=== PATIENT | male | born 1960 | race Caucasian/White ===

== ENCOUNTER 2018-10-29 19:24 | Emergency (ER) | payer BC ==
--- OUTSIDE RECORDS SUMMARY | 2018-10-29 19:26 | XMS REPORT ---
:1960 [facility] Address [address] [place] [address] [place] [id number] Care Team Providers Name Role Phone Unavailable Unavailable Unavailable Problems This patient has no known problems. Allergies, Adverse Reactions, Alerts This patient has no known allergies or adverse reactions. Medications This patient has no known medications.
--- NOTE | 2018-10-29 20:14 | RAD REPORT ---
EXAM DESCRIPTION: CT - Head Brain Wo Cont - 10/29/2018 8:04 pm CLINICAL HISTORY: SYNCOPE Head injury COMPARISON: Head Brain Wo Cont dated 03/27/2017; Head Brain W/Wo Con dated 04/11/2016 TECHNIQUE: All CT scans are performed using dose optimization technique as appropriate and may inclu de automated exposure control or mA/KV adjustment according to patient size. FINDINGS: No intracranial hemorrhage, hydrocephalus or extra-axial fluid collection.No areas of brai n edema or evidence of midline shift. The paranasal sinuses and mastoids are clear. The calvarium is intact. IMPRESSION: No acute intracranial abnormality.
[2018-10-29 20:28] LABS: Absolute Lymphocytes (CBC) 0.9 K/uL (0.7-4.9); Absolute Monocytes 0.7 K/uL (0.1-1.3); Basophils % 0.6 % (0-1.3); Eosinophils % 6.6 % (0-4.4); Hematocrit 45.1 % (39.6-49.0); MPV 8.3 fL (7.6-11.3); Monocytes % 9.5 % (3.3-12.3); RBC Red Blood Cell Count 4.87 M/uL (4.33-5.43)
[2018-10-29 20:38] LABS: Protime INR 0.97
[2018-10-29 20:53] LABS: ALT/SGPT 36 U/L (12-78); AST/SGOT 26 U/L (15-37); Alkaline Phosphatase 47 U/L (45-117); BUN Blood Urea Nitrogen 12 mg/dL (7-18); Bicarbonate 29 mmol/L (21-32); Bilirubin Direct 0.1 mg/dL (0-0.2); Bilirubin Total 0.5 mg/dL (0.2-1.0); CKMB Creatine Kinase MB 1.9 ng/mL (0.3-3.6); Creatine Phosphokinase 88 U/L (39-308); Glucose Level 97 mg/dL (74-106); Lipase 177 U/L (73-393); Magnesium 2.4 mg/dL (1.8-2.4); Potassium 3.8 mmol/L (3.5-5.1); Protein, Total 7.2 g/dL (6.4-8.2); Sodium Level 139 mmol/L (136-145); Troponin (Emerg Dept Use Only) < 0.02 ng/mL (0.0-0.045)
[2018-10-29 21:04] LABS: Urine Blood TRACE (NEG); Urine Glucose NEGATIVE (NEG); Urine Protein NEGATIVE (NEG); Urine Specific Gravity 1.005 (1.005-1.030); Urine pH 6.5 (5.0-7.0)
--- NOTE | 2018-10-29 21:55 | EDPHYS ---
Physician Documentation [facility] Name: Ramiro Toledo Age: 58 yrs Sex: Male : 1960 Arrival Date: 10/29/2018 Time: 19:25 Bed 8 Private MD: ED Physician Gibran Joe HPI: 10/30 03:06 This 58 yrs old Male presents to ER via Ambulatory with complaints of Passed tw4 Out Prior To Arrival. 03:06 The patient has experienced near-syncope, almost passed out. Onset: The tw4 symptoms/episode began/occurred today. Duration: This was a single episode. Context: the episode(s) was witnessed, by no one. Associated injury: The patient did not suffer any apparent associated injury. Associated signs and symptoms: The patient has no apparent associated signs or symptoms. The patient has not experienced similar symptoms in the past. 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 - Social history:: Smoking status: Patient/guardian denies using tobacco. - Ebola Screening: : Patient negative for fever greater than or equal to 101.5 degrees Fahrenheit, and additional compatible Ebola Virus Disease symptoms Patient denies exposure to infectious person Patient denies travel to an Ebola-affected area in the 21 days before illness onset No symptoms or risks identified at this time. ROS: 10/30 03:06 Constitutional: Negative for fever, chills, and weight loss, Cardiovascular: Negative tw4 for chest pain, palpitations, and edema, Respiratory: Negative for shortness of breath, cough, wheezing, and pleuritic chest pain, Abdomen/GI: Negative for abdominal pain, nausea, vomiting, diarrhea, and constipation, Back: Negative for injury and pain, MS/Extremity: Negative for injury and deformity, Skin: Negative for injury, rash, and discoloration. Neuro: Positive for near syncope, Negative for altered mental status, dizziness, gait disturbance, headache, hearing loss, loss of consciousness, tinnitus, tremor, visual changes. Exam: 03:06 Abdomen/GI: Inspection: abdomen appears normal, Bowel sounds: normal, Palpation: tw4 moderate abdominal tenderness, in the umbilical area. 03:06 Constitutional: This is a well developed, well nourished patient who is awake, alert, and in no acute distress. Head/Face: Normocephalic, atraumatic. Chest/axilla: Normal chest wall appearance and motion. Nontender with no deformity. No lesions are appreciated. Cardiovascular: Regular rate and rhythm with a normal S1 and S2. No gallops, murmurs, or rubs. Normal PMI, no JVD. No pulse deficits. Respiratory: Lungs have equal breath sounds bilaterally, clear to auscultation and percussion. No rales, rhonchi or wheezes noted. No increased work of breathing, no retractions or nasal flaring. Abdomen/GI: Soft, non-tender, with normal bowel sounds. No distension or tympany. No guarding or rebound. No evidence of tenderness throughout. Back: No spinal tenderness. No costovertebral tenderness. Full range of motion. MS/ Extremity: Pulses equal, no cyanosis. Neurovascular intact. Full, normal range of motion. Neuro: Awake and alert, GCS 15, oriented to person, place, time, and situation. Cranial nerves II-XII grossly intact. Motor strength 5/5 in all extremities. Sensory grossly intact. Cerebellar exam normal. Normal gait. Vital Signs: 10/29 19:53 BP 143 / 89; Pulse 78; Resp 20; Temp 98.2; Pulse Ox 98% on R/A; Weight 70.31 kg; Height aj 5 ft. 8 in. (172.72 cm); 20:30 BP 122 / 73; Pulse 75; Resp 18; Pulse Ox 98% on R/A; ca1 21:00 BP 122 / 92; Pulse 72; Resp 18; Pulse Ox 98% on R/A; ca1 22:00 BP 138 / 83; Pulse 68; Resp 18; Pulse Ox 99% on R/A; ca1 19:53 Body Mass Index 23.57 (70.31 kg, 172.72 cm) aj MDM: 20:02 Patient medically screened. tw4 10/30 03:17 Differential Diagnosis: aortic aneurysm, cardiac arrhythmia. Data reviewed: vital tw4 signs, nurses notes. Data interpreted: Pulse oximetry: Interpretation: normal. Test interpretation: by ED physician or midlevel provider: ECG. Counseling: I had a detailed discussion with the patient and/or guardian regarding: the historical points, exam findings, and any diagnostic results supporting the discharge/admit diagnosis. Special discussion: I discussed with the patient/guardian in detail that at this point there is no indication for admission to the hospital. It is understood, however, that if the symptoms persist or worsen the patient needs to return immediately for re-evaluation. 10/29 19:53 Order name: Basic Metabolic Panel; Complete Time: 21:51 10/29 21:51 Interpretation: Normal except: GFR 60. 10/29 19:53 Order name: CBC with Diff; Complete Time: 21:51 10/29 21:51 Interpretation: Normal except: MCV 92.6. 10/29 19:53 Order name: Ckmb; Complete Time: 21:51 10/29 21:51 Interpretation: Within normal limits: CKMB 1.9. 10/29 19:53 Order name: CPK; Complete Time: 21:51 10/29 21:51 Interpretation: Within normal limits: CPK 88. 10/29 19:53 Order name: Hepatic Function; Complete Time: 21:51 10/29 21:51 Interpretation: Within normal limits. 10/29 19:53 Order name: Lipase; Complete Time: 21:51 10/29 21:52 Interpretation: Within normal limits: LIP 177. 10/29 19:53 Order name: Call for Old Records; Complete Time: 20:22 10/29 19:53 Order name: Call for Old EKG; Complete Time: 20:22 10/29 19:53 Order name: CT Head Brain wo Cont; Complete Time: 21:51 10/29 21:51 Interpretation: No acute disease. 10/29 19:53 Order name: Magnesium; Complete Time: 21:52 10/29 21:52 Interpretation: MG 2.4. 10/29 19:53 Order name: Protime (+inr); Complete Time: 21:52 10/29 21:52 Interpretation: Within normal limits: PT 11.4. 10/29 19:53 Order name: Ptt, Activated 10/29 19:53 Order name: Troponin (emerg Dept Use Only); Complete Time: 21:54 10/29 21:54 Interpretation: Within normal limits: TROPED < 0.02. 10/29 20:28 Order name: Urine Dipstick--Ancillary (enter results) [facility] 10/29 19:53 Order name: EKG; Complete Time: 19:54 10/29 19:53 Order name: Cardiac monitoring; Complete Time: 20:22 10/29 19:53 Order name: EKG - Nurse/Tech; Complete Time: 20:23 10/29 19:53 Order name: IV Saline Lock; Complete Time: 20:23 10/29 19:53 Order name: Labs collected and sent; Complete Time: 20:23 10/29 19:53 Order name: NPO; Complete Time: 20:23 10/29 19:53 Order name: O2 Per Protocol; Complete Time: 20:23 10/29 19:53 Order name: O2 Sat Monitoring; Complete Time: 20:23 10/29 19:53 Order name: Urine Dipstick-Ancillary (obtain specimen); Complete Time: 20:23 EC:06 Rate is 73 beats/min. Rhythm is regular. QRS [place] is Normal. AL interval is normal. QRS tw4 interval is normal. QT interval is normal. No Q waves. T waves are Normal. No ST changes noted. Clinical impression: Normal ECG. Interpreted by me. Reviewed by me. Administered Medications: No medications were administered Disposition: 10/29/18 21:55 Discharged to Home. Impression: near syncope, Vasovagal episode. - Condition is Stable. - Discharge Instructions: Vasovagal Syncope, Adult. - Medication Reconciliation Form, Thank You Letter, Antibiotic Education, Prescription Opioid Use form. - Follow up: Private Physician; When: Upon discharge from the Emergency Department; Reason: Recheck today's complaints, Continuance of care. - Problem is new. - Symptoms have improved. Signatures: Dispatcher [employer] EDAngie García RN RN aj Wadley, Terrence, MD MD tw4 Fay Mendez RN RN ca1 Corrections: (The following items were deleted from the chart) 10/29 22:16 21:55 10/29/2018 21:55 Discharged to Home. Impression: near syncope; Vasovagal episode. ca1 Condition is Stable. Forms are Medication Reconciliation Form, Thank You Letter, Antibiotic Education, Prescription Opioid Use. Follow up: Private Physician; When: Upon discharge from the Emergency Department; Reason: Recheck today's complaints, Continuance of care. Problem is new. Symptoms have improved. tw4
--- NOTE | 2018-10-29 21:55 | ER ---
Nurse's Notes 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 Patient reports catching himself before he hit the floor and assisted himself to the ground. Transition of care: patient was not received from another setting of care. Onset of symptoms was October 29, 2018. Risk Assessment: Do you want to hurt yourself or someone else? Patient reports no desire to harm self or others. Initial Sepsis Screen: Does the patient meet any 2 criteria? No. Patient's initial sepsis screen is negative. Does the patient have a suspected source of infection? No. Patient's initial sepsis screen is negative. Care prior to arrival: None. 19:51 Method Of Arrival: Ambulatory 19:51 Acuity: LATASHA 3 aj Triage Assessment: 19:53 General: Appears in no apparent distress. comfortable, Behavior is calm, cooperative, aj appropriate for age. Pain: Denies pain. Neuro: Level of Consciousness is awake, alert, obeys commands, Oriented to person, place, time, situation, Appropriate for age Reports a syncopal episode. Respiratory: Airway is patent Respiratory effort is even, unlabored, Respiratory pattern is regular, symmetrical. Derm: Skin is intact, is healthy with good turgor, Skin is pink, warm \T\ dry. normal. Historical: - Allergies: 19:53 No Known Allergies; aj - Home Meds: 19:53 Lipitor 10 mg Oral tab 1 tab once daily [Active]; symbacort inh [Active]; levothyroxine aj 50 mcg tab 1 tab once daily [Active]; atorvastatin 10 mg oral tab 1 tab once daily [Active]; aspirin 81 mg Oral chew 1 tab once daily [Active]; - PMHx: 19:53 tonsillar cancer; CVA; aj - PSHx: 19:53 Knee surgery; elbow; shoulder; aj - Immunization history:: Adult Immunizations up to date. - Social history:: Smoking status: Patient/guardian denies using tobacco. - Ebola Screening: : Patient negative for fever greater than or equal to 101.5 degrees Fahrenheit, and additional compatible Ebola Virus Disease symptoms Patient denies exposure to infectious person Patient denies travel to an Ebola-affected area in the 21 days before illness onset No symptoms or risks identified at this time. Screenin:55 Abuse screen: Denies threats or abuse. Denies injuries from another. Nutritional ca1 screening: No deficits noted. Tuberculosis screening: No symptoms or risk factors identified. Fall Risk Fall in past 12 months (25 points). Assessment: 19:55 General: Appears in no apparent distress. Behavior is calm, cooperative. Pain: Denies ca1 pain. Neuro: Level of Consciousness is awake, alert, obeys commands, Oriented to person, place, time, situation. Cardiovascular: Reports syncope, since around 1900H while trying to hold his breath to relieve a hiccup. Heart tones S1 S2 present Capillary refill < 3 seconds Patient's skin is warm and dry. 19:55 Respiratory: Airway is patent Trachea midline Respiratory effort is even, unlabored, ca1 Respiratory pattern is regular, symmetrical, Breath sounds are clear bilaterally. GI: Abdomen is flat, non-distended, Bowel sounds present X 4 quads. Abd is soft and non tender X 4 quads. : No signs and/or symptoms were reported regarding the genitourinary system. EENT: No signs and/or symptoms were reported regarding the EENT system. Derm: Skin is intact, is healthy with good turgor, Skin is pink, warm \T\ dry. Musculoskeletal: Circulation, motion, and sensation intact. Capillary refill < 3 seconds, Range of motion: intact in all extremities. 21:28 Reassessment: Patient appears in no apparent distress at this time. Patient and/or ca1 family updated on plan of care and expected duration. Pain level reassessed. Patient is alert, oriented x 3, equal unlabored respirations, skin warm/dry/pink. sitting on bed with family at bedside. 22:00 Reassessment: Patient appears in no apparent distress at this time. Patient and/or ca1 family updated on plan of care and expected duration. Pain level reassessed. Patient is alert, oriented x 3, equal unlabored respirations, skin warm/dry/pink. Vital Signs: 19:53 BP 143 / 89; Pulse 78; Resp 20; Temp 98.2; Pulse Ox 98% on R/A; Weight 70.31 kg; Height aj 5 ft. 8 in. (172.72 cm); 20:30 BP 122 / 73; Pulse 75; Resp 18; Pulse Ox 98% on R/A; ca1 21:00 BP 122 / 92; Pulse 72; Resp 18; Pulse Ox 98% on R/A; ca1 22:00 BP 138 / 83; Pulse 68; Resp 18; Pulse Ox 99% on R/A; ca1 19:53 Body Mass Index 23.57 (70.31 kg, 172.72 cm) ED Course: 19:25 Patient arrived in ED. ag3 19:52 Triage completed. 19:53 Arm band placed on left wrist. Patient placed in an exam room. 19:55 Patient has correct armband on for positive identification. Placed in gown. Bed in low ca1 position. Call light in reach. Side rails up X 1. talent acquisition assistant on. Pulse ox on. NIBP on. Warm blanket given. 19:[address] 2 20:00 Initial lab(s) drawn, by ED staff, sent to lab. Inserted saline lock: 20 gauge in left ca1 antecubital area, using aseptic technique. Blood collected. 20:02 Gibran Joe MD is Attending Physician. tw4 20:05 Fay Mendez RN is Primary Nurse. ca1 20:08 CT Head Brain wo Cont In Process Unspecified. EDMS 22:10 No provider procedures requiring assistance completed. IV discontinued, intact, ca1 bleeding controlled, No redness/swelling at site. Pressure dressing applied. Administered Medications: No medications were administered Outcome: 21:55 Discharge ordered by . tw4 22:10 Discharged to home ambulatory, with significant other. ca1 22:10 Condition: stable 22:10 Discharge instructions given to patient, significant other, Instructed on discharge instructions, follow up and referral plans. Demonstrated understanding of instructions, follow-up care. 22:16 Patient left the ED. ca1 Signatures: Dispatcher [employer] EDAngie García, RN RN Miryam [facility] Gibran Joe MD MD [facility] Isabel Ortiz 3 Fay Mendez RN RN ca1 Corrections: (The following items were deleted from the chart) 21:23 19:55 Cardiovascular: Reports syncope, since 1900H. Heart tones S1 S2 present ca1 ca1 : 21:00 Abuse screen: Denies threats or abuse. Denies injuries from another. ca1 ca1 21:00 Nutritional screening: No deficits noted. ca1 ca1 :: Tuberculosis screening: No symptoms or risk factors identified. ca1 ca1 : 21: Fall Risk Fall in past 12 months (25 points). ca1 ca1
[2018-10-29 22:23] VITALS: TEMP 98.2
[2018-10-29 22:28] VITALS: BP 138/83; O2SAT 99
--- NOTE | 2018-10-30 07:36 | EKG ---
Test Date: 2018-10-29 Test Time: 20:17:07 Receptionist/Telephone Operator: LIANNA MEASUREMENT RESULTS: Intervals: Rate: 73 FL: 162 QRSD: 98 QT: 380 QTc: 418 [place]: P: 58 FL: 162 QRS: 69 T: 48 INTERPRETIVE STATEMENTS: Normal sinus rhythm Normal ECG Compared to ECG 03/27/2017 20:15:27 Right-axis deviation no longer present Incomplete right bundle-branch block no longer present ST (T wave) deviation no longer present Electronically Signed On 10-30-18 07:36:02 FRAMING MANAGER by Conrado Astudillo
== END 2018-10-29 22:16 | disposition home or self-care (01) ==
LOC: ER 19:24
DX: R55 Syncope and collapse (principal); Z86.73 Personal history of transient ischemic attack (TIA), and cerebral infarction without residual deficits
CPT/HCPCS: 36415; 70450; 80048; 80076; 81003; 82550; 82553; 83690; 83735; 84484; 85025; 85610; 85730; 93005; 99285

== ENCOUNTER 2021-02-28 10:47 | Inpatient (IN) | payer BC ==
--- OUTSIDE RECORDS SUMMARY | 2021-02-28 10:51 | XMS REPORT | Continuity of Care Document ---
:[address] [facility] t Address [address] [place] [address] Care Team Providers Name Role Phone Checo BERMUDEZ Attending Clinician Problems This patient has no known problems. Allergies, Adverse Reactions, Alerts This patient has no known allergies or adverse reactions. Medications This patient has no known medications. Procedures This patient has no known procedures. Encounters Start End Encounter Admission Attending Care Care Encounter Source Date/Time Date/Time Type Type Clinicians Facility Department ID 2021-02-21 2021-02-21 Office BUD [place] [id number] 06:54:52 07:30:14 Visit [facility] [id number] [place] [id number] [place] [id number] [place] 044 Office [address] One Results This patient has no known results.
--- NOTE | 2021-02-28 11:13 | RAD REPORT ---
EXAM DESCRIPTION: CT - Ct Stroke Brain Wo Cont - 02/28/2021 11:03 am CLINICAL HISTORY: LT SIDE NUMBNESS COMPARISON: Head Brain Wo Cont dated 10/29/2018 TECHNIQUE: Axial 5 millimeter thick images of the head were obtained without IV contrast. All CT scans are performed using dose optimization technique as appropriate and may include automated exposure control or mA/KV adjustment according to patient size. FINDINGS: No intracranial hemorrhage is present. There is no mass, edema or shift of midline structu res. No acute cortical based infarction identified. No cortical edema or sulcal effacement. No extra- axial fluid collections. Patten matter-white matter differentiation is preserved.No significant atroph y changes are present and no significant chronic ischemic change. Intracranial findings are similar t o the October comparison. Visualized portions of the mastoid air cells, paranasal sinuses, and orbits are unremarkable. Findings telephoned to Dr Pandey 11:07 a.m.. IMPRESSION: No CT evidence of acute intracranial process. No significant change from October 2018.
[2021-02-28] MEDS ORDERED: ASPIRIN 81 MG CHEWABLE TABLET ONE (11:46)
[2021-02-28 11:47] LABS: Protime INR 0.86
[2021-02-28] MEDS ORDERED: NA CHLORIDE 0.9% 1,000 ML ONE (11:47)
[2021-02-28] MEDS ORDERED: FOLIC ACID 5 MG/ML VIAL ONE (11:47)
[2021-02-28 11:50] LABS: Absolute Lymphocytes (CBC) 0.8 K/uL (0.7-4.9); Basophils % 0.4 % (0-1.3); Hematocrit 42.4 % (39.6-49.0); Lymphocytes % 9.9 % (15.3-44.8); MPV 9.4 fL (7.6-11.3); RBC Red Blood Cell Count 4.72 M/uL (4.33-5.43)
--- NOTE | 2021-02-28 12:07 | RAD REPORT ---
EXAM DESCRIPTION: MRI - Brain Wo Cont - 02/28/2021 11:52 am CLINICAL HISTORY: NUMBNESS COMPARISON: MRA Head Wo Cont dated 06/20/2016 TECHNIQUE: Sagittal T1-weighted images were obtained along with axial PD, heavily T2-weighted and T2 -FLAIR images. Axial DWI and ADC mapping sequences were also obtained along with coronal heavily T2-w eighted images. FINDINGS: No intracranial hemorrhage is present. Diffusion-weighted imaging shows multiple punctate areas of restricted diffusion scattered in the frontal and parietal lobes. There is corresponding dim inished signal on ADC mapping. This shower emboli pattern is in the distribution of the right middle cerebral artery. No anterior or posterior cerebral artery distribution infarction changes are present . The left hemisphere is clear. No abnormalities of the cerebellum. A minimal focus of gliosis is present in the posterior medial and inferior aspect of the left occipit al lobe. Overall patient has no measurable chronic ischemic change and no significant atrophy. Ventri cles are normal. There is no edema or shift of midline structures. No extra-axial fluid collections. Patten-matter/white matter junction is preserved. Signal voids are seen as a normal finding in the you r intracranial vessels. No sella or supra sella abnormality. Mastoid air cells and paranasal sinuses are clear. Findings discussed with doctor Pandey 12:03 p.m. IMPRESSION: Patient has several punctate nonhemorrhagic foci of acute infarction in the right fronta l and parietal lobes in the distribution of the right middle cerebral artery. This shower emboli pattern could be arising from the proximal right middle cerebral artery. A more p roximal source for shower emboli is possible as well given the dominant distribution pattern of the r ight middle cerebral artery. Patient has no significant underlying atrophy or chronic ischemic change. There does appear to be in minute focus of gliosis in the posteromedial left occipital lobe.
--- NOTE | 2021-02-28 12:13 | ER ---
Nurse's Notes [facility] Name: Ramiro Toledo Age: 61 yrs Sex: Male : 1960 Arrival Date: 02/28/2021 Time: 10:49 Bed 25 Private MD: Quintin Kessler S Diagnosis: Cerebral infarction-acute, onset 930 am, confirmed Presentation: 02/28 11:06 Chief complaint: Patient states: about 930 i noticed it felt like a sack of bricks on tw2 my neck, there is tingling \T\ numbness in my left arm and my left 3rd, 4th, \T\ 5th finger. i have herniated disc in my neck so it thought it was that but it also feels like numbness in my tongue and like i am having trouble swallowing. Chief complaint: Spouse and/or significant other states: he also had a previous stroke. Coronavirus screen: At this time, the client does not indicate any symptoms associated with coronavirus-19. Ebola Screen: Patient denies travel to an Ebola-affected area in the 21 days before illness onset. Initial Sepsis Screen: Does the patient meet any 2 criteria? No. Patient's initial sepsis screen is negative. Does the patient have a suspected source of infection? No. Patient's initial sepsis screen is negative. Risk Assessment: Do you want to hurt yourself or someone else?. Onset of symptoms was February 28, 2021 at 09:30. 11:06 Method Of Arrival: Wheelchair tw2 11:06 Acuity: LATASHA 2 tw2 Triage Assessment: 11:09 General: Appears in no apparent distress. slender, Behavior is calm, cooperative, tw2 appropriate for age. Pain: Denies pain. Neuro: Reports numbness in left side of face, tongue, and left arm since 929. 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 - Social history:: Smoking status: . - Family history:: not pertinent. Screenin:14 Abuse screen: Denies threats or abuse. Denies injuries from another. Nutritional ss screening: No deficits noted. Tuberculosis screening: Never had TB. Fall Risk None identified. 11:15 VAN Screening: Arm Drift: Patient shows no arm weakness. Patient is VAN negative. bp Assessment: 11:00 General: SEE TRIAGE NOTE. PT RETURNED FROM CT. bp 11:35 Reassessment: Patient appears in no apparent distress at this time. Patient and/or bp family updated on plan of care and expected duration. Pain level reassessed. PT TO MRI Patient states symptoms have improved. 12:19 Reassessment: CONSENT FOR TPA SIGNED AND WITNESSED. PT NIHSS AT 0. bp 13:00 Reassessment: No changes from previously documented assessment. U/S AT B/S FOR CAROTIDS.bp 13:30 Reassessment: Patient appears in no apparent distress at this time. No changes from bp previously documented assessment. Patient and/or family updated on plan of care and expected duration. Pain level reassessed. PT TO CT. TPA INFUSION COMPLETED. PT ON ER HOLD, SEE [facility]. Vital Signs: 11:10 BP 124 / 79; tw2 11:15 BP 129 / 89; Pulse 82; Resp 19; Temp 98; Pulse Ox 100% ; Weight 67.2 kg; bp 12:20 BP 121 / 106; Pulse 81; Resp 17; Pulse Ox 100% ; bp 13:30 BP 142 / 72; Pulse 80; Resp 17; Pulse Ox 99% ; bp NIH Stroke Scale Scores: 11:15 NIHSS Score: 0 bp 11:29 NIHSS Score: 0 mervat ED Course: 10:49 Patient arrived in ED. mr 10:50 Quintin Kessler MD is Private Physician. mr 11:03 Ct Stroke Brain Wo Cont In Process Unspecified. EDMS 11:08 Triage completed. tw2 11:08 Arm band placed on. tw2 11:12 Raul Pandey MD is Attending Physician. mervat 11:14 EKG done, by ED staff, reviewed by Raul Pandey MD. ss 11:15 Inserted saline lock: 20 gauge in left forearm, using aseptic technique. Blood bp collected. 11:20 Julius Willard, RN is Primary Nurse. bp 11:32 XRAY Chest (1 view) In Process Unspecified. EDMS 11:37 Patient has correct armband on for positive identification. Bed in low position. Call bp light in reach. Side rails up X2. Adult w/ patient. 11:52 Brain Wo Cont In Process Unspecified. EDMS 12:12 Tessie Grajeda MD is Hospitalizing Provider. mervat 12:29 Radiology exam delayed due to. aa4 13:30 No provider procedures requiring assistance completed. Patient admitted, IV remains in bp place. 21:42 Primary Nurse role handed off by Julius Willard, RN tt3 Administered Medications: 11:30 Drug: NS 0.9% 1000 ml Route: IV; Rate: 1 bolus; Site: left forearm; bp 12:35 Follow up: IV Status: Completed infusion; IV Intake: 1000ml bp 11:30 Drug: foLIC Acid 1 mg Route: IVPB; Site: left forearm; bp 12:36 Follow up: IV Status: Completed infusion bp 11:30 Drug: Aspirin Chewable Tablet 324 mg Route: PO; bp 12:19 Follow up: Response: No adverse reaction bp 12:30 Drug: ACTIvase (alteplase) {Co-Signature: sv (Daija Hutchinson RN).} Route: IV bp Thrombolytics; Rate: calculated rate; Infused Over: 60 mins; Intake: 12:35 IV: 1000ml; Total: 1000ml. bp Outcome: 12:13 Decision to Hospitalize by Provider. mervat 13:30 Admitted to ER Hold. Please see [facility] for further documentation. bp 13:30 Condition: stable 13:30 Instructed on the need for admit. 03/01 18:50 Patient left the ED. aa5 NIH Stroke Scale - NIH Stroke Score Date: 02/28/2021 Time: 11:15 Total Score = 0 1a. Level of Consciousness (LOC) - 0(Alert) 1b. Level of Consciousness (LOC) (Year \T\ Age) - 0(Both) 1c. LOC Commands (Open \T\ Closes Eyes/Investment Fund Manager) - 0(Both) 2. Best Gaze (Lateral Gaze Paresis) - 0(Normal) 3. Visual Field Loss - 0(No visual loss) 4. Facial Palsy - 0(Normal) 5a. Left Arm: Motor (10-second hold) - 0(No drift) 5b. Right Arm: Motor (10-second hold) - 0(No drift) 6a. Left Leg: Motor (5-second hold - always test supine) - 0(No drift) 6b. Right Leg: Motor (5-second hold - always test supine) - 0(No drift) 7. Limb Ataxia (finger/nose \T\ heel/solano - test with eyes open) - 0(Absent) 8. Sensory Loss (pinprick arms/legs/face) - 0(Normal) 9. Best Language: Aphasia (description/naming/reading) - 0(No aphasia) 10. Dysarthria (speech clarity - read or repeat words) - 0(Normal) 11. Extinction and Inattention (visual/tactile/auditory/spatial/personal) - 0(No abnormality) Initials: bp NIH Stroke Scale - NIH Stroke Score Date: 02/28/2021 Time: 11:29 Total Score = 0 1a. Level of Consciousness (LOC) - 0(Alert) 1b. Level of Consciousness (LOC) (Year \T\ Age) - 0(Both) 1c. LOC Commands (Open \T\ Closes Eyes/Investment Fund Manager) - 0(Both) 2. Best Gaze (Lateral Gaze Paresis) - 0(Normal) 3. Visual Field Loss - 0(No visual loss) 4. Facial Palsy - 0(Normal) 5a. Left Arm: Motor (10-second hold) - 0(No drift) 5b. Right Arm: Motor (10-second hold) - 0(No drift) 6a. Left Leg: Motor (5-second hold - always test supine) - 0(No drift) 6b. Right Leg: Motor (5-second hold - always test supine) - 0(No drift) 7. Limb Ataxia (finger/nose \T\ heel/solano - test with eyes open) - 0(Absent) 8. Sensory Loss (pinprick arms/legs/face) - 0(Normal) 9. Best Language: Aphasia (description/naming/reading) - 0(No aphasia) 10. Dysarthria (speech clarity - read or repeat words) - 0(Normal) 11. Extinction and Inattention (visual/tactile/auditory/spatial/personal) - 0(No abnormality) Initials: mervat Signatures: Dispatcher [employer] Raul Jacob MD MD cha Rivera Guillermina mr Green, Angie aa4 Milly Vázquez, RN RN aa5 Debbie Jacobsen, BAM RN ss Dona Gaston RN RN tw2 Julius Willard RN RN bp Garland, Phillip tt3 aDija Hutchinson RN sv Corrections: (The following items were deleted from the chart) 02/28 11:37 11:15 BP 129 / 89; Pulse 82bpm; Resp 19bpm; Pulse Ox 100%; bp bp 12:17 11:15 BP 129 / 89; Pulse 82bpm; Resp 19bpm; Pulse Ox 100%; Temp 98F; bp bp 13:37 13:30 Reassessment: Patient appears in no apparent distress at this time. No bp changes from previously documented assessment. Patient and/or family updated on plan of care and expected duration. Pain level reassessed. PT TO CT. TPA INFUSION COMPLETED bp
--- NOTE | 2021-02-28 12:14 | EDPHYS ---
Physician Documentation [facility] Name: Ramiro Toledo Age: 61 yrs Sex: Male : 1960 Arrival Date: 02/28/2021 Time: 10:49 Bed 25 Private MD: Quintin Kessler S ED Physician Raul Pandey HPI: 02/28 11:23 This 61 yrs old Male presents to ER via Wheelchair with complaints of mervat Numbness Of Arm, Facial Numbness. 11:23 The patient or guardian complains of numbness fingers 3.4 and 5, left trap and cheek, mervat 90 % resolved occurred at 930 am. The complaints affect the left hand. Context: The problem was sustained at work. Onset: The symptoms/episode began/occurred just prior to arrival, 2 hour(s) ago. Treatment prior to arrival includes: no previous treatment. Modifying factors: The symptoms are alleviated by nothing. the symptoms are aggravated by nothing. Associated signs and symptoms: Pertinent positives: numbness, tingling, of the face, back and left hand. Severity of symptoms: At their worst the symptoms were mild, in the emergency department the symptoms have resolved, 90 %, not a tpa candidate. The patient has not experienced similar symptoms in the past. 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 - Social history:: Smoking status: . - Family history:: not pertinent. ROS: 11:23 Constitutional: Negative for fever, chills, and weight loss, Eyes: Negative for injury, mervat pain, redness, and discharge, ENT: Negative for injury, pain, and discharge, Neck: Negative for injury, pain, and swelling, Cardiovascular: Negative for chest pain, palpitations, and edema, Respiratory: Negative for shortness of breath, cough, wheezing, and pleuritic chest pain, Abdomen/GI: Negative for abdominal pain, nausea, vomiting, diarrhea, and constipation, Back: Negative for injury and pain, : Negative for injury, bleeding, discharge, and swelling, MS/Extremity: Negative for injury and deformity, Skin: Negative for injury, rash, and discoloration, Psych: Negative for depression, anxiety, suicide ideation, homicidal ideation, and hallucinations, Allergy/Immunology: Negative for hives, rash, and allergies, Endocrine: Negative for neck swelling, polydipsia, polyuria, polyphagia, and marked weight changes. 11:23 Neuro: Positive for numbness, of the face, back and left hand. Exam: 11:23 Constitutional: This is a well developed, well nourished patient who is awake, alert, mervat and in no acute distress. Head/Face: Normocephalic, atraumatic. Eyes: Pupils equal round and reactive to light, extra-ocular motions intact. Lids and lashes normal. Conjunctiva and sclera are non-icteric and not injected. Cornea within normal limits. Periorbital areas with no swelling, redness, or edema. ENT: Nares patent. No nasal discharge, no septal abnormalities noted. Tympanic membranes are normal and external auditory canals are clear. Oropharynx with no redness, swelling, or masses, exudates, or evidence of obstruction, uvula midline. Mucous membranes moist. Neck: Trachea midline, no thyromegaly or masses palpated, and no cervical lymphadenopathy. Supple, full range of motion without nuchal rigidity, or vertebral point tenderness. No Meningismus. Chest/axilla: Normal chest wall appearance and motion. Nontender with no deformity. No lesions are appreciated. Cardiovascular: Regular rate and rhythm with a normal S1 and S2. No gallops, murmurs, or rubs. Normal PMI, no JVD. No pulse deficits. Respiratory: Lungs have equal breath sounds bilaterally, clear to auscultation and percussion. No rales, rhonchi or wheezes noted. No increased work of breathing, no retractions or nasal flaring. Abdomen/GI: Soft, non-tender, with normal bowel sounds. No distension or tympany. No guarding or rebound. No evidence of tenderness throughout. Back: No spinal tenderness. No costovertebral tenderness. Full range of motion. Male : Normal genitalia with no discharge or lesions. Skin: Warm, dry with normal turgor. Normal color with no rashes, no lesions, and no evidence of cellulitis. MS/ Extremity: Pulses equal, no cyanosis. Neurovascular intact. Full, normal range of motion. Neuro: Awake and alert, GCS 15, oriented to person, place, time, and situation. Cranial nerves II-XII grossly intact. Motor strength 5/5 in all extremities. Sensory grossly intact. Cerebellar exam normal. Normal gait. Psych: Awake, alert, with orientation to person, place and time. Behavior, mood, and affect are within normal limits. 11:32 ECG was reviewed by the Attending Physician. [facility] Vital Signs: 11:10 BP 124 / 79; tw2 11:15 BP 129 / 89; Pulse 82; Resp 19; Temp 98; Pulse Ox 100% ; Weight 67.2 kg; bp 12:20 BP 121 / 106; Pulse 81; Resp 17; Pulse Ox 100% ; bp 13:30 BP 142 / 72; Pulse 80; Resp 17; Pulse Ox 99% ; bp NIH Stroke Scale Scores: 11:15 NIHSS Score: 0 bp 11:29 NIHSS Score: 0 mervat MDM: 11:12 Patient medically screened. [facility] 11:30 Data reviewed: vital signs, nurses notes, lab test result(s), EKG, radiologic studies. [facility] Data interpreted: monitoring specialist: rate is 82 beats/min, rhythm is normal sinus rhythm, Pulse oximetry: on room air is 100 %. Test interpretation: by ED physician or midlevel provider: ECG, plain radiologic studies. Counseling: I had a detailed discussion with the patient and/or guardian regarding: the historical points, exam findings, and any diagnostic results supporting the discharge/admit diagnosis, lab results, radiology results. 12:23 Physician consultation: Reese Frazier MD and will see patient in inpatient room, with [facility] results of mri , tpa recommended , within 3 hour window, onset 930pm. ED course: family wanted to confirm cva on mri before tpa, since within the window and 90% pluce back to normal. 02/28 11:14 Order name: Basic Metabolic Panel; Complete Time: 13:20 [facility] 02/28 11:14 Order name: CBC with Diff; Complete Time: 13:20 [facility] 02/28 11:14 Order name: LFT's; Complete Time: 13:20 [facility] 02/28 11:14 Order name: Magnesium; Complete Time: 13:20 [facility] 02/28 11:14 Order name: NT PRO-BNP; Complete Time: 13:20 [facility] 02/28 11:14 Order name: PT-INR; Complete Time: 12:15 [facility] 02/28 11:14 Order name: Troponin (emerg Dept Use Only); Complete Time: 13:20 [facility] 02/28 11:14 Order name: Sed Rate; Complete Time: 13:20 [facility] 02/28 11:14 Order name: CRP; Complete Time: 13:20 [facility] 02/28 11:25 Order name: Glucose, Ancillary Testing [facility] 02/28 13:12 Order name: SARS-COV-2 RT PCR; Complete Time: 13:20 [facility] 02/28 23:47 Order name: Urinalysis [facility] 03/01 06:01 Order name: CBC with Automated Diff [facility] 02/28 11:02 Order name: Ct Stroke Brain Wo Cont; Complete Time: 12:15 [facility] 02/28 11:14 Order name: XRAY Chest (1 view); Complete Time: 13:20 [facility] 02/28 11:23 Order name: US Carotid Artery Bilateral [facility] 02/28 11:50 Order name: Brain Wo Cont; Complete Time: 12:15 [facility] 02/28 12:08 Order name: CT Head Angio [facility] 02/28 12:08 Order name: Echo w/ Doppler [facility] 02/28 12:10 Order name: Neck Angio [facility] 02/28 14:10 Order name: CT [facility] 02/28 14:47 Order name: US [facility] 03/01 06:06 Order name: Basic Metabolic Panel [facility] 03/01 06:06 Order name: Lipid Profile [facility] 03/01 06:26 Order name: PTT, Activated Partial Thromb [facility] 02/28 11:14 Order name: EKG; Complete Time: 11:16 [facility] 02/28 11:14 Order name: Cardiac monitoring; Complete Time: 11:16 [facility] 02/28 11:14 Order name: EKG - Nurse/Tech; Complete Time: 11:16 [facility] 02/28 11:14 Order name: IV Saline Lock; Complete Time: 11:16 [facility] 02/28 11:14 Order name: Labs collected and sent; Complete Time: 11:16 [facility] 02/28 11:14 Order name: O2 Per Protocol; Complete Time: 11:16 [facility] 02/28 11:14 Order name: O2 Sat Monitoring; Complete Time: : [facility] 02/28 11:15 Order name: Urine Dipstick-Ancillary (obtain specimen); Complete Time: 20:23 [facility] EC:32 Rate is 77 beats/min. Rhythm is regular. QRS [place] is Normal. MD interval is normal. QRS mervat interval is normal. QT interval is normal. No Q waves. T waves are Normal. No ST changes noted. Clinical impression: Normal ECG and No evidence of ischemia. Interpreted by me. Reviewed by me. Administered Medications: 11:30 Drug: NS 0.9% 1000 ml Route: IV; Rate: 1 bolus; Site: left forearm; bp 12:35 Follow up: IV Status: Completed infusion; IV Intake: 1000ml bp 11:30 Drug: foLIC Acid 1 mg Route: IVPB; Site: left forearm; bp 12:36 Follow up: IV Status: Completed infusion bp 11:30 Drug: Aspirin Chewable Tablet 324 mg Route: PO; bp 12:19 Follow up: Response: No adverse reaction bp 12:30 Drug: ACTIvase (alteplase) {Co-Signature: sv (Daija Hutchinson RN).} Route: IV bp Thrombolytics; Rate: calculated rate; Infused Over: 60 mins; Disposition: 02/28/21 12:13 Hospitalization ordered by Tessie Grajeda for Inpatient Admission. Preliminary diagnosis is Cerebral infarction - acute, onset 930 am, confirmed. - Bed requested for Telemetry/MedSurg (Inpatient). - Status is Inpatient Admission. aa5 - Condition is Stable. - Problem is new. - Symptoms have improved. NIH Stroke Scale - NIH Stroke Score Date: 02/28/2021 Time: 11:15 Total Score = 0 1a. Level of Consciousness (LOC) - 0(Alert) 1b. Level of Consciousness (LOC) (Year \T\ Age) - 0(Both) 1c. LOC Commands (Open \T\ Closes Eyes/Vascular Manager) - 0(Both) 2. Best Gaze (Lateral Gaze Paresis) - 0(Normal) 3. Visual Field Loss - 0(No visual loss) 4. Facial Palsy - 0(Normal) 5a. Left Arm: Motor (10-second hold) - 0(No drift) 5b. Right Arm: Motor (10-second hold) - 0(No drift) 6a. Left Leg: Motor (5-second hold - always test supine) - 0(No drift) 6b. Right Leg: Motor (5-second hold - always test supine) - 0(No drift) 7. Limb Ataxia (finger/nose \T\ heel/solano - test with eyes open) - 0(Absent) 8. Sensory Loss (pinprick arms/legs/face) - 0(Normal) 9. Best Language: Aphasia (description/naming/reading) - 0(No aphasia) 10. Dysarthria (speech clarity - read or repeat words) - 0(Normal) 11. Extinction and Inattention (visual/tactile/auditory/spatial/personal) - 0(No abnormality) Initials: bp NIH Stroke Scale - NIH Stroke Score Date: 02/28/2021 Time: Total Score = 0 1a. Level of Consciousness (LOC) - 0(Alert) 1b. Level of Consciousness (LOC) (Year \T\ Age) - 0(Both) 1c. LOC Commands (Open \T\ Closes Eyes/Vascular Manager) - 0(Both) 2. Best Gaze (Lateral Gaze Paresis) - 0(Normal) 3. Visual Field Loss - 0(No visual loss) 4. Facial Palsy - 0(Normal) 5a. Left Arm: Motor (10-second hold) - 0(No drift) 5b. Right Arm: Motor (10-second hold) - 0(No drift) 6a. Left Leg: Motor (5-second hold - always test supine) - 0(No drift) 6b. Right Leg: Motor (5-second hold - always test supine) - 0(No drift) 7. Limb Ataxia (finger/nose \T\ heel/solano - test with eyes open) - 0(Absent) 8. Sensory Loss (pinprick arms/legs/face) - 0(Normal) 9. Best Language: Aphasia (description/naming/reading) - 0(No aphasia) 10. Dysarthria (speech clarity - read or repeat words) - 0(Normal) 11. Extinction and Inattention (visual/tactile/auditory/spatial/personal) - 0(No abnormality) Initials: mervat Signatures: Dispatcher [employer] Amparo Russell Corey, MD MD cha Calderon, Audri, RN RN aa5 Debbie Jacobsen, RN RN ss Dona Gaston, RN RN tw2 Julius Willard, RN RN bp Daija Hutchinson RN sv Corrections: (The following items were deleted from the chart) 11:28 11:15 Neck Angio ordered. EDUT EDMS 11:28 11:16 Head Angio+CT.RAD.BRZ ordered. EDUT EDMS 11:50 11:23 MR STROKE PROTOCOL+MRI.RAD.BRZ ordered. EDUT EDMS 12:28 11:16 CORONAVIRUS+MR.LAB.BRZ ordered. EDUT EDMS 13:37 12:13 Hospitalization Ordered by Tessie Grajeda MD for Inpatient Admission. bp Preliminary diagnosis is Cerebral infarction - acute, onset 930 am, confirmed. Bed requested for Intensive Care Unit. Status is Inpatient Admission. Condition is Stable. Problem is new. Symptoms have improved. mervat 03/01 17:37 05/04 13:37 02/28/2021 12:13 Hospitalization Ordered by Tessie Grajeda MD for bd Inpatient Admission. Preliminary diagnosis is Cerebral infarction - acute, onset 930 am, confirmed. Bed requested for [facility] ER HOLD. Status is Inpatient Admission. Condition is Stable. Problem is new. Symptoms have improved. bp 03/01 18:50 17:37 02/28/2021 12:13 Hospitalization Ordered by Tessie Grajeda MD for aa5 Inpatient Admission. Preliminary diagnosis is Cerebral infarction - acute, onset 930 am, confirmed. Bed requested for Telemetry/MedSurg (Inpatient). Status is Inpatient Admission. Condition is Stable. Problem is new. Symptoms have improved. bd
--- NOTE | 2021-02-28 12:29 | RAD REPORT ---
EXAM DESCRIPTION: RAD - Chest Single View - 02/28/2021 11:32 am CLINICAL HISTORY: COUGH, chest pressure COMPARISON: May 2016 TECHNIQUE: AP portable chest image was obtained 02/28/2021 11:32 am . FINDINGS: Lungs are clear. Heart and vasculature are normal. No measurable pleural effusion and no p neumothorax. No acute bony abnormality seen. No acute aortic findings suspected. IMPRESSION: No acute cardiopulmonary process. No significant change from comparison study.
[2021-02-28] MEDS ORDERED: NA CHLORIDE 0.9% 250 ML ONE (12:32)
[2021-02-28] MEDS ORDERED: ALTEPLASE 100 ML IV ONE (12:32)
[2021-02-28] MEDS ORDERED: ONDANSETRON 4 MG/2 ML VIAL IV PRN (12:40)
[2021-02-28] MEDS ORDERED: ACETAMINOPHEN 500 MG TAB PO PRN (12:40)
--- NOTE | 2021-02-28 12:51 | P.HP ---
Certification for Inpatient Patient admitted to: Inpatient With expected LOS: >2 Midnights Patient will require the following post-hospital care: None Practitioner: I am a practitioner with admitting privileges, knowledge of patient current condition, hospital course, and medical plan of care. Services: Services provided to patient in accordance with Admission requirements found in Title 42 Section 412.3 of the Code of Federal Regulations <MeredithDavidsaarhi Quiñones - Last Filed: 02/28/21 22:16> Patient History Date of Service: 02/28/21 Reason for admission: Acute CVA History of Present Illness: Patient is a 61-year-old male with a past medical history significant for CVA, tonsillar cancer, hypertension, asthma, HLD who presents with complaint of facial numbness and left fingers numbness onset today. Patient reports associated signs and symptoms of left hand\fingers tingling and facial tingling. Patient denies any other signs or symptoms. Symptoms are aggravated or relieved by nothing. Patient decided to present to the hospital for medical evaluation. Home medications list reviewed: Yes - Past Medical/Surgical History Diabetic: No -: Asthma -: Tonsil CA -: chemo and radiation_ Nov - January 2016 -: Left Knee sx torn MCL -: Left Knee sx repair -: Rt knee Sx -: left knee sx scar tissue removel and bone spur -: Left elbow sx -: Rt Rotator cuff sx - Family History Father -: Heart disease, Hypertension, Cancer Notes: colon ca Mother -: Lung disease Notes: dementia / Alzeimer's - Social History Smoking Status: Unknown if ever smoked Alcohol use: Yes CD- Drugs: No Caffeine use: No Place of Residence: Home <Marilu Harper - Last Filed: 02/28/21 22:16> Date of Service: 02/28/21 <Tessie Grajeda - Last Filed: 03/02/21 14:27> Allergies No Known Allergies Allergy (Unverified 12/21/15 10:12) Home Medications: Aspirin Enteric Coated [Ecotrin*] 325 mg PO DAILY #90 tab 06/21/16 Budesonide/Formoterol Fumarate [Symbicort 160-4.5 Mcg Inhaler] 2 puff IH DAILY 02/28/21 Levothyroxine [Synthroid*] 1 tab PO DAILY 02/28/21 Atorvastatin Calcium [Lipitor] 80 mg PO BEDTIME #30 tab 03/02/21 Clopidogrel Bisulfate [Plavix*] 75 mg PO DAILY #30 tablet 03/02/21 lisinopriL [Prinivil*] 20 mg PO DAILY #30 tab 03/02/21 Review of Systems General: Unremarkable Eyes: Unremarkable Respiratory: Unremarkable Cardiovascular: Unremarkable Gastrointestinal: Unremarkable Genitourinary: Unremarkable Musculoskeletal: Unremarkable Integumentary: Unremarkable Neurological: Numbness Lymphatics: Unremarkable <Marilu Harper - Last Filed: 02/28/21 22:16> Physical Examination - Physical Exam General: Alert, In no apparent distress, Oriented x3 HEENT: Atraumatic, PERRLA, Mucous membr. moist/pink, EOMI, Sclerae nonicteric Neck: Supple, 2+ carotid pulse no bruit, No LAD, Without JVD or thyroid abnormality Respiratory: Clear to auscultation bilaterally, Normal air movement Cardiovascular: Regular rate/rhythm, Normal S1 S2 Capillary refill: <2 Seconds Gastrointestinal: Normal bowel sounds, No tenderness Musculoskeletal: No clubbing, No tenderness Integumentary: No rashes, No breakdown Neurological: Normal gait, Normal speech, Normal strength at 5/5 x4 extr, Normal tone, Normal affect, Other (Facial\left fingers Numbness\tingling ) Lymphatics: No axilla or inguinal lymphadenopathy - Studies Laboratory Data (last 24 hrs) 02/28/21 11:10: PT 9.9, INR 0.86 02/28/21 11:10: WBC 8.00, Hgb 14.0, Hct 42.4, Plt Count 248 <Marilu Harper - Last Filed: 02/28/21 22:16> Assessment and Plan - Plan --Acute CVA. MRI brain indicates several punctate nonhemorrhagic foci of acute infarction in the right frontal and parietal lobes in the distribution of the right middle cerebral artery. Patient had TPA in the ER. Neurology consulted. CTA head\neck and carotid doppler pending. Patient reports partial resolution of symptoms. We will await further recommendation from neurologist. --Hypertension. Will allow for permissive hypertension. Blood pressure currently stable. We will continue to monitor BP. --Asthma. Stable. Continue home medications. --History of CVA. We will hold off on aspirin or any other blood thinners due to TPA been administered in the ER. Will await further recommendation from neurologist. --History of tonsillar cancer. Status post chemotherapy and radiation- Nov - January 2016. Current status unknown. Continue Supportive care. --HLD. Continue statin. --Hypothyroidism. Continue Synthroid. --DVT prophylaxis with SCDs. Discharge Plan: Home Plan to discharge in: 48 Hours - Advance Directives Does patient have a Living Will: No Does patient have a Durable POA for Healthcare: No - Code Status/Comfort Care Code Status Assessed: Yes Code Status: Full Code Critical Care: No <Marilu Harper - Last Filed: 02/28/21 22:16> Date of Service: 02/28/21 Patient will need aggressive stroke intervention. Will continue anti-platelet therapy along with statin therapy. Patient will need lipid profile as well. Patient will get DVT prophylaxis along with physical therapy and speech therapy. I have spoken to patient's neurologist Dr. Long in he will come by and see the patient. Workup for possible embolic phenomenon. <Tessie Grajeda - Last Filed: 03/02/21 14:27>
[2021-02-28 13:04] LABS: ALT/SGPT 32 U/L (12-78); AST/SGOT 29 U/L (15-37); Alkaline Phosphatase 45 U/L (45-117); BUN Blood Urea Nitrogen 15 mg/dL (7-18); Bicarbonate 28 mmol/L (21-32); Bilirubin Direct < 0.1 mg/dL (0-0.2); Bilirubin Total 0.4 mg/dL (0.2-1.0); C-Reactive Protein < 2.90 mg/L (<3.00); Glucose Level 89 mg/dL (74-106); Magnesium 1.9 mg/dL (1.8-2.4); NT PRO-BNP 46 pg/mL (<125); Potassium 5.1 mmol/L (3.5-5.1); Protein, Total 7.3 g/dL (6.4-8.2); Sodium Level 138 mmol/L (136-145); Troponin (Emerg Dept Use Only) < 0.02 ng/mL (0.0-0.045)
[2021-02-28 13:48] VITALS: BMI 22.5
--- NOTE | 2021-02-28 14:07 | RAD REPORT ---
EXAM DESCRIPTION: Chong Angio02/28/2021 1:49 pm CLINICAL HISTORY: Numbness COMPARISON: None TECHNIQUE: 50 cc Isovue 370 was administered intravenously. 3D MIP reconstruction performed All CT scans are performed using dose optimization technique as appropriate and may include automated exposure control or mA/KV adjustment according to patient size. FINDINGS: There is a segment of poor opacification of proximal right internal carotid artery. Mild plaque is visualized within common, internal carotid and external carotid arteries bilaterally. The right internal carotid artery is tortuous The right vertebral artery is dominant. The left vertebral artery is very small. IMPRESSION: Segment of poor opacification of the proximal right internal carotid artery. I suspect t his is secondary to swallowing artifact rather than pathology. This should be confirmed with carotid ultrasound. The left vertebral artery is very small. This could be secondary to it being either very hypoplastic or a chronic dissection. An acute dissection is not suspected NASCET criteria used. Mild 0-49% stenosis Moderate 50-69% stenosis Severe 70-99% stenosis
--- NOTE | 2021-02-28 14:09 | RAD REPORT ---
EXAM DESCRIPTION: CTHead angio02/28/2021 1:49 pm CLINICAL HISTORY: Numbness COMPARISON: None TECHNIQUE: CT angiogram of the head was obtained. 3D MIPS reconstruction performed. All CT scans are performed using dose optimization technique as appropriate and may include automated exposure control or mA/KV adjustment according to patient size. FINDINGS: The basilar, internal carotid, anterior cerebral, middle cerebral and posterior cerebral a rteries are normal caliber. An aneurysm is not seen. A significant stenosis is not noted. IMPRESSION: Unremarkable CT angiogram head.
--- NOTE | 2021-02-28 14:46 | RAD REPORT ---
EXAM DESCRIPTION: USCarotid Artery Bilateral02/28/2021 1:54 pm CLINICAL HISTORY: Numbness COMPARISON: CT angiogram neck FINDINGS: The velocity of the right internal carotid artery equals 79 cm/sec. The right ICA/CCA rati o .8. Flow is present throughout proximal right internal carotid artery The velocity of the left internal carotid artery equals 106 cm/sec. The left ICA/CCA ratio 1. Mild plaque is present within the carotid arteries. Right vertebral artery is dominant. Left vertebral artery is not seen IMPRESSION: Mild plaque within the carotid arteries without evidence of a hemodynamically significan t stenosis Left vertebral artery is not seen which could be secondary to it being very hypoplastic or chronic di ssection NASCET criteria used. Mild 0-49% stenosis Moderate 50-69% stenosis Severe 70-99% stenosis
[2021-02-28] MEDS: CLOPIDOGREL 75 MG TABLET PO SCH (16:00)
[2021-02-28] MEDS: ASPIRIN EC 81 MG TAB PO SCH (16:00)
[2021-02-28] MEDS: ENOXAPARIN 40 MG/0.4 ML SQ SCH (17:00)
[2021-02-28] MEDS ORDERED: CLOPIDOGREL 75 MG TABLET ONE (18:01)
[2021-02-28] MEDS: ATORVASTATIN 80 MG TAB PO SCH (20:24)
[2021-02-28] MEDS ORDERED: ATORVASTATIN 20 MG TAB ONE (20:40)
[2021-02-28 23:21] LABS: Urine Appearance CLEAR (Clear); Urine Bilirubin NEGATIVE (Negative); Urine Blood NEGATIVE (Negative); Urine Color YELLOW (Yellow); Urine Glucose 1+ (Negative); Urine Protein NEGATIVE (Negative); Urine Urobilinogen 0.2 mg/dL (0.2-1.0)
[2021-02-28 23:47] LABS: Urine Microscopic Reflex NO UMIC
[2021-03-01 05:56] LABS: Absolute Lymphocytes (CBC) 0.9 K/uL (0.7-4.9); Basophils % 0.5 % (0-1.3); Hematocrit 39.4 % (39.6-49.0); Lymphocytes % 9.5 % (15.3-44.8); MPV 8.8 fL (7.6-11.3); RBC Red Blood Cell Count 4.38 M/uL (4.33-5.43)
[2021-03-01] MEDS: CLOPIDOGREL 75 MG TABLET PO SCH (08:40)
[2021-03-01] MEDS: ASPIRIN EC 81 MG TAB PO SCH (08:40)
[2021-03-01] MEDS ORDERED: ASPIRIN EC 81 MG TAB PO ONE (08:47)
[2021-03-01] MEDS ORDERED: CLOPIDOGREL 75 MG TABLET ONE (08:47)
[2021-03-01] MEDS: ENOXAPARIN 40 MG/0.4 ML SQ SCH (16:11)
[2021-03-01] MEDS ORDERED: ENOXAPARIN 40 MG/0.4 ML SQ ONE (16:27)
[2021-03-01] MEDS: ATORVASTATIN 80 MG TAB PO SCH (22:41)
--- NOTE | 2021-03-02 01:11 | CON ---
Date of Consultation: 03/01/2021 Reason: Stroke. History: A 61-year-old gentleman, known to myself with history of prior posterior fossa stroke, hist ory of cervical radiculopathy and cervical spine stenosis with chronic/intermittent left arm paresthe erin. He was in his usual state of health until yesterday. He was at work and his boss sent him tracey rasta because he did not look right. He got to home. He was with his . The patient normally is jennifer y active with regard to his job, a very physically demanding job, and he was taken and not iced abrupt onset of left arm paresthesias, arm felt cold. He had a little bit of chest discomfort w ith it. Then he had left facial and tongue numbness. They called the office because they wanted to be seen, but they were directed instead to the emergency department for evaluation. Evaluation revea led really a normal NIHSS score other than questionably the paresthesias in the face and the hand. Miguel magdaleno subsequently did have a brain MRI as he was within the tPA window, which demonstrated multiple punc valerio ischemic lesions in right MCA distribution consistent with embolic phenomenon. The patient rece ived tPA. He actually feels better today. He does not have any symptoms. His statin has been incre ased to 80. He is on dual anti-platelet therapy presently. He is on KARY inhibitor, lisinopril. He had an echo that is pending. Consultation was requested. Past Medical History: Prior stroke, hypertension, hyperlipidemia, hypothyroidism, cervical radiculop athy. Allergies: NONE. Medications: Aspirin 162, Lipitor 80, Lovenox. Currently, levothyroxine, lisinopril 20, Plavix 75. Social History: . Normally independent with activities of daily living. Family History: Noncontributory. Review of Systems: General: Good health. Eyes: Denies, although he did have a little bit of tunnel vision when the episode first occurred. Ears, Nose, Throat: No dysarthria. No dysphagia. Cardiovascular: Hypertension. Pulmonary: Negative. GI: Negative. : Negative. Musculoskeletal: As noted. Neurologic: As noted. Psychiatric: Negative. Endocrine: Hypothyroidism. Physical Examination: Vital Signs: 98.1, 76, 16, 159/82. General: He is a pleasant gentleman lying in bed, in no distress. Awake, alert, oriented to time, p erson, place, situation. Heart: Sinus rhythm. No carotid bruits. Lungs: Clear. Abdomen: Soft. Bowel sounds present. HEENT: Pupils equal, round, reactive. Ocular motion full without nystagmus. Visual pandey full to confrontation bilaterally. Facial strength and sensation are normal. Tongue protrudes evenly. Soft palate elevates symmetrically bilaterally. Extremities: Strength is full. No drift. Sensation is intact. No cortical extinction to double si multaneous stimulation. Reflexes are 1-2/4. Toes are downgoing on the right and upgoing on the left . Cerebellar exam demonstrates no ataxia. Pertinent Labs: MRI as noted. Sedimentation rate was 1, white count 9, hemoglobin 13.1. PT, PTT no rmal. Electrolytes normal. LDL 64, HDL 78. COVID negative. Impression: Acute ischemic stroke status post tPA. Stroke scale presently 0. Plan: Repeat CT scan of the brain in the morning. Put the patient on telemetry. Check EKG in the [facility]. We will follow up on the echo. The event certainly is concerning for either an arrhythmia o r artery to artery embolic phenomenon. The echo was normal and may be difficult to justify systemic anticoagulation with the medication like Xarelto or Eliquis given that it is normal, he wo uld benefit from placement of a long-term cardiac monitoring device like with his cardiolo gist. He cannot go back to work any time soon. He will need to be off work for at least a week. Hi s job is just simply too demanding physically for him to return to work so soon after a stroke. We w ill see him in the office next week and make a determination for certain, but I would think he probab ly would not be able to be safely discharged to return to work without restrictions until probably or on Saturday the of this month. Thank you for the consult. We will continue to follow with you. ORION Voice ID: [id number] Report ID: [id number]
[2021-03-02] MEDS ORDERED: LEVOTHYROXINE SOD 0.05 MG TABLET PO SCH (06:30)
--- NOTE | 2021-03-02 07:25 | EKG ---
Test Date: 2021-02-28 Test Time: 11:11:20 Strike Operations Officer: KATE MEASUREMENT RESULTS: Intervals: Rate: 77 NH: 156 QRSD: 110 QT: 350 QTc: 396 [place]: P: 69 NH: 156 QRS: 74 T: 51 INTERPRETIVE STATEMENTS: Normal sinus rhythm Normal ECG Compared to ECG 10/29/2018 20:17:07 No significant changes Electronically Signed On 03-02-21 07:18:51 CDT by Kevin Hernandez
[2021-03-02] MEDS: ASPIRIN EC 81 MG TAB PO SCH (07:51)
[2021-03-02] MEDS: CLOPIDOGREL 75 MG TABLET PO SCH (07:52)
--- NOTE | 2021-03-02 07:54 | ECHO ---
HEIGHT: 5 ft 8 in WEIGHT: 148 lb 0 oz DATE OF STUDY: 03/01/[address]: Raul Pandey MD 2-DIMENSIONAL: YES M.MODE: YES DOPPLER: YES COLOR FLOW: YES TDS: PORTABLE: DEFINITY: BUBBLE STUDY: DIAGNOSIS: CEREBRAL VASCULAR ACCIDENT CARDIAC HISTORY: CATHERIZATION: NO SURGERY: NO PROSTHETIC VALVE: NO PACEMAKER: NO MEASUREMENTS (cm) DIASTOLIC (NORMALS) SYSTOLIC (NORMALS) IVSd 1.0 (0.6-1.2) LA Diam 2.2 (1.9-4.0) LVEF 52% LVIDd 4.2 (3.5-5.7) LVIDs 3.1 (2.0-3.5) %FS 26% LVPWd 1.1 (0.6-1.2) Ao Diam 3.1 (2.0-3.7) 2 DIMENSIONAL ASSESSMENT: RIGHT ATRIUM: NORMAL LEFT ATRIUM: NORMAL RIGHT VENTRICLE: NORMAL LEFT VENTRICLE: NORMAL TRICUSPID VALVE: NORMAL MITRAL VALVE: NORMAL PULMONIC VALVE: NORMAL AORTIC VALVE: NORMAL PERICARDIAL EFFUSION: NONE AORTIC ROOT: NORMAL LEFT VENTRICULAR WALL MOTION: NORMAL DOPPLER/COLOR FLOW: NORMAL COMMENTS: NORMAL 2-DIMENSIONAL ECHOCARDIOGRAM WITH DOPPLER. NO THROMBUS. NO VEGETATION. TECHNOLOGIST: ARLYN CURIEL
[2021-03-02] MEDS ORDERED: Budesonide/Formoterol Fumarate [Symbicort 160-4.5 Mcg Inhaler] 10.2 GM IH SCH (09:00)
[2021-03-02] MEDS ORDERED: lisinopriL 20 MG TAB PO SCH (09:00)
--- NOTE | 2021-03-02 09:26 | RAD REPORT ---
EXAM DESCRIPTION: CT - Head Brain Wo Cont - 03/02/2021 9:05 am CLINICAL HISTORY: cva; s/p tpa Headache, drowsiness COMPARISON: Head angio dated 02/28/2021; Ct Stroke Brain Wo Cont dated 02/28/2021; Neck Angio dated 2020; Brain Wo Cont dated 02/28/2021 TECHNIQUE: All CT scans are performed using dose optimization technique as appropriate and may inclu de automated exposure control or mA/KV adjustment according to patient size. FINDINGS: No intracranial hemorrhage, hydrocephalus or extra-axial fluid collection.No areas of brai n edema or evidence of midline shift. The paranasal sinuses and mastoids are clear. The calvarium is intact. IMPRESSION: No acute intracranial abnormality.
[2021-03-02 10:25] VITALS: O2SAT 98
[2021-03-02 12:33] VITALS: BP 142/79; TEMP 98.1
--- NOTE | 2021-03-02 14:31 | P.PN ---
Subjective Date of Service: 03/01/21 Patient MRI revealed acute infarct. Look to be in the right middle cerebral artery territory. Carotid Doppler negative. CT scan repeat pending. Appreciate Neurology input Review of Systems 10-point ROS is otherwise unremarkable Physical Examination - Vital Signs Temperature: 98.1 F Blood Pressure: 142/79 Pulse: 80 Respirations: 16 Pulse Ox (%): 97 - Physical Exam General: Alert, In no apparent distress, Oriented x3 HEENT: Atraumatic, PERRLA, EOMI Neck: Supple, JVD not distended Respiratory: Clear to auscultation bilaterally, Normal air movement Cardiovascular: Regular rate/rhythm, Normal S1 S2 Gastrointestinal: Normal bowel sounds, No tenderness Musculoskeletal: No tenderness Integumentary: No rashes Neurological: Normal speech, Normal tone, Normal affect Lymphatics: No axilla or inguinal lymphadenopathy - Studies Medications List Reviewed: Yes Assessment & Plan - Plan Plan: 1. Continue with anti-platelet therapy 2. Continue with statin therapy 3. Embolic phenomenon workup pending 4. Cardiology follow-up 4 monitoring for arrhythmia 5. Neurology consultation appreciated 6. Repeat CT scan pending 7. GI and DVT prophylaxis Discharge Plan: Home Plan to discharge in: Greater than 2 days - Advance Directives Does patient have a Living Will: No Does patient have a Durable POA for Healthcare: No - Code Status/Comfort Care Code Status: Full Code Critical Care: No Time Spent Managing PTS Care (In Minutes): 35
--- NOTE | 2021-03-02 14:34 | P.DS ---
Discharge Date: 03/02/21 Disposition: ROUTINE DISCHARGE Discharge Condition: GOOD Reason for Admission: Acute CVA Consultations: Neurology Brief History of Present Illness: Patient is a 61-year-old gentleman who came to the hospital with numbness on the left side. Patient has a history of cervical radiculopathy and was not sure if spinal issues. Patient was started on anti-platelet therapy and an MRI revealed patient had an acute infarct. Patient was admitted to the hospital for further evaluation. Hospital Course: Patient was started on anti-platelet therapy along with statin therapy. Arrhythmias were not noted on telemetry. Patient will need to follow with a Holter monitor or an event monitor to monitor for cardiac dysrhythmia. Continue with outpatient neurology follow-up. Return to the ER if symptoms worsen. Vital Signs/Physical Exam: Temp Pulse Resp BP Pulse Ox 98.1 F 80 16 142/79 H 97 03/02/21 14:31 03/02/21 14:31 03/02/21 14:31 03/02/21 14:31 03/02/21 14:31 General: Alert, In no apparent distress, Oriented x3 Laboratory Data at Discharge: WBC 9.00 K/uL (4.3-10.9) 03/01/21 05:40 Hgb 13.1 g/dL (13.6-17.9) L 03/01/21 05:40 Hct 39.4 % (39.6-49.0) L 03/01/21 05:40 Plt Count 219 K/uL (152-406) 03/01/21 05:40 PT 9.9 SECONDS (9.5-12.5) 02/28/21 11:10 INR 0.86 02/28/21 11:10 APTT 26.7 SECONDS (24.3-36.9) 03/01/21 05:40 Sodium 139 mmol/L (136-145) 03/01/21 05:40 Potassium 4.0 mmol/L (3.5-5.1) 03/01/21 05:40 BUN 13 mg/dL (7-18) 03/01/21 05:40 Creatinine 1.04 mg/dL (0.55-1.3) 03/01/21 05:40 Glucose 90 mg/dL (74-106) 03/01/21 05:40 Magnesium 1.9 mg/dL (1.8-2.4) D 02/28/21 11:10 Total Bilirubin 0.4 mg/dL (0.2-1.0) 02/28/21 11:10 AST 29 U/L (15-37) 02/28/21 11:10 ALT 32 U/L (12-78) 02/28/21 11:10 Alkaline Phosphatase 45 U/L (45-117) 02/28/21 11:10 Troponin I Cancelled 02/28/21 12:42 Triglycerides 115 mg/dL (<150) 03/01/21 05:40 Cholesterol 165 mg/dL (<200) 03/01/21 05:40 HDL Cholesterol 78 mg/dL (40-60) H 03/01/21 05:40 Cholesterol/HDL Ratio 2.12 03/01/21 05:40 Home Medications: RX: Aspirin Enteric Coated [Ecotrin*] 325 mg PO DAILY #90 tab 06/21/16 RX: Budesonide/Formoterol Fumarate [Symbicort 160-4.5 Mcg Inhaler] 2 puff IH DAILY 02/28/21 RX: Levothyroxine [Synthroid*] 1 tab PO DAILY 02/28/21 RX: Atorvastatin Calcium [Lipitor] 80 mg PO BEDTIME #30 tab 03/02/21 RX: Clopidogrel Bisulfate [Plavix*] 75 mg PO DAILY #30 tablet 03/02/21 RX: lisinopriL [Prinivil*] 20 mg PO DAILY #30 tab 03/02/21 New Medications: RX: Atorvastatin Calcium [Lipitor] 80 mg PO BEDTIME #30 tab RX: Clopidogrel Bisulfate [Plavix*] 75 mg PO DAILY #30 tablet RX: lisinopriL [Prinivil*] 20 mg PO DAILY #30 tab Physician Discharge Instructions: OK TO DC IV AND DC HOME FOLLOW-UP WITH PRIMARY CARE PROVIDER IN 1-2 WEEKS FOLLOW-UP WITH NEUROLOGY IN 1 week Follow-up with Cardiology and 1-2 weeks for event monitor RETURN TO THE ER IF symptoms worsen CALL or TEXT DR. JOSEPH AT [phone] IF ANY QUESTIONS REGARDING HOSPITAL STAY. PLEASE CALL THE FLOOR AT [phone] IF ANY MEDICATION OR NURSING QUESTIONS. Diet: AHA Activity: Fall precautions Followup: Asad Long MD [ACTIVE - CAN ADMIT] - 1 Week (neurologist- call to schedule an appointment ) Quintin Kessler MD [Primary Care Provider] - 1-2 Weeks (PCP- call to schedule an appointment ) Time spent managing pt's care (in minutes): 35
--- NOTE | 2021-03-03 07:51 | EKG ---
Test Date: 2021-03-02 Test Time: 09:15:26 Cushion Worker: BRITTON MEASUREMENT RESULTS: Intervals: Rate: 70 DE: 154 QRSD: 100 QT: 380 QTc: 410 [place]: P: 69 DE: 154 QRS: 75 T: 65 INTERPRETIVE STATEMENTS: Normal sinus rhythm Normal ECG Compared to ECG 02/28/2021 11:11:20 No significant changes Electronically Signed On 03-03-21 07:48:28 CDT by Kevin Hernandez
== END 2021-03-02 16:05 | disposition home or self-care (01) | DRG 63 ==
LOC: ER 10:47 → ERHOLD 12:33 → 4TH 03-01 19:55
PROVIDERS: ADMIT Hospitalist; ATTEND Hospitalist
DX: I63.9 Cerebral infarction, unspecified (principal); E78.5 Hyperlipidemia, unspecified; J45.909 Unspecified asthma, uncomplicated; E03.9 Hypothyroidism, unspecified; I49.9 Cardiac arrhythmia, unspecified; I10 Essential (primary) hypertension; R20.0 Anesthesia of skin; R29.700 NIHSS score 0; Z79.82 Long term (current) use of aspirin; Z79.890 Hormone replacement therapy; Z79.51 Long term (current) use of inhaled steroids; Z79.899 Other long term (current) drug therapy; Z86.73 Personal history of transient ischemic attack (TIA), and cerebral infarction without residual deficits; Z79.02 Long term (current) use of antithrombotics/antiplatelets; Z20.822 Contact with and (suspected) exposure to COVID-19
CPT/HCPCS: 36415; 70450; 70496; 70498; 70551; 71045; 80048; 80061; 80076; 81003; 82947; 83735; 83880; 84484; 85025; 85610; 85652; 85730; 86140; 92610; 92977; 93005; 93306; 93880; 96365; 97161; 99285; J1650; J2997; J7030; J7050; Q9967; U0003

== ENCOUNTER 2023-03-24 09:20 | Emergency (ER) | payer BC ==
--- OUTSIDE RECORDS SUMMARY | 2023-03-24 09:27 | XMS REPORT | Continuity of Care Document ---
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 of tablet 00:00: MOUTH [place] 00 EVERY DAY [facility] ATORVASTA 0 Yes [id number] TAKE 1 [facility] N 80 mg 8-03 TABLET BY ity of tablet 00:00: MOUTH [place] 00 EVERY DAY [facility] ATORVASTA 0 Yes [id number] TAKE 1 [facility] N 80 mg 8-03 TABLET BY ity of tablet 00:00: MOUTH [place] 00 EVERY DAY [facility] ATORVASTA 0 Yes [id number] TAKE 1 [facility] N 80 mg 8-03 TABLET BY ity of tablet 00:00: MOUTH [place] 00 EVERY DAY [facility] ATORVASTA 0 Yes [id number] TAKE 1 [facility] N 80 mg 8-03 TABLET BY ity of tablet 00:00: MOUTH [place] 00 EVERY DAY [facility] ATORVASTA 0 Yes [id number] TAKE 1 [facility] N 80 mg 8-03 TABLET BY ity of tablet 00:00: MOUTH [place] 00 EVERY DAY [facility] ATORVASTATI 0 Yes [id number] TAKE 1 [facility] N 80 mg 8-03 TABLET BY ity of tablet 00:00: MOUTH [place] 00 EVERY DAY [facility] ATORVASTA 0 Yes [id number] TAKE 1 [facility] N 80 mg 8-03 TABLET BY ity of tablet 00:00: MOUTH [place] 00 EVERY DAY [facility] ATORVASTA 0 Yes [id number] TAKE 1 [facility] N 80 mg 8-03 TABLET BY ity of tablet 00:00: MOUTH [place] 00 EVERY DAY [facility] ATORVASTATI 0 Yes [id number] TAKE 1 [facility] N 80 mg 8-03 TABLET BY ity of tablet 00:00: MOUTH [place] 00 EVERY DAY [facility] ATORVASTATI 0 Yes [id number] TAKE 1 [facility] N 80 mg 8-03 TABLET BY ity of tablet 00:00: MOUTH [place] 00 EVERY DAY [facility] ATORVASTATI 0 Yes [id number] TAKE 1 [facility] N 80 mg 8-03 TABLET BY ity of tablet 00:00: MOUTH [place] 00 EVERY DAY [facility] ATORVASTATI 0 3- No [id number] TAKE 1 [facility] N 80 mg 8-03 02-02 TABLET BY ity of tablet 00:00: 00:00 MOUTH [place] 00 :00 EVERY DAY Medical [place] LEVOTHYROXI Yes [id number] TAKE 1 [facility] NE 50 mcg 7-05 TABLET BY ity o f tablet 00:00: MOUTH [place] 00 EVERY DAY Medical IN THE [facility] LEVOTHYROXI Yes [id number] TAKE 1 [facility] NE 50 mcg 7-05 TABLET BY ity o f tablet 00:00: MOUTH [place] 00 EVERY DAY Medical IN THE [facility] LEVOTHYROXI Yes [id number] TAKE 1 [facility] NE 50 mcg 7-05 TABLET BY ity o f tablet 00:00: MOUTH [place] 00 EVERY DAY Medical IN THE [facility] LEVOTHYROXI Yes [id number] TAKE 1 [facility] NE 50 mcg 7-05 TABLET BY ity o f tablet 00:00: MOUTH [place] 00 EVERY DAY Medical IN THE [facility] LEVOTHYROXI Yes [id number] TAKE 1 [facility] NE 50 mcg 7-05 TABLET BY ity o f tablet 00:00: MOUTH [place] 00 EVERY DAY Medical IN THE [facility] LEVOTHYROXI Yes [id number] TAKE 1 [facility] NE 50 mcg 7-05 TABLET BY ity o f tablet 00:00: MOUTH [place] 00 EVERY DAY Medical IN THE [facility] LEVOTHYROXI Yes [id number] TAKE 1 [facility] 50 mcg 7-05 TABLET BY ity o f tablet 00:00: MOUTH [place] 00 EVERY DAY Medical IN THE [facility] LEVOTHYROXI Yes [id number] TAKE 1 [facility] NE 50 mcg 7-05 TABLET BY ity o f tablet 00:00: MOUTH [place] 00 EVERY DAY Medical IN THE [facility] LEVOTHYROXI Yes [id number] TAKE 1 [facility] NE 50 mcg 7-05 TABLET BY ity o f tablet 00:00: MOUTH [place] 00 EVERY DAY Medical IN THE [facility] LEVOTHYROXI Yes [id number] TAKE 1 [facility] NE 50 mcg 7-05 TABLET BY ity o f tablet 00:00: MOUTH [place] 00 EVERY DAY Medical IN THE [facility] LEVOTHYROXI Yes [id number] TAKE 1 [facility] NE 50 mcg 7-05 TABLET BY ity o f tablet 00:00: MOUTH [place] 00 EVERY DAY Medical IN THE [facility] LEVOTHYROXI 2022-0 Yes [id number] TAKE 1 [facility] NE 50 mcg 7-05 TABLET BY ity o f tablet 00:00: MOUTH [place] 00 EVERY DAY Medical IN THE [place] MORNING LEVOTHYROXI 2021-0 Yes [id number] TAKE 1 [facility] NE 50 mcg 7-05 TABLET BY ity o f tablet 00:00: MOUTH [place] 00 EVERY DAY Medical IN THE [place] MORNING LEVOTHYROXI 2021-0 Yes [id number] TAKE 1 [facility] 50 mcg 7-05 TABLET BY ity o f tablet 00:00: MOUTH [place] 00 EVERY DAY Medical IN THE [place] MORNING LEVOTHYROXI 2021-0 Yes [id number] TAKE 1 [facility] 50 mcg 7-05 TABLET BY ity o f tablet 00:00: MOUTH [place] 00 EVERY DAY Medical IN THE [place] MORNING LEVOTHYROXI 2021-0 2023- No [id number] TAKE 1 [facility] 50 mcg 7-05 - TABLET BY ity of tablet 00:00: 00:00 MOUTH [place] 00 :00 EVERY DAY Medical IN THE [place] MORNING CLOPIDOGREL 2021-0 Yes [id number] TAKE 1 [facility] 75 mg 5-31 TABLET BY ity of tablet 00:00: MOUTH [place] 00 EVERY DAY Medical [facility] aspirin 81 2-0 Yes 81mg Take 81 mg U nivers mg EC 5-31 by mouth ity of tablet 00:00: in the [place] morning. [facility] CLOPIDOGREL 2-0 Yes [id number] TAKE 1 [facility] 75 mg 5-31 TABLET BY ity of tablet 00:00: MOUTH [place] 00 EVERY DAY [facility] aspirin 81 2-0 Yes 81mg Take 81 mg U nivers mg EC 5-31 by mouth ity of tablet 00:00: in the [place] morning. [facility] CLOPIDOGREL 2-0 Yes [id number] TAKE 1 [facility] 75 mg 5-31 TABLET BY ity of tablet 00:00: MOUTH [place] 00 EVERY DAY [facility] aspirin 81 2022-0 Yes 81mg Take 81 mg U nivers mg EC 5-31 by mouth ity of tablet 00:00: in the [place] 00 morning. [facility] CLOPIDOGREL 2022-0 Yes [id number] TAKE 1 [facility] 75 mg 5-31 TABLET BY ity of tablet 00:00: MOUTH [place] 00 EVERY DAY [facility] aspirin 81 2022-0 Yes 81mg Take 81 mg U nivers mg EC 5-31 by mouth ity of tablet 00:00: in the [place] 00 morning. [facility] CLOPIDOGREL 2022-0 Yes [id number] TAKE 1 [facility] 75 mg 5-31 TABLET BY ity of tablet 00:00: MOUTH [place] EVERY DAY [facility] aspirin 81 2022-0 Yes 81mg Take 81 mg U nivers mg EC 5-31 by mouth ity of tablet 00:00: in the [place] 00 morning. [facility] CLOPIDOGREL 2022-0 Yes [id number] TAKE 1 [facility] 75 mg 5-31 TABLET BY ity of tablet 00:00: MOUTH [place] EVERY DAY [facility] aspirin 81 2022-0 Yes 81mg Take 81 mg U nivers mg EC 5-31 by mouth ity of tablet 00:00: in the [place] morning. [facility] CLOPIDOGREL 2022-0 Yes [id number] TAKE 1 [facility] 75 mg 5-31 TABLET BY ity of tablet 00:00: MOUTH [place] EVERY DAY [facility] aspirin 81 2022-0 Yes 81mg Take 81 mg U nivers mg EC 5-31 by mouth ity of tablet 00:00: in the [place] morning. [facility] CLOPIDOGREL 2022-0 Yes [id number] TAKE 1 [facility] 75 mg 5-31 TABLET BY ity of tablet 00:00: MOUTH [place] EVERY DAY [facility] aspirin 81 2022-0 Yes 81mg Take 81 mg U nivers mg EC 5-31 by mouth ity of tablet 00:00: in the [place] 00 morning. [facility] Branch CLOPIDOGREL 2022-0 Yes [id number] TAKE 1 [facility] 75 mg 5-31 TABLET BY ity of tablet 00:00: MOUTH [place] EVERY DAY [facility] aspirin 81 2022-0 Yes 81mg Take 81 mg U nivers mg EC 5-31 by mouth ity of tablet 00:00: in the [place] morning. [facility] CLOPIDOGREL 2022-0 Yes [id number] TAKE 1 [facility] 75 mg 5-31 TABLET BY ity of tablet 00:00: MOUTH [place] EVERY DAY [facility] aspirin 81 2022-0 Yes 81mg Take 81 mg U nivers mg EC 5-31 by mouth ity of tablet 00:00: in the [place] 00 morning. [facility] aspirin 81 2022-0 Yes 81mg Take 81 mg U nivers mg EC 5-31 by mouth ity of tablet 00:00: in the [place] 00 morning. [facility] aspirin 81 2022-0 Yes 81mg Take 81 mg U nivers mg EC 5-31 by mouth ity of tablet 00:00: in the [place] 00 morning. [facility] aspirin 81 2022-0 Yes 81mg Take 81 mg U nivers mg EC 5-31 by mouth ity of tablet 00:00: in the [place] 00 morning. [facility] aspirin 81 2022-0 Yes 81mg Take 81 mg U nivers mg EC 5-31 by mouth ity of tablet 00:00: in the [place] 00 morning. [facility] aspirin 81 2022-0 Yes 81mg Take 81 mg U nivers mg EC 5-31 by mouth ity of tablet 00:00: in the [place] 00 morning. [facility] aspirin 81 2022-0 Yes 81mg Take 81 mg U nivers mg EC 5-31 by mouth ity of tablet 00:00: in the [place] 00 morning. [facility] aspirin 81 2022-0 Yes 81mg Take 81 mg U nivers mg EC 5-31 by mouth ity of tablet 00:00: in the [place] 00 morning. [facility] aspirin 81 2022-0 Yes 81mg Take 81 mg U nivers mg EC 5-31 by mouth ity of tablet 00:00: in the [place] 00 morning. [facility] aspirin 81 2022-0 Yes 81mg Take 81 mg U nivers mg EC 5-31 by mouth ity of tablet 00:00: in the [place] 00 morning. [facility] aspirin 81 2022-0 Yes 81mg Take 81 mg U nivers mg EC 5-31 by mouth ity of tablet 00:00: in the [place] 00 morning. [facility] aspirin 81 2022-0 Yes 81mg Take 81 mg U nivers mg EC 5-31 by mouth ity of tablet 00:00: in the [place] 00 morning. [facility] aspirin 81 2022-0 Yes 81mg Take 81 mg U nivers mg EC 5-31 by mouth ity of tablet 00:00: in the [place] 00 morning. [facility] aspirin 81 2022-0 Yes 81mg Take 81 mg U nivers mg EC 5-31 by mouth ity of tablet 00:00: in the [place] 00 morning. [facility] aspirin 81 2022-0 Yes 81mg Take 81 mg U nivers mg EC 5-31 by mouth ity of tablet 00:00: in the [place] 00 morning. [facility] aspirin 81 2022-0 Yes 81mg Take 81 mg U nivers mg EC 5-31 by mouth ity of tablet 00:00: in the [place] 00 morning. [facility] CLOPIDOGREL 2021-0 2021- No [id number] TAKE 1 [facility] 75 mg 5-31 11-25 TABLET BY ity of tablet 00:00: 00:00 MOUTH [place] 00 :00 EVERY DAY [facility] Branch tadalafiL 5 2021-0 Yes [id number] 5mg Take 1 [facility] mg tablet 3-29 tablet by ity o f 00:00: mouth [place] 00 daily. [facility] Branch tadalafiL 5 2021-0 Yes [id number] 5mg Take 1 [facility] mg tablet 3-29 tablet by ity o f 00:00: mouth [place] 00 daily. [facility] tadalafiL 5 2021-0 Yes [id number] 5mg Take 1 [facility] mg tablet 3-29 tablet by ity o f 00:00: mouth [place] 00 daily. [facility] tadalafiL 5 2021-0 Yes [id number] 5mg Take 1 [facility] mg tablet 3-29 tablet by ity o f 00:00: mouth [place] 00 daily. [facility] tadalafiL 5 2021-0 Yes [id number] 5mg Take 1 [facility] mg tablet 3-29 tablet by ity o f 00:00: mouth [place] 00 daily. [facility] Branch tadalafiL 5 2021-0 Yes [id number] 5mg Take 1 [facility] mg tablet 3-29 tablet by ity o f 00:00: mouth [place] 00 daily. [facility] Branch tadalafiL 5 2021-0 Yes [id number] 5mg Take 1 [facility] mg tablet 3-29 tablet by ity o f 00:00: mouth [place] 00 daily. [facility] Branch tadalafiL 5 2021-0 Yes [id number] 5mg Take 1 [facility] mg tablet 3-29 tablet by ity o f 00:00: mouth [place] 00 daily. [facility] Branch tadalafiL 5 2021-0 Yes [id number] 5mg Take 1 [facility] mg tablet 3-29 tablet by ity o f 00:00: mouth [place] 00 daily. [facility] Branch tadalafiL 5 2021-0 Yes [id number] 5mg Take 1 [facility] mg tablet 3-29 tablet by ity o f 00:00: mouth [place] 00 daily. [facility] Branch tadalafiL 5 2021-0 Yes [id number] 5mg Take 1 [facility] mg tablet 3-29 tablet by ity o f 00:00: mouth [place] 00 daily. [facility] Branch tadalafiL 5 2021-0 Yes [id number] 5mg Take 1 [facility] mg tablet 3-29 tablet by ity o f 00:00: mouth [place] 00 daily. [facility] tadalafiL 5 2021-0 Yes [id number] 5mg Take 1 [facility] mg tablet 3-29 tablet by ity o f 00:00: mouth [place] 00 daily. [facility] Branch tadalafiL 5 2021-0 Yes [id number] 5mg Take 1 [facility] mg tablet 3-29 tablet by ity o f 00:00: mouth [place] 00 daily. [facility] tadalafiL 5 2021-0 Yes [id number] 5mg Take 1 [facility] mg tablet 3-29 tablet by ity o f 00:00: mouth [place] 00 daily. [facility] tadalafiL 5 2021-0 Yes [id number] 5mg Take 1 [facility] mg tablet 3-29 tablet by ity o f 00:00: mouth [place] 00 daily. [facility] tadalafiL 5 2021-0 Yes [id number] 5mg Take 1 [facility] mg tablet 3-29 tablet by ity o f 00:00: mouth [place] 00 daily. [facility] Branch tadalafiL 5 2021-0 Yes [id number] 5mg Take 1 [facility] mg tablet 3-29 tablet by ity o f 00:00: mouth [place] 00 daily. [facility] tadalafiL 5 2021-0 Yes [id number] 5mg Take 1 [facility] mg tablet 3-29 tablet by ity o f 00:00: mouth [place] 00 daily. [facility] tadalafiL 5 2021-0 Yes [id number] 5mg Take 1 [facility] mg tablet 3-29 tablet by ity o f 00:00: mouth [place] 00 daily. [facility] tadalafiL 5 2021-0 Yes [id number] 5mg Take 1 [facility] mg tablet 3-29 tablet by ity o f 00:00: mouth [place] 00 daily. [facility] tadalafiL 5 2021-0 Yes [id number] 5mg Take 1 [facility] mg tablet 3-29 tablet by ity o f 00:00: mouth [place] 00 daily. [facility] tadalafiL 5 2021-0 Yes [id number] 5mg Take 1 [facility] mg tablet 3-29 tablet by ity o f 00:00: mouth [place] 00 daily. [facility] tadalafiL 5 2021-0 Yes [id number] 5mg Take 1 [facility] mg tablet 3-29 tablet by ity o f 00:00: mouth [place] 00 daily. [facility] tadalafiL 5 2021-0 Yes [id number] 5mg Take 1 [facility] mg tablet 3-29 tablet by ity o f 00:00: mouth [place] daily. [facility] tadalafil 5 2020-0 Yes 0 Memori a mg oral 6-25 Refill(s) l tablet 14:51: Symbicort 2020-0 Yes 0 [facility] 160/4.5 6-25 Refill(s) l inhalation 14:51: aerosol 00 with adapter lisinopril 0 Yes See Memoria 20 mg oral 6-25 Instructio l tablet 14:51: ns, 1/2 po Joelle nn 00 qd, 0 Refill(s) tadalafil 5 2020-0 Yes 0 Memori a mg oral 6-25 Refill(s) l tablet 14:51: Symbicort 0 Yes 0 [facility] 160/4.5 6-25 Refill(s) l inhalation 14:51: aerosol 00 with adapter lisinopril 2020-0 Yes See [facility] 20 mg oral 6-25 Instructio l tablet 14:51: ns, 1/2 po Joelle nn 00 qd, 0 Refill(s) tadalafil 5 2020-0 Yes 0 Memori a mg oral 6-25 Refill(s) l tablet 14:51: Symbicort 0 Yes 0 [facility] 160/4.5 6-25 Refill(s) l inhalation 14:51: aerosol 00 with adapter lisinopril 2020-0 Yes See [facility]oria 20 mg oral 6-25 Instructio l tablet 14:51: ns, 1/2 po Joelle nn 00 qd, 0 Refill(s) tadalafil 5 2020-0 Yes 0 Memori a mg oral 6-25 Refill(s) l tablet 14:51: Symbicort 2020-0 Yes 0 [facility] 160/4.5 6-25 Refill(s) l inhalation 14:51: [place] aerosol 00 with adapter lisinopril 2020-0 Yes See Memoria 20 mg oral 6-25 Instructio l tablet 14:51: ns, 1/2 po Joelle nn 00 qd, 0 Refill(s) tadalafil 5 2020-0 Yes 0 Memori a mg oral 6-25 Refill(s) l tablet 14:51: [place] 00 Symbicort 2020-0 Yes 0 Mem[facility] 160/4.5 6-25 Refill(s) l inhalation 14:51: [place] aerosol 00 with adapter lisinopril 2020-0 Yes See Memoria 20 mg oral 6-25 Instructio l tablet 14:51: ns, 1/2 po Joelle nn 00 qd, 0 Refill(s) tadalafil 5 2020-0 Yes 0 Memori a mg oral 6-25 Refill(s) l tablet 14:51: [place] 00 Symbicort 2020-0 Yes 0 [facility] 160/4.5 6-25 Refill(s) l inhalation 14:51: [place] aerosol 00 with adapter lisinopril 2020-0 Yes See [facility]oria 20 mg oral 6-25 Instructio l tablet 14:51: ns, 1/2 po Joelle nn 00 qd, 0 Refill(s) tadalafil 5 2020-0 Yes 0 Memori a mg oral 6-25 Refill(s) l tablet 14:51: [place] 00 Symbicort 2020-0 Yes 0 Mem[facility] 160/4.5 6-25 Refill(s) l inhalation 14:51: [place] aerosol 00 with adapter lisinopril 2020-0 Yes See Memoria 20 mg oral 6-25 Instructio l tablet 14:51: ns, 1/2 po Joelle nn 00 qd, 0 Refill(s) Symbicort 2020-0 Yes 0 [facility] 160/4.5 6-25 Refill(s) l inhalation 14:51: [place] aerosol 00 with adapter lisinopril 2020-0 Yes See Memoria 20 mg oral 6-25 Instructio l tablet 14:51: ns, 1/2 po Joelle nn 00 qd, 0 Refill(s) tadalafil 5 2020-0 Yes 0 Memori a mg oral 6-25 Refill(s) l tablet 14:51: [place] 00 Aspirin 81 2020-0 Yes = 1 tab, Mem oria MG Enteric 5-28 PO, Daily, l Coated 18:13: # 30 tab, Kwasi n Tablet 00 2 Refill(s), Pharmacy: [facility] [id number], 170.18, cm, 12/27/20 15:00: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, Height, 67.273, kg, 03/08/21 9:54:00 CDT, Weight Aspirin 81 2020-0 Yes = 1 tab, Mem oria MG Enteric 5-28 PO, Daily, l Coated 18:13: # 30 tab, [place] n Tablet 00 2 Refill(s), Pharmacy: [facility] [id number], 170.18, cm, 12/27/20 15:00: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, Height, 67.273, kg, 03/08/21 9:54:00 CDT, Weight Aspirin 81 202-0 Yes = 1 tab, Mem oria MG Enteric 5-28 PO, Daily, l Coated 18:13: # 30 tab, [place] n Tablet 00 2 Refill(s), Pharmacy: [facility] [id number], 170.18, cm, 12/27/20 15:00: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, Height, 67.273, kg, 03/08/21 9:54:00 CDT, Weight Aspirin 81 2020-0 Yes = 1 tab, Mem oria MG Enteric 5-28 PO, Daily, l Coated 18:13: # 30 tab, [place] n Tablet 00 2 Refill(s), Pharmacy: [facility] [id number], 170.18, cm, 12/27/20 15:00: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, Height, 67.273, kg, 03/08/21 9:54:00 CDT, Weight Aspirin 81 202-0 Yes = 1 tab, Mem oria MG Enteric 5-28 PO, Daily, l Coated 18:13: # 30 tab, [place] n Tablet 00 2 Refill(s), Pharmacy: [facility] [id number], 170.18, cm, 12/27/20 15:00: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, Height, 67.273, kg, 03/08/21 9:54:00 CDT, Weight Aspirin 81 202-0 Yes = 1 tab, Mem oria MG Enteric 5-28 PO, Daily, l Coated 18:13: # 30 tab, [place] n Tablet 00 2 Refill(s), Pharmacy: [facility] [id number], 170.18, cm, 12/27/20 15:00: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, Height, 67.273, kg, 03/08/21 9:54:00 CDT, Weight Aspirin 81 2021-0 Yes = 1 tab, Mem oria MG Enteric 5-28 PO, Daily, l Coated 18:13: # 30 tab, [place] n Tablet 00 2 Refill(s), Pharmacy: [facility] [id number], 170.18, cm, 12/27/20 15:00: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, Height, 67.273, kg, 03/08/21 9:54:00 CDT, Weight Aspirin 81 2021-0 Yes = 1 tab, Mem oria MG Enteric 5-28 PO, Daily, l Coated 18:13: # 30 tab, [place] n Tablet 00 2 Refill(s), Pharmacy: [facility] [id number], 170.18, cm, 12/27/20 15:00: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, Height, 67.273, kg, 03/08/21 9:54:00 CDT, Weight clopidogrel 2021-0 Yes 75 mg = 1 M emoria 75 MG Oral 5-13 tab, PO, l Tablet 00:38: Daily, # [place] [Plavix] 00 30 tab, 0 Refill(s), other clopidogrel 2021-0 Yes 75 mg = 1 M emoria 75 MG Oral 5-13 tab, PO, l Tablet 00:38: Daily, # [place] [Plavix] 00 30 tab, 0 Refill(s), other clopidogrel 2021-0 Yes 75 mg = 1 M emoria 75 MG Oral 5-13 tab, PO, l Tablet 00:38: Daily, # [place] [Plavix] 00 30 tab, 0 Refill(s), other clopidogrel 2021-0 Yes 75 mg = 1 M emoria 75 MG Oral 5-13 tab, PO, l Tablet 00:38: Daily, # [place] [Plavix] 00 30 tab, 0 Refill(s), other clopidogrel 2021-0 Yes 75 mg = 1 M emoria 75 MG Oral 5-13 tab, PO, l Tablet 00:38: Daily, # [place] [Plavix] 00 30 tab, 0 Refill(s), other clopidogrel 2021-0 Yes 75 mg = 1 M emoria 75 MG Oral 5-13 tab, PO, l Tablet 00:38: Daily, # [place] [Plavix] 00 30 tab, 0 Refill(s), other Plavix 75 2020-0 Yes 75 mg = 1 Mem oria mg oral 5-13 tab, PO, l tablet 00:38: Daily, # [place] 00 30 tab, 0 Refill(s), other clopidogrel 2020-0 Yes 75 mg = 1 M emoria 75 MG Oral 5-13 tab, PO, l Tablet 00:38: Daily, # [place] [Plavix] 00 30 tab, 0 Refill(s), other Plavix 75 2020-0 Yes 75 mg = 1 Mem oria mg oral 5-13 tab, PO, l tablet 00:38: Daily, # [place] 00 30 tab, 0 Refill(s), other clopidogrel 2020-0 Yes 75 mg = 1 M emoria 75 MG Oral 5-13 tab, PO, l Tablet 00:38: Daily, # [place] [Plavix] 00 30 tab, 0 Refill(s), other Plavix 75 2020-0 Yes 75 mg = 1 Mem oria mg oral 5-13 tab, PO, l tablet 00:38: Daily, # [place] 00 30 tab, 0 Refill(s), other levothyroxi Yes TAKE 1 [place] kevon ne 50 mcg 5-12 TABLET BY l (0.05 mg) 14:57: MOUTH [place] oral tablet 00 EVERY DAY IN THE MORNING levothyroxi Yes TAKE 1 [place] ke[place] ne 50 mcg 5-12 TABLET BY l (0.05 mg) 14:57: MOUTH [place] oral tablet 00 EVERY DAY IN THE MORNING levothyroxi Yes TAKE 1 [place] ne 50 mcg 5-12 TABLET BY l (0.05 mg) 14:57: MOUTH [place] oral tablet 00 EVERY DAY IN THE MORNING levothyroxi Yes TAKE 1 [place] ne 50 mcg 5-12 TABLET BY l (0.05 mg) 14:57: MOUTH [place] oral tablet 00 EVERY DAY IN THE MORNING levothyroxi Yes TAKE 1 [place] ne 50 mcg 5-12 TABLET BY l (0.05 mg) 14:57: MOUTH [place] oral tablet 00 EVERY DAY IN THE MORNING levothyroxi Yes TAKE 1 [place] ne 50 mcg 5-12 TABLET BY l (0.05 mg) 14:57: MOUTH [place] oral tablet 00 EVERY DAY IN THE MORNING levothyroxi Yes TAKE 1 [place] ne 50 mcg 5-12 TABLET BY l (0.05 mg) 14:57: MOUTH [place] oral tablet 00 EVERY DAY IN THE MORNING levothyroxi Yes TAKE 1 [facility] ke[place] ne 50 mcg 5-12 TABLET BY l (0.05 mg) 14:57: MOUTH [place] oral tablet 00 EVERY DAY IN THE MORNING Thyroxine 2019-10 Yes Daily, 0 [place] kevon 2-09 Refill(s) l 19:10: [place] Thyroxine 2019-10 Yes Daily, 0 [place] kevon 2-09 Refill(s) l 19:10: [place] Thyroxine 2019-10 Yes Daily, 0 [place] kevon 2-09 Refill(s) l 19:10: [place] Thyroxine 2019-10 Yes Daily, 0 [place] kevon 2-09 Refill(s) l 19:10: [place] Thyroxine 2019-10 Yes Daily, 0 [place] kevon 2-09 Refill(s) l 19:10: [place] Thyroxine 2019-10 Yes Daily, 0 [place] kevon 2-09 Refill(s) l 19:10: [place] Thyroxine 2019-10 Yes Daily, 0 [place] kevon 2-09 Refill(s) l 19:10: [place] Thyroxine 2019-10 Yes Daily, 0 [place] kevon 2-09 Refill(s) l 19:10: [place] gabapentin 2019-10 Yes 300 mg = 1 M emoria 300 MG Oral 2-09 cap, PO, l Capsule 17:20: Bedtime, # Herm katerina 00 30 cap, 3 Refill(s), Pharmacy: [facility] #[id number], 172.72, cm, 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, Height, 69.545, kg, 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, Weight gabapentin 2019-10 Yes 300 mg = 1 M emoria 300 MG Oral 2-09 cap, PO, l Capsule 17:20: Bedtime, # Herm katerina 00 30 cap, 3 Refill(s), Pharmacy: [facility] #[id number], 172.72, cm, 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, Height, 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, kg, 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, Weight gabapentin 2019-10 Yes 300 mg = 1 M emoria 300 MG Oral 2-09 cap, PO, l Capsule 17:20: Bedtime, # [place] katerina 00 30 cap, 3 Refill(s), Pharmacy: [facility] #[id number], 172.72, cm, 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, Height, 69.545, kg, 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, Weight gabapentin 2019-10 Yes 300 mg = 1 M emoria 300 MG Oral 2-09 cap, PO, l Capsule 17:20: Bedtime, # Herm katerina 00 30 cap, 3 Refill(s), Pharmacy: [facility] #[id number], 172.72, cm, 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, Height, 69.545, kg, 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, Weight gabapentin 2019-10 Yes 300 mg = 1 M emoria 300 MG Oral 2-09 cap, PO, l Capsule 17:20: Bedtime, # Herm katerina 00 30 cap, 3 Refill(s), Pharmacy: [facility] #[id number], 172.72, cm, 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, Height, 69.545, kg, 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, Weight gabapentin 2019-10 Yes 300 mg = 1 M emoria 300 MG Oral 2-09 cap, PO, l Capsule 17:20: Bedtime, # Herm katerina 00 30 cap, 3 Refill(s), Pharmacy: [facility] #[id number], 172.72, cm, 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, Height, 69.545, kg, 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, Weight gabapentin 2019-10 Yes 300 mg = 1 M emoria 300 mg oral 2-09 cap, PO, l capsule 17:20: Bedtime, # Herm katerina 00 30 cap, 3 Refill(s), Pharmacy: [facility] #[id number], 172.72, cm, 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, Height, 69.545, kg, 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, Weight gabapentin 2019-10 Yes 300 mg = 1 M emoria 300 MG Oral 2-09 cap, PO, l Capsule 17:20: Bedtime, # Herm katerina 00 30 cap, 3 Refill(s), Pharmacy: [facility] #[id number], 172.72, cm, 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, Height, 69.545, kg, 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, Weight gabapentin 2019-10 Yes 300 mg = 1 M emoria 300 mg oral 2-09 cap, PO, l capsule 17:20: Bedtime, # Herm katerina 00 30 cap, 3 Refill(s), Pharmacy: [facility] #[id number], 172.72, cm, 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, Height, 69.545, kg, 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, Weight gabapentin 2019-10 Yes 300 mg = 1 M emoria 300 MG Oral 2-09 cap, PO, l Capsule 17:20: Bedtime, # Herm katerina 00 30 cap, 3 Refill(s), Pharmacy: [facility] #[id number], 172.72, cm, 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, Height, 69.545, kg, 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, Weight gabapentin 2019-10 Yes 300 mg = 1 M emoria 300 mg oral 2-09 cap, PO, l capsule 17:20: Bedtime, # Herm katerina 00 30 cap, 3 Refill(s), Pharmacy: [facility] #[id number], 172.72, cm, 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, Height, 69.545, kg, 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, Weight meloxicam 2019-10 Yes 7.5 mg = 1 Me moria 7.5 mg oral 2-09 tab, PO, l tablet 17:12: Daily, 0 [place] 00 Refill(s) meloxicam 2019- Yes 7.5 mg = 1 Me moria 7.5 mg oral 2-09 tab, PO, l tablet 17:12: Daily, 0 [place] 00 Refill(s) meloxicam 2019- Yes 7.5 mg = 1 Me mor[place] 7.5 mg oral 2-09 tab, PO, l tablet 17:12: Daily, 0 [place] 00 Refill(s) meloxicam 2020-1 Yes 7.5 mg = 1 Me [place] 7.5 mg oral 2-09 tab, PO, l tablet 17:12: Daily, 0 [place] 00 Refill(s) meloxicam 2019-1 Yes 7.5 mg = 1 Me [place] 7.5 mg oral 2-09 tab, PO, l tablet 17:12: Daily, 0 [place] 00 Refill(s) meloxicam 2019-1 Yes 7.5 mg = 1 [place] 7.5 mg oral 2-09 tab, PO, l tablet 17:12: Daily, 0 [place] 00 Refill(s) meloxicam 2019-1 Yes 7.5 mg = 1 [place] 7.5 mg oral 2-09 tab, PO, l tablet 17:12: Daily, 0 [place] 00 Refill(s) meloxicam 2019-1 Yes 7.5 mg = 1 [place] 7.5 mg oral 2-09 tab, PO, l tablet 17:12: Daily, 0 [place] Refill(s) SYMBICORT 2020-0 Yes [id number] INHALE 2 Univers 160-4.5 5-18 PUFFS 2 ity of mcg/actuati 00:00: (TWO) [place] on inhaler 00 TIMES Medical DAILY. Branch SYMBICORT 2020-0 Yes [id number] INHALE 2 Univers 160-4.5 5-18 PUFFS 2 ity of mcg/actuati 00:00: (TWO) [place] on inhaler 00 TIMES Medical DAILY. Branch SYMBICORT 2020-0 Yes [id number] INHALE 2 Univers 160-4.5 5-18 PUFFS 2 ity of mcg/actuati 00:00: (TWO) [place] on inhaler 00 TIMES Medical DAILY. Branch SYMBICORT 2020-0 Yes [id number] INHALE 2 Univers 160-4.5 5-18 PUFFS 2 ity of mcg/actuati 00:00: (TWO) [place] on inhaler 00 TIMES Medical DAILY. Branch SYMBICORT 2020-0 Yes [id number] INHALE 2 Univers 160-4.5 5-18 PUFFS 2 ity of mcg/actuati 00:00: (TWO) [place] on inhaler 00 TIMES Medical DAILY. Branch SYMBICORT 2020-0 Yes [id number] INHALE 2 [facility] 160-4.5 5-18 PUFFS 2 ity of mcg/actuati 00:00: (TWO) [place] on inhaler 00 TIMES Medical DAILY. Branch SYMBICORT Yes [id number] INHALE 2 Univers 160-4.5 5-18 PUFFS 2 ity of mcg/actuati 00:00: (TWO) [place] on inhaler 00 TIMES Medical DAILY. Branch SYMBICORT Yes [id number] INHALE 2 [facility] 160-4.5 5-18 PUFFS 2 ity of mcg/actuati 00:00: (TWO) [place] on inhaler 00 TIMES Medical DAILY. Branch SYMBICORT 2021- No [id number] INHALE 2 [facility] 160-4.5 5-18 10-26 PUFFS 2 ity of mcg/actuati 00:00: 00:00 (TWO[place] :00 TIMES Medical DAILY. Branch SYMBICORT 2021- No [id number] INHALE 2 [facility] 160-4.5 5-18 10-26 PUFFS 2 ity of mcg/actuati 00:00: 00:00 (TWO[place] :00 TIMES Medical DAILY. [place] albuterol Yes [id number] 2{puff} Inhale 2 Univers (PROAIR 5-08 Puffs ity of HFA) 90 00:00: every 6 [place] mcg/actuati 00 (six) Medical on inhaler hours as Branc h needed for Wheezing or Shortness of Breath. albuterol Yes [id number] 2{puff} Inhale 2 Univers (PROAIR 5-08 Puffs ity of HFA) 90 00:00: every 6 [place] mcg/actuati 00 (six) Medical on inhaler hours as Branc h needed for Wheezing or Shortness of Breath. albuterol 2018- Yes [id number] 2{puff} Inhale 2 Univers (PROAIR 5-08 Puffs ity of HFA) 90 00:00: every 6 [place] mcg/actuati 00 (six) Medical on inhaler hours as Branc h needed for Wheezing or Shortness of Breath. albuterol Yes [id number] 2{puff} Inhale 2 Univers (PROAIR 5-08 Puffs ity of HFA) 90 00:00: every 6 [place] mcg/actuati 00 (six) Medical on inhaler hours as Branc h needed for Wheezing or Shortness of Breath. albuterol 2019- Yes [id number] 2{puff} Inhale 2 Univers (PROAIR 5-08 Puffs ity of HFA) 90 00:00: every 6 [place] mcg/actuati 00 (six) Medical on inhaler hours as Branc h needed for Wheezing or Shortness of Breath. albuterol 2018- Yes [id number] 2{puff} Inhale 2 Univers (PROAIR 5-08 Puffs ity of HFA) 90 00:00: every 6 [place] mcg/actuati 00 (six) Medical on inhaler hours as Branc h needed for Wheezing or Shortness of Breath. albuterol 2018- Yes [id number] 2{puff} Inhale 2 Univers (PROAIR 5-08 Puffs ity of HFA) 90 00:00: every 6 [place] mcg/actuati 00 (six) Medical on inhaler hours as Branc h needed for Wheezing or Shortness of Breath. albuterol 2018- Yes [id number] 2{puff} Inhale 2 Univers (PROAIR 5-08 Puffs ity of HFA) 90 00:00: every 6 [place] mcg/actuati 00 (six) Medical on inhaler hours as Branc h needed for Wheezing or Shortness of Breath. albuterol 2018- Yes [id number] 2{puff} Inhale 2 Univers (PROAIR 5-08 Puffs ity of HFA) 90 00:00: every 6 [place] mcg/actuati 00 (six) Medical on inhaler hours as Branc h needed for Wheezing or Shortness of Breath. albuterol 2018- Yes [id number] 2{puff} Inhale 2 Univers (PROAIR 5-08 Puffs ity of HFA) 90 00:00: every 6 [place] mcg/actuati 00 (six) Medical on inhaler hours as Branc h needed for Wheezing or Shortness of Breath. albuterol 2018-0 Yes [id number] 2{puff} Inhale 2 Univers (PROAIR 5-08 Puffs ity of HFA) 90 00:00: every 6 [place] mcg/actuati 00 (six) Medical on inhaler hours as Branc h needed for Wheezing or Shortness of Breath. albuterol 2019-0 Yes [id number] 2{puff} Inhale 2 Univers (PROAIR 5-08 Puffs ity of HFA) 90 00:00: every 6 [place] mcg/actuati 00 (six) Medical on inhaler hours as Branc h needed for Wheezing or Shortness of Breath. albuterol 2019-0 Yes [id number] 2{puff} Inhale 2 Univers (PROAIR 5-08 Puffs ity of HFA) 90 00:00: every 6 [place] mcg/actuati 00 (six) Medical on inhaler hours as Branc h needed for Wheezing or Shortness of Breath. albuterol 2019-0 Yes [id number] 2{puff} Inhale 2 Univers (PROAIR 5-08 Puffs ity of HFA) 90 00:00: every 6 [place] mcg/actuati 00 (six) Medical on inhaler hours as Branc h needed for Wheezing or Shortness of Breath. albuterol 2019- Yes [id number] 2{puff} Inhale 2 Univers (PROAIR 5-08 Puffs ity of HFA) 90 00:00: every 6 [place] mcg/actuati 00 (six) Medical on inhaler hours as Branc h needed for Wheezing or Shortness of Breath. albuterol 2018-0 Yes [id number] 2{puff} Inhale 2 Univers (PROAIR 5-08 Puffs ity of HFA) 90 00:00: every 6 [place] mcg/actuati 00 (six) Medical on inhaler hours as Branc h needed for Wheezing or Shortness of Breath. albuterol 2019-0 Yes [id number] 2{puff} Inhale 2 Univers (PROAIR 5-08 Puffs ity of HFA) 90 00:00: every 6 [place] mcg/actuati 00 (six) Medical on inhaler hours as Branc h needed for Wheezing or Shortness of Breath. albuterol 2019-0 Yes [id number] 2{puff} Inhale 2 Univers (PROAIR 5-08 Puffs ity of HFA) 90 00:00: every 6 [place] mcg/actuati 00 (six) Medical on inhaler hours as Branc h needed for Wheezing or Shortness of Breath. albuterol 2019-0 Yes [id number] 2{puff} Inhale 2 Univers (PROAIR 5-08 Puffs ity of HFA) 90 00:00: every 6 [place] mcg/actuati 00 (six) Medical on inhaler hours as Branc h needed for Wheezing or Shortness of Breath. albuterol Yes [id number] 2{puff} Inhale 2 Univers (PROAIR 5-08 Puffs ity of HFA) 90 00:00: every 6 [place] mcg/actuati 00 (six) Medical on inhaler hours as Branc h needed for Wheezing or Shortness of Breath. albuterol 2018- Yes [id number] 2{puff} Inhale 2 Univers (PROAIR 5-08 Puffs ity of HFA) 90 00:00: every 6 [place] mcg/actuati 00 (six) Medical on inhaler hours as Branc h needed for Wheezing or Shortness of Breath. albuterol 2018- Yes [id number] 2{puff} Inhale 2 Univers (PROAIR 5-08 Puffs ity of HFA) 90 00:00: every 6 [place] mcg/actuati 00 (six) Medical on inhaler hours as Branc h needed for Wheezing or Shortness of Breath. albuterol 2018- Yes [id number] 2{puff} Inhale 2 Univers (PROAIR 5-08 Puffs ity of HFA) 90 00:00: every 6 [place] mcg/actuati 00 (six) Medical on inhaler hours as Branc h needed for Wheezing or Shortness of Breath. albuterol 2018- Yes [id number] 2{puff} Inhale 2 Univers (PROAIR 5-08 Puffs ity of HFA) 90 00:00: every 6 [place] mcg/actuati 00 (six) Medical on inhaler hours as Branc h needed for Wheezing or Shortness of Breath. albuterol Yes [id number] 2{puff} Inhale 2 Univers (PROAIR 5-08 Puffs ity of HFA) 90 00:00: every 6 [place] mcg/actuati 00 (six) Medical on inhaler hours as Branc h needed for Wheezing or Shortness of Breath. atorvastati Yes See Memori a n 20 mg 2-01 Instructio l oral tablet 21:36: ns, 4 tab [place] 00 PO Daily, 0 Refill(s) baclofen 10 Yes 10 mg = 1 M [place] mg oral 2-01 tab, PO, l tablet 21:36: BID, PRN [place] 00 as needed for muscle spasm, 0 Refill(s) atorvastati Yes See Memori a n 20 mg 2-01 Instructio l oral tablet 21:36: ns, 4 tab [place] 00 PO Daily, 0 Refill(s) baclofen Yes 10 mg = 1 M [place] mg oral 2-01 tab, PO, l tablet 21:36: BID, PRN [place] 00 as needed for muscle spasm, 0 Refill(s) atorvastati Yes See Memori a n 20 mg 2-01 Instructio l oral tablet 21:36: ns, 4 tab [place] 00 PO Daily, 0 Refill(s) baclofen Yes 10 mg = 1 M [place] mg oral 2-01 tab, PO, l tablet 21:36: BID, PRN [place] 00 as needed for muscle spasm, 0 Refill(s) Immunizations Ordered Filled Immunization Date Status Comments [facility] Immunization Name Name Td 2022-06-29 Completed University of 00:00:00 [facility] Td 2022-06-29 Completed University of 00:00:00 [facility] Td 2022-06-29 Completed University of 00:00:00 [facility] Td 2022-06-29 Completed University of 00:00:00 [facility] Td 2022-06-29 Completed University of 00:00:00 [facility] Td 2022-06-29 Completed University of 00:00:00 [facility] Td 2022-06-29 Completed University of 00:00:00 [facility] Td 2022-06-29 Completed University of 00:00:00 [facility] Td 2022-06-29 Completed University of 00:00:00 [facility] Td 2022-06-29 Completed University of 00:00:00 [facility] Td 2022-06-29 Completed University of 00:00:00 [facility] Td 2022-06-29 Completed University of 00:00:00 [facility] Td 2022-06-29 Completed University of 00:00:00 [facility] TD, NOS 2022-06-29 Completed [facility] of 00:00:00 [place] [facility] TD, NOS 2022-06-29 Completed University of 00:00:00 [place] [facility] TD, NOS 2022-06-29 Completed University of 00:00:00 [place] [facility] TD, NOS 2022-06-29 Completed [facility] of 00:00:00 [place] [facility] TD, NOS 2022-06-29 Completed [facility] of 00:00:00 [place] [facility] TD, NOS 2022-06-29 Completed [facility] of 00:00:00 [place] [facility] TD, NOS 2022-06-29 Completed University of 00:00:00 [place] [facility] TD, NOS 2022-06-29 Completed University of 00:00:00 [place] [facility] TD, NOS 2022-06-29 Completed University of 00:00:00 [place] [facility] TD, NOS 2022-06-29 Completed University of 00:00:00 [place] [facility] TD, NOS 2022-06-29 Completed University of 00:00:00 [place] [facility] TD, NOS 2022-06-29 Completed University of 00:00:00 [facility] SARS-COV-2 COVID-19 2021-02-02 Completed Unive rsity of VACCINE - (MODERNA) 00:00:00 [facility] SARS-COV-2 COVID-19 2021-02-02 Completed Unive rsity of VACCINE - (MODERNA) 00:00:00 [facility] SARS-COV-2 COVID-19 2021-02-02 Completed Unive rsity of VACCINE - (MODERNA) 00:00:00 [facility] SARS-COV-2 COVID-19 2021-02-02 Completed Unive rsity of VACCINE - (MODERNA) 00:00:00 [facility] SARS-COV-2 COVID-19 2021-02-02 Completed Unive rsity of VACCINE - (MODERNA) 00:00:00 [facility] SARS-COV-2 COVID-19 2021-02-02 Completed Unive rsity of VACCINE - (MODERNA) 00:00:00 [facility] SARS-COV-2 COVID-19 2021-02-02 Completed Unive rsity of VACCINE - (MODERNA) 00:00:00 [facility] SARS-COV-2 COVID-19 2021-02-02 Completed Unive rsity of VACCINE - (MODERNA) 00:00:00 [facility] SARS-COV-2 COVID-19 2021-02-02 Completed Unive rsity of VACCINE - (MODERNA) 00:00:00 [facility] SARS-COV-2 COVID-19 2021-02-02 Completed Unive rsity of VACCINE - (MODERNA) 00:00:00 [facility] SARS-COV-2 COVID-19 2021-02-02 Completed Unive rsity of VACCINE - (MODERNA) 00:00:00 [facility] SARS-COV-2 COVID-19 2021-02-02 Completed Unive rsity of VACCINE - (MODERNA) 00:00:00 [facility] SARS-COV-2 COVID-19 2020-12-30 Completed Unive rsity of VACCINE - (MODERNA) 00:00:00 [facility] SARS-COV-2 COVID-19 2020-12-30 Completed Unive rsity of VACCINE - (MODERNA) 00:00:00 [facility] SARS-COV-2 COVID-19 2020-12-30 Completed Unive rsity of VACCINE - (MODERNA) 00:00:00 [facility] SARS-COV-2 COVID-19 2020-12-30 Completed Unive rsity of VACCINE - (MODERNA) 00:00:00 [facility] SARS-COV-2 COVID-19 2020-12-30 Completed Unive rsity of VACCINE - (MODERNA) 00:00:00 [facility] SARS-COV-2 COVID-19 2020-12-30 Completed Unive rsity of VACCINE - (MODERNA) 00:00:00 [facility] SARS-COV-2 COVID-19 2020-12-30 Completed Unive rsity of VACCINE - (MODERNA) 00:00:00 [facility] SARS-COV-2 COVID-19 2020-12-30 Completed Unive rsity of VACCINE - (MODERNA) 00:00:00 [facility] SARS-COV-2 COVID-19 2020-12-30 Completed Unive rsity of VACCINE - (MODERNA) 00:00:00 [facility] SARS-COV-2 COVID-19 2020-12-30 Completed Unive rsity of VACCINE - (MODERNA) 00:00:00 [facility] SARS-COV-2 COVID-19 2020-12-30 Completed Unive rsity of VACCINE - (MODERNA) 00:00:00 [facility] SARS-COV-2 COVID-19 2020-12-30 Completed Unive rsity of VACCINE - (MODERNA) 00:00:00 [facility] TDAP 2018-10-28 Completed University of 00:00:00 [facility] TDAP 2018-10-28 Completed University of 00:00:00 [facility] TDAP 2018-10-28 Completed University of 00:00:00 [facility] TDAP 2018-10-28 Completed University of 00:00:00 [facility] TDAP 2018-10-28 Completed University of 00:00:00 [facility] TDAP 2018-10-28 Completed University of 00:00:00 [facility] TDAP 2018-10-28 Completed University of 00:00:00 [facility] TDAP 2018-10-28 Completed University of 00:00:00 [facility] TDAP 2018-10-28 Completed University of 00:00:00 [facility] TDAP 2018-10-28 Completed University of 00:00:00 [facility] TDAP 2018-10-28 Completed University of 00:00:00 [facility] TDAP 2018-10-28 Completed University of 00:00:00 [facility] TDAP 2018-10-28 Completed University of 00:00:00 [facility] TDAP 2018-10-28 Completed University of 00:00:00 [facility] TDAP 2018-10-28 Completed University of 00:00:00 [facility] TDAP 2018-10-28 Completed University of 00:00:00 [facility] TDAP 2018-10-28 Completed University of 00:00:00 [facility] TDAP 2018-10-28 Completed University of 00:00:00 [facility] TDAP 2018-10-28 Completed University of 00:00:00 [facility] TDAP 2018-10-28 Completed University of 00:00:00 [facility] TDAP 2018-10-28 Completed University of 00:00:00 [facility] TDAP 2018-10-28 Completed University of 00:00:00 [facility] TDAP 2018-10-28 Completed University of 00:00:00 [facility] TDAP 2018-10-28 Completed University of 00:00:00 [facility] TDAP 2018-10-28 Completed University of 00:00:00 [facility] Vital Signs Vital Name Observation Time Observation Value Comments Source Systolic blood 2023-02-25 12:11:00 130 mm[Hg] Univer sity of pressure [place] [facility] Diastolic blood 2023-02-25 12:11:00 70 mm[Hg] Unive rsity of pressure [facility] Heart rate 2023-02-25 12:07:00 71 /min Universi [facility] [place] [facility] Body height 2023-02-25 12:07:00 172.7 cm [facility] [place] [facility] Body weight 2023-02-25 12:07:00 66.407 kg [facility] [place] [facility] BMI 2023-02-25 12:07:00 22.26 kg/m2 Universi ty of [facility] Oxygen saturation in 2023-02-25 12:07:00 98 /min University of Arterial blood by [facility] Pulse oximetry Branch Systolic blood 2023-01-22 12:05:00 131 mm[Hg] Univer sity of pressure [facility] Diastolic blood 2023-01-22 12:05:00 87 mm[Hg] Unive rsity of pressure [facility] Heart rate 2023-01-22 12:04:00 73 /min [facility] [place] [facility] Body height 2023-01-22 12:04:00 172.7 cm [facility] [place] [facility] Body weight 2023-01-22 12:04:00 66.271 kg [facility] [place] [facility] BMI 2023-01-22 12:04:00 22.21 kg/m2 [facility] [place] [facility] Oxygen saturation in 2023-01-22 12:04:00 98 /min University of Arterial blood by [facility] Pulse oximetry Branch Systolic blood 2022-12-24 13:13:00 136 mm[Hg] Univer sity of pressure [place] [facility] Diastolic blood 2022-12-24 13:13:00 78 mm[Hg] Unive rsity of pressure [facility] Heart rate 2022-12-24 13:12:00 75 /min [facility] [place] [facility] Body height 2022-12-24 13:12:00 172.7 cm [facility] [place] [facility] Body weight 2022-12-24 13:12:00 67.722 kg [facility] [place] [facility] BMI 2022-12-24 13:12:00 22.70 kg/m2 [facility] [place] [facility] Oxygen saturation in 2022-12-24 13:12:00 98 /min [facility] blood by [place] [facility] Pulse oximetry [facility] Systolic blood 2022-11-21 13:10:00 139 mm[Hg] Univer sity of pressure [facility] Diastolic blood 2022-11-21 13:10:00 73 mm[Hg] Unive rsity of pressure [facility] Heart rate 2022-11-21 13:00:00 72 /min [facility] [place] [facility] Body height 2022-11-21 13:00:00 170.2 cm [facility] [place] [facility] Body weight 2022-11-21 13:00:00 67.722 kg [facility] [place] [facility] BMI 2022-11-21 13:00:00 23.38 kg/m2 [facility] [place] [facility] Oxygen saturation in 2022-11-21 13:00:00 98 /min University of Arterial blood by [facility] Pulse oximetry Branch Systolic blood 2022-10-23 13:07:00 150 mm[Hg] Univer sity of pressure [facility] Diastolic blood 2022-10-23 13:07:00 77 mm[Hg] Unive rsity of pressure [facility] Heart rate 2022-10-23 13:06:00 68 /min [facility] [place] [facility] Body height 2022-10-23 13:06:00 172.7 cm [facility] [place] [facility] Body weight 2022-10-23 13:06:00 67.178 kg [facility] [place] [facility] BMI 2022-10-23 13:06:00 22.52 kg/m2 [facility] [place] [facility] Oxygen saturation in 2022-10-23 13:06:00 98 /min University of Arterial blood by [facility] rolan Pulse oximetry Branch Systolic blood 2022-09-24 13:17:00 171 mm[Hg] Univer sity of pressure [place] [facility] Diastolic blood 2022-09-24 13:17:00 87 mm[Hg] Unive rsity of pressure [facility] Heart rate 2022-09-24 13:16:00 79 /min [facility] [place] [facility] Body height 2022-09-24 13:16:00 170.2 cm [facility] [place] [facility] Body weight 2022-09-24 13:16:00 66.679 kg [facility] [place] [facility] BMI 2022-09-24 13:16:00 23.02 kg/m2 [facility] [place] [facility] Oxygen saturation in 2022-09-24 13:16:00 98 /min [facility] Arterial blood by [place] [facility] Pulse oximetry Branch Systolic blood 2022-08-22 12:06:00 167 mm[Hg] Univer sity of pressure [facility] Diastolic blood 2022-08-22 12:06:00 91 mm[Hg] Unive rsity of pressure [facility] Heart rate 2022-08-22 12:02:00 71 /min [facility] [place] [facility] Body height 2022-08-22 12:02:00 171.5 cm [facility] [place] [facility] Body weight 2022-08-22 12:02:00 65.908 kg [facility] [place] [facility] BMI 2022-08-22 12:02:00 22.42 kg/m2 [facility] [place] [facility] Oxygen saturation in 2022-08-22 12:02:00 100 /min [facility] Arterial blood by [place] [facility] Pulse oximetry [facility] Systolic blood 2022-07-23 20:46:00 193 mm[Hg] Univer sity of pressure [facility] Diastolic blood 2022-07-23 20:46:00 94 mm[Hg] Unive rsity of pressure [facility] Heart rate 2022-07-23 20:42:00 77 /min [facility] [place] [facility] Body weight 2022-07-23 20:42:00 66.679 kg [facility] [place] [facility] BMI 2022-07-23 20:42:00 31.26 kg/m2 [facility] [place] [facility] Systolic blood 2022-07-03 21:02:00 175 mm[Hg] Univer sity of pressure [facility] Diastolic blood 2022-07-03 21:02:00 105 mm[Hg] Unive rsity of pressure [facility] Heart rate 2022-07-03 21:02:00 82 /min [facility] [place] [facility] Body temperature 2022-07-03 21:02:00 26.11 [facility] Body height 2022-07-03 21:02:00 146.1 cm [facility] Body weight 2022-07-03 21:02:00 66.134 kg [facility] BMI 2022-07-03 21:02:00 31.00 kg/m2 [facility] Oxygen saturation in 2022-07-03 21:02:00 98 /min [facility] Arterial blood by [facility] Pulse oximetry Branch BMI Calculated 2022-12-26 19:13:00 [facility] [place] Systolic (mm Hg) 2022-12-26 19:13:00 [place] [facility] [place] Diastolic (mm Hg) 2022-12-26 19:13:00 Mem orial [place] Heart Rate 2022-12-26 19:13:00 [facility] [place] Height 2022-12-26 19:13:00 5 [ft_i] [facility] Weight 2022-12-26 19:13:00 [facility] Systolic (mm Hg) 2022-07-13 14:28:00 [facility] rial [place] Diastolic (mm Hg) 2022-07-13 14:28:00 Mem orial [place] Heart Rate 2022-07-13 14:28:00 [facility] [place] Respitory Rate 2022-07-13 14:28:00 [facility]ori al [place] Height 2022-07-13 14:28:00 170.18 cm [facility] [place] Weight 2022-07-13 14:28:00 [facility] BMI Calculated 2022-07-13 14:28:00 [facility] [place] Systolic (mm Hg) 2022-03-20 20:18:00 [facility] rial [place] Diastolic (mm Hg) 2022-03-20 20:18:00 Mem orial [place] Heart Rate 2022-03-20 20:18:00 [facility] [place] Respitory Rate 2022-03-20 20:18:00 [facility] [place] Height 2022-03-20 20:18:00 167.64 cm [facility] Weight 2022-03-20 20:18:00 [facility] BMI Calculated 2022-03-20 20:18:00 [facility] [place] Systolic (mm Hg) 2021-09-18 19:15:00 [place] rial [place] Diastolic (mm Hg) 2021-09-18 19:15:00 Mem orial [place] Heart Rate 2021-09-18 19:15:00 [facility] Respitory Rate 2021-09-18 19:15:00 [facility] [place] Height 2021-09-18 19:15:00 170.18 cm [facility] [place] Weight 2021-09-18 19:15:00 [facility] [place] BMI Calculated 2021-09-18 19:15:00 [facility] [place] Systolic (mm Hg) 2021-04-21 14:47:00 Wilman rial [place] Diastolic (mm Hg) 2021-04-21 14:47:00 Mem orial [place] Heart Rate 2021-04-21 14:47:00 [facility] Respitory Rate 2021-04-21 14:47:00 Memori al [place] Height 2021-04-21 14:47:00 170.18 cm [facility] Weight 2021-04-21 14:47:00 [facility] [place] BMI Calculated 2021-04-21 14:47:00 [facility] [place] Systolic (mm Hg) 2021-04-05 14:39:00 [place] rial [place] Diastolic (mm Hg) 2021-04-05 14:39:00 Mem [facility] [place] Heart Rate 2021-04-05 14:39:00 [facility] [place] Respitory Rate 2021-04-05 14:39:00 [facility] [place] Height 2021-04-05 14:39:00 170.18 cm [facility] Weight 2021-04-05 14:39:00 [facility] [place] BMI Calculated 2021-04-05 14:39:00 [facility] [place] Systolic (mm Hg) 2021-03-08 14:54:00 Wilman rial [place] Diastolic (mm Hg) 2021-03-08 14:54:00 Mem orial [facility] Heart Rate 2021-03-08 14:54:00 [facility] [place] Respitory Rate 2021-03-08 14:54:00 [facility] Weight 2021-03-08 14:54:00 [facility] Height 2020-12-27 20:49:00 170.18 cm [facility] [place] Weight 2020-12-27 20:49:00 [facility] BMI Calculated 2020-12-27 20:49:00 Mem[facility] Systolic (mm Hg) 2020-10-05 17:03:00 Wilman mejia [facility] Diastolic (mm Hg) 2020-10-05 17:03:00 Mem oriphilipp [facility] Heart Rate 2020-10-05 17:03:00 [facility] Respitory Rate 2020-10-05 17:03:00 [facility] [place] Height 2020-10-05 17:03:00 172.72 cm [facility] Weight 2020-10-05 17:03:00 [facility] BMI Calculated 2020-10-05 17:03:00 [facility] [place] Procedures This patient has no known procedures. Encounters Start End Encounter Admission Attending Care Care Encounter Source Date/Time Date/Time Type Type Clinicians Facility Department ID 2023-05-09 2023-05-09 [id number] [facility] 14:00:00 14:00:00 13 maritza Michael 2023-05-09 2023-05-09 [facility] [id number] Memoria 14:00:00 14:00:00 13 l [place] 2023-03-28 2023-03-28 Outpatient Elis [facility]O [facility] [id number] Univers 07:30:00 07:30:00 [facility] 2023-02-25 2023-02-25 [facility] [id number] Univers 07:15:00 07:30:20 [facility] 2023-02-25 2023-02-25 [facility] 1.2.840.114 [id number] Univers 07:15:00 07:30:20 Visit [facility] 350.1.13.10 it y of [place] 4.2.7.2.686 Dennis as MAGDY?BLEA [id number] [address] MEDICAL OFFICE BUILDING 2023-01-22 2023-01-22 Outpatient [facility] [id number] Univers 07:15:00 07:20:43 [facility] 2023-01-22 2023-01-22 [facility] 1.2.840.114 [id number] Univers 07:15:00 07:20:43 Visit [facility] 350.1.13.10 it y of [place] 4.2.7.2.686 Dennis as MAGDY?BLEA [id number] [address] OFFICE [facility] 2022-12-26 2022-12-27 Outpatient MHIE MNA [id number] Memoria 19:15:00 05:59:59 Neurology 12 l Destini Rodriguez 2022-12-26 2022-12-27 Outpatient MHIE MNA [id number] Memoria 19:15:00 05:59:59 Neurology 12 l Destini Rodriguez 2022-12-26 2022-12-26 Outpatient Mercedes MISCHER MHMISCHER [id number] 13:15:00 23:59:59 Asad 12 [place] 2022-12-26 2022-12-26 Outpatient MHIE MHIE [id number] Memoria 13:15:00 13:15:00 12 maritza [place] 2022-12-24 2022-12-24 Outpatient Elis [facility] [id number] [facility] 07:15:00 07:34:30 [facility] 2022-12-24 2022-12-24 [facility] 1.2.840.114 [id number] [facility] 07:15:00 07:34:30 Visit [facility] 350.1.13.10 it y of [place] 4.2.7.2.686 Dennis as MAGDY?BLEA [id number] [address] 2022-11-29 2022-11-29 [facility] 1.2.840.114 [id number] Univers 00:00:00 00:00:00 [facility] 350.1.13.10 it y of [place] 4.2.7.2.686 Dennis as MAGDY?BLEA [id number] [address] OFFICE [facility] 2022-11-21 2022-11-21 Outpatient Elis [facility] [id number] Univers 07:00:00 07:39:32 [facility] 2022-11-21 2022-11-21 [facility] 1.2.840.114 [id number] Univers 07:00:00 07:39:32 Visit [facility] 350.1.13.10 it y of [place] 4.2.7.2.686 Dennis as MAGDY?BLEA [id number] [address] OFFICE [facility] 2022-10-28 2022-10-28 [facility] 1.2.840.114 [id number] Univers 00:00:00 00:00:00 Quintin VELEZ 350.1.13.10 i ty [place].2.[place] [id number] [address] 2022-10-23 2022-10-23 Out[facility] [id number] Univers 07:00:00 07:23:37 QUINTIN rucker [facility] 2022-10-23 2022-10-23 Office [facility] 1.2.840.114 [id number] Univers 07:00:00 07:23:37 Visit [facility] 350.1.13.10 it y of [place] 4.2.7.2.686 Dennis as MAGDY?BLEA [id number] [address] OFFICE [facility] 2022-09-24 2022-09-24 Outpatient [facility] [id number] Univers 07:15:00 07:26:18 QUINTIN rucker [facility] 2022-09-24 2022-09-24 [facility] 1.2.840.114 [id number] Univers 07:15:00 07:26:18 Visit [facility] 350.1.13.10 it y of [place] 4.2.7.2.686 Dennis as MAGDY?BLEA [phone] [address] OFFICE [facility] 2022-09-21 2022-09-21 Refjesusita [facility] 1.2.840.114 [id number] Univers 00:00:00 00:00:00 Quintin HEALTH 350.1.13.10 it y of [place] 4.2.7.2.686 Dennis as MAGDY?BLEA [id number] Me sherley JACK [address] [place] MEDICAL OFFICE [facility] 2022-08-22 2022-08-22 Outpatient R CHECO [facility] [id number] Univers 07:15:00 07:19:35 QUINTIN [facility] 2022-08-22 2022-08-22 [facility] 1.2.840.114 [id number] Univers 07:15:00 07:19:35 Visit [facility] 350.1.13.10 it [facility] 4.2.7.2.686 Dennis as MAGDY?BLEA [phone] Or sherley JACK [address] [facility] OFFICE [facility] 2022-07-23 2022-07-23 Outpatient R JENNY [facility] [id number] Univers 15:45:00 16:02:04 ARIANA [facility] 2022-07-23 2022-07-23 Office [facility] 1.2.840.114 [id number] Univers 15:45:00 16:02:[address] [facility] 350.1.13.10 it y of [place] [facility] 4.2.7.2.686 Dennis as MAGDY?BLEA [phone] Or sherley JACK [address] [place] [address] OFFICE [facility] 2022-07-23 2022-07-23 Outpatient [facility] [id number] Univers 15:15:00 15:15:00 QUINTIN [facility] 2022-07-19 2022-07-19 Outpatient Elis [facility] [id number] Univers 07:15:00 07:15:00 QUINTIN [facility] 2022-07-17 2022-07-17 Telemedici Bossman, [facility] 1.2.840.114 [id number] Univers 16:30:00 17:00:00 ne Visit Nargis [facility] 350.1.13.10 ity of [facility] 4.2.7.2.686 [place] CENTER AT [phone] Or sherley KIRK 201 [facility] 2022-07-17 2022-07-17 Outpatient Elis ANDRE [facility] [id number] Univers 16:30:00 16:30:00 NARGIS [facility] 2022-07-13 2022-07-14 Outpatient nullFlavo MNA [id number] Memoria 14:30:00 04:59:59 r Neurology 11 maritza Rodriguez 2022-07-13 2022-07-14 Outpatient nullFlavo MNA [id number] Memoria 14:30:00 04:59:59 r Neurology 11 maritza Rodriguez 2022-07-13 2022-07-13 Outpatient Dandyestefanía [facility]ER [id number] 09:30:00 23:59:59 Asad Marzena Grimaldo 2022-07-13 2022-07-13 Outpatient MHIE MHIE [id number] Memoria 09:30:00 09:30:00 11 maritza Rodriguez 2022-07-04 2022-07-04 Telephone [facility] 1.2.840.114 [id number] Univers 00:00:00 00:00:00 Nargis SPECIALTY 350.1.13.10 ity of [place]2.7.2.[place] C[place] AT [phone] Or jaskaranphilipp TAYLORKatharina 201 [facility] 2022-07-03 2022-07-03 [facility] [id number] Univers 16:00:00 16:52:35 NARGIS [facility] 2022-07-03 2022-07-03 Office [facility] 1.2.287.609 [id number] Univers 16:00:00 16:52:35 [facility] 350.1.13.10 it[place] of [place].2.[place] C[place] AT [phone] Or sherley BRANDONKatharina 201 [facility] 2022-07-03 2022-07-03 Telephone [facility] 1.2.371.364 [id number] Univers 00:00:00 00:00:00 [facility] 350.1.13.10 it [facility] 4.2.7.2.686 Dennis as MAGDY?BLEA [phone] Or sherley JACK [address] [place] [address] MEDICAL OFFICE BUILDING 2022-07-02 2022-07-02 Telephone [facility] 1.2.840.114 [id number] Univers 00:00:00 00:00:00 [facility] 350.1.13.10 it [place].2.686 [place] [phone] [facility] [address] OFFICE BUILDING 2022-06-29 2022-06-29 Emergency Dillan Burnette TRAUMA 1.2.8 40.114 [id number] Univers 15:33:00 20:40:00 [facility] 350.1.13.10 it[place] [id number] [facility] [address] 2022-06-29 2022-06-29 Emergency [facility] ERT [id number] Univers 11:34:00 14:09:00 SIVAN rucker [facility] 2022-06-29 2022-06-29 Emergency [facility] ERT [id number] Univers 11:34:00 14:09:00 SIVAN eribertokatharina [facility] 2022-06-29 2022-06-29 Emergency Alvarez, Lois S [facility] 1.2.840.1 14 [id number] Univers 11:34:00 14:09:00 Reji Hornnell [place] 350.1.13.10 ity of [place] 4.2.7.2.686 [place] [facility] [phone] [place] [address] [place] 2022-06-29 2022-06-29 Outpatient Elis MCKEON [facility] [id number] Univers 11:00:00 11:05:49 ANGIE rucker [facility] 2022-06-29 2022-06-29 Urgent Carl Thomas [facility] 1.2.840. 114 [id number] Univers 11:00:00 11:05:49 [facility] 350.1.13.10 ity of [place] 4.2.7.2.686 Dennis as MAGDY?BLEA [id number] Or sherley [address] MEDICAL OFFICE BUILDING 2022-06-20 2022-06-20 Outpatient Elis [facility]LLO [facility] [id number] Univers 07:00:00 07:25:22 QUINTIN rucker [facility] 2022-06-20 2022-06-20 [facility] 1.2.840.114 [id number] Univers 07:00:00 07:25:22 Visit [facility] 350.1.13.10 it y of [place] 4.2.7.2.686 Dennis as MAGDY?BLEA [id number] [address] MEDICAL OFFICE [facility] 2022-06-20 2022-06-20 Outpatient R CHECO [facility] [id number] Univers 07:00:00 07:00:00 QUINTIN rucker [facility] 2022-05-30 2022-05-30 Telephone [facility] 1.2.517.978 [id number] Univers 00:00:00 00:00:00 [place] [facility] 350.1.13.10 it y [facility] 4.2.7.2.686 Dennis as MAGDY?BLEA [id number] [address] MEDICAL OFFICE [facility] 2022-05-29 2022-05-29 Refill [facility] 1.2.840.114 [id number] Univers 00:00:00 00:00:00 [facility] 350.1.13.10 it y of [place] 4.2.7.2.686 Dennis as MAGDY?BLEA [phone] [address] MEDICAL OFFICE [facility] 2022-05-28 2022-05-28 Orders Doctor PRICILLA 1.2.840.114 [id number] Univers 00:00:00 00:00:00 Only Unassigned, NATHAN 350.1.13.10 ity of [place] [facility] 4.2.7.2.686 Dennis as [id number] [address] 2022-05-22 2022-05-22 Outpatient R [facility]O [facility] [id number] Univers 07:15:00 07:39:18 QUINTIN rucker [facility] 2022-05-22 2022-05-22 [facility] 1.2.840.114 [id number] Univers 07:15:00 07:39:18 Visit [facility] 350.1.13.10 it y of [place] 4.2.7.2.686 Dennis as MAGDY?BLEA [phone] [address] 2022-04-29 2022-04-29 Refjesusita [facility] 1.2.840.114 [id number] Univers 00:00:00 00:00:00 Quintin VELEZ 350.1.13.10 i ty of [place].2.7.2.686 [place] [id number] [address] 2022-04-16 2022-04-16 Outpatient Elis [facility] [id number] Univers 15:15:00 15:42:12 [facility] 2022-04-16 2022-04-16 [facility] 1.2.840.114 [id number] Univers 15:15:00 15:42:[address] [facility] 350.1.13.10 it y of [place] 4.2.7.2.686 Dennis as MAGDY?BLEA [id number] [address] 2022-04-16 2022-04-16 Outpatient Elis [facility]O [facility] [id number] Univers 15:15:00 15:42:12 [facility] 2022-04-16 2022-04-16 Outpatient Elis [facility] [id number] Univers 15:15:00 15:15:00 [facility] 2022-04-02 2022-04-02 Orders Doctor PLEITEZ 1.2.840.114 [id number] Univers 00:00:00 00:00:00 Only Unassigned, NATHAN 350.1.13.10 ity of [place] [facility] 4.2.7.2.686 Dennis as [phone] [address] 2022-03-26 2022-03-26 Refjesusita [facility] 1.2.840.114 [id number] Univers 00:00:00 00:00:[address] [facility] 350.1.13.10 it y [facility] 4.2.7.2.686 Dennis as MAGDY?BLEA [id number] [address] 2022-03-21 2022-03-21 Service Observer Chief Lab, Ang - Db [facility] 1.2.840.1 14 [id number] Univers 07:30:00 07:45:[address] [facility] 350.1.13.10 ity of [facility] 4.2.7.2.686 Dennis as MAGDY?BLEA [id number] [facility] [address] OFFICE [facility] 2022-03-21 2022-03-21 Outpatient [facility] [id number] Univers 07:15:00 07:21:56 QUINTIN [facility] 2022-03-21 2022-03-21 Office [facility] 1.2.840.114 [id number] Univers 07:15:00 07:21:56 Visit [facility] 350..13.10 it y of [place] 4.2.7.2.686 Dennis as MAGDY?BLEA [id number] [address] OFFICE [facility] 2022-03-20 2022-03-21 Outpatient nullFlavo MNA [id number] Memoria 20:15:00 04:59:59 r Neurology 10 l Destini Michael 2022-03-20 2022-03-21 Outpatient nullFlavo MNA [id number] Memoria 20:15:00 04:59:59 r Neurology 10 l Destini Rodriguez 2022-03-20 2022-03-20 Outpatient MADALYN LongSCHASUNCION HELLERMISCHER [id number] 15:15:00 23:59:59 Asad Joe Grimaldo 2022-03-20 2022-03-20 Outpatient MHIE PINAIE [id number] Memoria 15:15:00 15:15:00 10 l Michael 2022-02-22 2022-02-22 [facility] 1.2.840.114 [id number] Univers 07:15:00 07:28:11 Visit [facility] 350.1.13.10 it y of [place] 4.2.7.2.686 Dennis as MAGDY?BLEA [id number] [address] OFFICE [facility] 2022-02-22 2022-02-22 Outpatient Elis [facility] [id number] Univers 07:15:00 07:28:11 QUINTIN rucker [facility] 2022-02-22 2022-02-22 Outpatient Elis [facility] [id number] Univers 07:15:00 07:28:11 QUINTIN rucker [facility] 2022-02-22 2022-02-22 Outpatient Elis [facility] [id number] Univers 07:15:00 07:15:00 QUINTIN rucker [facility] 2022-02-22 2022-02-22 Outpatient Elis [facility] [id number] Univers 07:15:00 07:15:00 QUINITN rucker [facility] 2022-02-22 2022-02-22 Outpatient Elis [facility] [id number] Univers 07:15:00 07:15:00 QUINTIN ity [facility] 2022-01-23 2022-01-23 Outpatient Elis CHECO [facility] [id number] Univers 08:00:00 08:28:30 QUINTIN rucker [facility] 2022-01-23 2022-01-23 Office [facility] 1.2.840.114 [id number] Univers 08:00:00 08:28:30 Visit [facility] 350.1.13.10 it y of [place] 4.2.7.2.686 Dennis as MAGDY?BLEA [id number] [address] MEDICAL OFFICE BUILDING 2021-12-21 2021-12-21 Outpatient Elis [facility] [id number] Univers 07:00:00 07:17:16 QUINTIN ity [facility] 2021-12-21 2021-12-21 Outpatient Elis CHECO [facility] [id number] Univers 07:00:00 07:00:00 QUINTIN ity [facility] 2021-11-21 2021-11-21 Outpatient Elis ARRIAGAVALLECILLO [facility] [id number] Univers 07:15:00 07:23:40 QUINTIN ity [facility] 2021-11-21 2021-11-21 Office [facility] 1.2.840.114 [id number] Univers 07:15:00 07:23:40 Visit [facility] 350.1.13.10 it y of [place] 4.2.7.2.686 Dennis as MAGDY?BLEA [phone] Or sherley MARTINEZ[address] OFFICE [facility] 2021-11-21 2021-11-21 Outpatient Elis [facility] [id number] Univers 07:15:00 07:15:00 QUINTIN rucker [facility] 2021-11-01 2021-11-01 [facility] 1.2.840.114 [id number] Univers 00:00:00 00:00:00 Ariana [place] 350.1.13.10 i ty of [place]2.7.2.686 [place] [id number] [address] 2021-10-18 2021-10-18 Outpatient [facility] [id number] Univers 07:15:00 07:20:00 QUINTIN rucker [facility] 2021-10-18 2021-10-18 Office [facility] 1.2.840.114 [id number] Univers 07:15:00 07:20:00 Visit [facility] 350.1.13.10 it y of [facility] 4.2.7.2.686 Dennis as MAGDY?BLEA [id number] [address] OFFICE [facility] 2021-10-18 2021-10-18 Outpatient Elis [facility] [id number] Univers 07:15:00 07:15:00 QUINTIN rucker [facility] 2021-09-21 2021-09-21 Refjesusita [facility] 1.2.840.114 [id number] Univers 00:00:00 00:00:00 [facility] 350.1.13.10 it y of [place] 4.2.7.2.686 Dennis as PROFESSIO [id number] [address] ONE 2021-09-18 2021-09-19 Outpatient nullFlavo MNA [id number] Memoria 19:00:00 05:59:59 r Neurology 09 l [place] Michael 2021-09-18 2021-09-19 Outpatient nullFlavo MNA [id number] Memoria 19:00:00 05:59:59 r Neurology 09 maritza Rodriguez 2021-09-18 2021-09-18 Outpatient KATHLEEN Long [id number] 13:00:00 23:59:59 Asad Cecily Grimaldo 2021-09-18 2021-09-18 Outpatient KATHERINE MURPHY [id number] Memoria 13:00:00 13:00:00 09 maritza Rodriguez 2021-09-18 2021-09-18 Outpatient Elis [facility] [id number] Univers 07:30:00 09:02:15 QUINTIN chaim [facility] 2021-09-18 2021-09-18 [facility] 1.2.840.114 [id number] Univers 07:20:17 09:02:15 Visit [facility] 350.1.13.10 it y [facility] 4.2.7.2.686 Dennis as MAGDY?BLEA [id number] [address] OFFICE [facility] 2021-09-05 2021-09-05 Orders Doctor PRICILLA 1.2.840.114 [id number] Univers 00:00:00 00:00:00 Only Unassigned, NATHAN 350.1.13.10 ity of [place] [facility] 4.2.7.2.686 Dennis as [id number] [address] 2021-08-21 2021-08-21 Orders Doctor PRICILLA 1.2.840.114 [id number] Univers 00:00:00 00:00:00 Only Unassigned, NATHAN 350.1.13.10 ity of [place] [facility] 4.2.7.2.686 Dennis as [id number] [address] 2021-08-17 2021-08-17 [facility] 1.2.840.114 [id number] Univers 06:49:09 07:18:07 Visit [facility] 350.1.13.10 it y of [place] 4.2.7.2.686 Dennis as Magdy?Blea [phone] [address] Office [facility] 2021-08-17 2021-08-17 Outpatient [facility] [id number] Univers 07:15:00 07:15:00 QUINTIN chaim [facility] 2021-07-31 2021-07-31 Hospital [facility] 1.2.362.742 [id number] Univers 12:19:03 23:59:00 Encounter [facility] 350.1.13.10 ity of [place] 4.2.7.2.686 Dennis as Magdy?Blea [phone] Or dical kney 808 [facility] Office [facility] 2021-07-31 2021-07-31 [facility] [id number] Univers 12:19:03 23:59:00 CARL campbell [facility] 2021-07-31 2021-07-31 [facility] 1.2.840.114 [id number] Univers 12:17:29 12:37:29 Care [facility] 350.1.13.10 i ty of [place] 4.2.7.2.686 Dennis as Magdy?Blea [phone] Or dicphilipp [facility] 370 [facility] 2021-07-31 2021-07-31 Outpatient R [facility] [id number] Univers 10:00:00 10:00:00 CALR campbell [facility] 2021-07-31 2021-07-31 Service Observer Chief Lab, Ang - Db [facility] 1.2.840.1 14 [id number] Univers 09:34:04 09:49:04 Visit [facility] 350.1.13.10 ity of [place] 4.2.7.2.686 Dennis as Magdy?Blea [phone] Or dical kney 353 [facility] Office [facility] 2021-07-28 2021-07-28 Urgent [facility]Leslie [facility] 1.2.840. 114 [id number] Univers 18:55:56 19:17:16 Care [facility] 350.1.13.10 ity of [place] 4.2.7.2.686 Dennis as Magdy?Blea [phone] Or dical kney 370 [facility] Office [facility] 2021-07-28 2021-07-28 Outpatient R [facility] [id number] Univers 19:00:00 19:00:00 ity of [facility] 2021-07-25 2021-07-25 Ambulatory nullFlavo MNA [id number] Memoria 15:30:00 15:30:00 Pre-Reg r Neurology 08 l [place] Michael 2021-07-25 2021-07-25 Ambulatory nullFlavo MNA [id number] Memoria 15:30:00 15:30:00 Pre-Reg r Neurology 08 l Destini Rodriguez 2021-07-25 2021-07-25 Outpatient MHIE MHIE [id number] Memoria 10:30:00 10:30:00 08 l Michael 2021-07-25 2021-07-25 Outpatient Mercedes MHMISCHER MHMISCHER [id number] 10:30:00 10:30:00 Asad Grimaldo 2021-07-20 2021-07-20 [facility] 1.2.840.114 [id number] Univers 06:58:41 07:18:26 Visit [facility] 350.1.13.10 it y of [place] 4.2.7.2.686 Dennis as Magdy?Blea [phone] Or sherley jack 044 [facility] Office [facility] 2021-07-20 2021-07-20 Outpatient [facility] [id number] Univers 07:00:00 07:00:00 QUINTIN rucker of [facility] 2021-07-14 2021-07-14 Orders Doctor PRICILLA 1.2.840.114 [id number] Univers 00:00:00 00:00:00 Only Unassigned, NATHAN 350.1.13.10 ity of [place] [facility] 4.2.7.2.686 Dennis as [phone] [address] 2021-06-22 2021-06-22 [facility] 1.2.840.114 [id number] Univers 07:02:43 07:25:16 Visit [facility] 350.1.13.10 it y of [place] 4.2.7.2.686 Dennis as Magdy?Blea [phone] [address] Office Building 2021-06-22 2021-06-22 Outpatient Elis [facility]LLO [facility] [id number] Univers 07:15:00 07:15:00 QUINTIN rucker [facility] 2021-06-08 2021-06-08 Ambulatory nullFlavo MNA [id number] Memoria 14:00:00 14:00:00 Pre-Reg r Neurology 06 l [place] 2021-06-08 2021-06-08 Ambulatory nullFlavo MNA [id number] Memoria 14:00:00 14:00:00 Pre-Reg r Neurology 06 l Destini Rodriguez 2021-06-08 2021-06-08 Outpatient MHIE MHIE [id number] Memoria 09:00:00 09:00:00 06 l [place] 2021-06-08 2021-06-08 [id number] 09:00:00 09:00:00 Asad Grimaldo 2021-05-22 2021-05-22 [facility] 1.2.840.114 [id number] Univers 08:16:41 08:54:17 Visit [facility] 350.1.13.10 it y curt Velez 4.2.7.2.686 Dennis as Professio [phone] [address] Office [facility] 2021-05-22 2021-05-22 [facility] [id number] Univers 08:30:00 08:30:00 QUINTIN chaim [facility] 2021-04-28 2021-04-28 [facility] 1.2.840.114 [id number] Univers 00:00:00 00:00:00 Quintin Velez 350.1.13.10 i ty curt [place] 4[place]2.7.2.686 [place] [phone] [address] 2021-04-21 2021-04-22 Outpatient nullFlavo MNA [id number] Memoria 14:45:00 04:59:59 r Neurology 07 l Destini Crystalann 2021-04-21 2021-04-22 Outpatient nullFlavo MNA [id number] Memoria 14:45:00 04:59:59 r Neurology 07 l Destini Rodriguez 2021-04-21 2021-04-21 Outpatient KATHLEEN Long [id number] 09:45:00 23:59:59 Asad Sanjay Dillan 2021-04-21 2021-04-21 Outpatient MHIE VIOLET [id number] Memoria 09:45:00 09:45:00 07 maritza Rodriguez 2021-04-20 2021-04-20 [facility] 1.2.840.114 [id number] Univers 07:03:51 07:28:59 Visit [facility] 350.1.13.10 it y of [place] 4.2.7.2.686 Dennis as Profess [phone] [address] Office [facility] 2021-04-20 2021-04-20 Outpatient [facility] [id number] Univers 07:15:00 07:15:00 QUINTIN rucker [facility] 2021-04-10 2021-04-10 Orders Doctor PRICILLA 1.2.840.114 [id number] Univers 00:00:00 00:00:00 Only Unassigned, [place] 350.1.13.10 ity of [facility] 4.2.7.2.686 [place] as [phone] [address] 2021-04-05 2021-04-06 Outpatient nullFlavo MNA [id number] Memoria 14:45:00 04:59:59 r Neurology 05 l Destini Rodriguez 2021-04-05 2021-04-06 Outpatient nullFlavo MNA [id number] Memoria 14:45:00 04:59:59 r Neurology 05 l Destini Rodriguez 2021-04-05 2021-04-05 Outpatient KATHLEEN Long [id number] 09:45:00 23:59:59 Asad Fareed Dillan 2021-04-05 2021-04-05 Outpatient MHIE KATHERINE [id number] Memoria 09:45:00 09:45:00 05 maritza Rodriguez 2021-03-23 2021-03-23 [facility] 1.2.840.114 [id number] Univers 06:55:38 07:10:38 Visit [facility] 350.1.13.10 it y of [place] 4.2.7.2.686 Dennis as Professio [phone] [address] Office [facility] 2021-03-23 2021-03-23 Outpatient R [facility] [id number] Univers 07:00:00 07:00:00 QUINTIN weiy of [facility] 2021-03-23 2021-03-23 Orders Doctor PRICILLA 1.2.840.114 [id number] Univers 00:00:00 00:00:00 Only Unassigned, NATHAN 350.1.13.10 [facility] 4.2.7.2.686 Dennis as [phone] [address] 2021-03-15 2021-03-15 Refjesusita [facility] 1.2.840.114 [id number] Univers 00:00:00 00:00:00 Quintin [place] [address].13.[address] [place] [phone] [address] 2021-03-15 2021-03-15 Refjesusita [facility] 1.2.840.114 [id number] Univers 00:00:00 00:00:00 [facility] 350.1.13.10 it y of [place] 4.2.7.2.686 [place] as Professio [phone] [address] Office [facility] 2021-03-13 2021-03-13 Telephone [facility] 1.2.312.827 [id number] Univers 00:00:00 00:00:00 [facility] 350.1.13.10 it y of [place] 4.2.7.2.686 [place] as Professio [phone] [address] Office [facility] 2021-03-08 2021-03-09 Outpatient nullFlavo MNA [id number] Memoria 14:45:00 04:59:59 r Neurology 04 l [place] Michael 2021-03-08 2021-03-09 Outpatient nullFlavo MNA [id number] Memoria 14:45:00 04:59:59 r Neurology 04 l Destini Rodriguez 2021-03-08 2021-03-08 Outpatient MADALYN LongSCHASUNCION BERGMANBRITTNEYASUNCION [id number] 09:45:00 23:59:59 Asad Gracie Grimaldo 2021-03-08 2021-03-08 Outpatient MHIE PINAIE [id number] Memoria 09:45:00 09:45:00 04 l Michael 2021-03-02 2021-03-04 Outside nullFlavo MNA [id number] Memoria 16:28:56 04:59:59 Medical r Neurology 01 l Records Destini Crystalann 2021-03-02 2021-03-04 Outside nullFlavo MNA [id number] Memoria 16:28:56 04:59:59 Medical r Neurology 01 l Records Destini Michael 2021-03-02 2021-03-03 [facility] [id number] 11:28:56 23:59:59 01 2021-02-21 2021-02-21 Office [facility] 1.2.840.114 [id number] 06:54:52 07:30:14 Visit [facility] 350.1.13.10 [place] 4.2.7.2.686 Professio [phone] nal [facility] Office Building One 2021-02-21 2021-02-21 Office [place] 1.2.840.114 [id number] Univers 06:54:52 07:30:14 Visit [facility] 350.1.13.10 it y of [place] 4.2.7.2.686 [place] as Professio [phone] Or dical [address] Office Building One 2021-02-21 2021-02-21 Outpatient Elis [facility] [id number] Univers 07:15:00 07:15:00 QUINTIN rucker [facility] 2021-02-19 2021-02-19 Refill [facility] 1.2.840.114 [id number] Univers 00:00:00 00:00:00 Quintin Castillo[address]13.[address] [place] [phone] [address] 2021-02-02 2021-02-02 [facility]phone [facility] 1.2.042.172 [id number] Univers 00:00:00 00:00:00 [facility] 350.1.13.10 it y of [place] 4.2.7.2.686 [place] as Professio [phone] [address] Office [facility] 2021-01-23 2021-01-23 Refill [facility] 1.2.840.114 [id number] Univers 00:00:00 00:00:00 [facility] 350.1.13.10 it y of [place] 4.2.7.2.686 [place] as Professio [phone] [address] One 2021-01-22 2021-01-22 [facility]phone [facility] 1.2.689.203 [id number] Univers 00:00:00 00:00:00 [facility] 350.1.13.10 it y of [place] 4.2.7.2.686 [place] as Professio [phone] [address] One 2021-01-19 2021-01-19 [facility] 1.2.840.114 [id number] Univers 07:02:41 07:26:53 Visit [facility] 350.1.13.10 it y of [place] 4.2.7.2.686 [place] as Professio [phone] [address] Office [facility] 2021-01-19 2021-01-19 Outpatient R [facility] [id number] Univers 07:15:00 07:15:00 QUINTIN ity of [facility] 2020-12-29 2020-12-29 Telephone [facility] 1.2.741.431 [id number] Univers 00:00:00 00:00:00 [facility] 350.1.13.10 it y of [place] 4.2.7.2.686 [place] as Professio [phone] Or dical nal 044 [facility] One 2020-12-27 2020-12-28 Outpatient nullFlavo MNA [id number] Memoria 20:45:00 05:59:59 r Neurology 03 l Destini Rodriguez 2020-12-27 2020-12-28 Outpatient nullFlavo MNA [id number] Memoria 20:45:00 05:59:59 r Neurology 03 l Destini Michael 2020-12-27 2020-12-27 Outpatient KATHLEEN Long [id number] 14:45:00 23:59:59 Asad Riddhi Grimaldo 2020-12-27 2020-12-27 Outpatient MHIE PINAIE [id number] Memoria 14:45:00 14:45:00 03 maritza [place] 2020-12-22 2020-12-22 [facility] 1.2.840.114 [id number] Univers 08:10:12 08:51:13 Visit [facility] 350.1.13.10 it y [facility] 4.2.7.2.686 [place] as Professio [phone] [address] One 2020-12-22 2020-12-22 Outpatient Elis [facility] [id number] Univers 08:30:00 08:30:00 QUINTIN rucker [facility] 2020-12-20 2020-12-22 Outside nullFlavo MNA [id number] Memoria 20:07:04 05:59:59 Medical r Neurology 00 l Records [place] Michael 2020-12-20 2020-12-22 Outside nullFlavo MNA [id number] Memoria 20:07:04 05:59:59 Medical r Neurology 00 l Records Destini Rodriguez 2020-12-20 2020-12-21 Outpatient MHMISCHASUNCION MHINSCHER [id number] 14:07:04 23:59:59 00 2020-12-15 2020-12-15 Outpatient Elis [facility] [id number] Univers 07:00:00 07:00:00 QUINTIN katharina [facility] 2020-11-27 2020-11-27 Refjesusita [facility] 1.2.840.114 [id number] Univers 00:00:00 00:00:00 Quintin Velez [address].13[address] [place] [phone] [address] 2020-11-16 2020-11-16 [facility] 1.2.840.114 [id number] Univers 06:54:01 07:18:31 Visit [facility] 350.1.13.10 it y of [place] 4.2.7.2.686 [place] as Professio [phone] [address] 2020-11-16 2020-11-16 [facility] [id number] Univers 07:00:00 07:00:00 QUINTIN rucker [facility] 2020-11-15 2020-11-15 Outpatient MHIE MHIE [id number] Memoria 14:45:00 14:45:00 02 [facility] 2020-11-15 2020-11-15 Outpatient MHIE MHIE [id number] Memoria 14:45:00 14:45:00 02 [facility] 2020-10-19 2020-10-19 [facility] 1.2.840.114 [id number] Univers 07:16:53 07:32:06 Visit [facility] 350.1.13.10 it y of [place] 4.2.7.2.686 [place] as Professio [phone] [address] 2020-10-19 2020-10-19 Outpatient R [facility] [id number] Univers 07:30:00 07:30:00 QUINTIN katharina [facility] 2020-10-15 2020-10-15 [facility]ita [facility] 1.2.840.114 [id number] Univers 00:00:00 00:00:00 Quintin Velez [address].1.13[address] [place] [phone] [address] 2020-10-11 2020-10-11 [facility]phone [facility] [id number] Univers 00:00:00 00:00:00 [facility] 350.1.13.10 it y of [place] 4.2.7.2.686 [place] as Professio [phone] [address] 2020-10-05 2020-10-06 Outpatient nullFlavo MNA [id number] Memoria 17:00:00 05:59:59 r Neurology 01 l Destini Crystalann 2020-10-05 2020-10-06 Outpatient nullFlavo MNA [id number] Memoria 17:00:00 05:59:59 r Neurology 01 l Destini Rodriguez 2020-10-05 2020-10-05 Outpatient Mercedes MHMISCHER MHMISCHER [id number] 11:00:00 23:59:59 Asad Philip Grimaldo 2020-10-05 2020-10-05 Outpatient MHIE MHIE [id number] Memoria 11:00:00 11:00:00 01 maritza [place] 2020-10-04 2020-10-04 [facility] 1.2.275.574 [id number] Univers 00:00:00 00:00:00 [facility] 350.1.13.10 it y of [place] 4.2.7.2.686 [place] as Professio [phone] [address] 2020-10-03 2020-10-03 Orders Doctor PRICILLA 1.2.840.114 [id number] Univers 00:00:00 00:00:00 Only Unassigned, NATHAN 350.1.13.10 ity of [place] [facility] 4.2.7.2.686 Dennis as [phone] [address] 2020-09-21 2020-09-21 [facility] [id number] Univers 08:45:00 08:45:00 QUINTIN itkatharina of [facility] 2020-09-21 2020-09-21 [facility] 1.2.840.114 [id number] Univers 08:22:33 08:37:33 Visit [facility] 350.1.13.10 it y of [place] 4.2.7.2.686 [place] as Professio [phone] [address] 2020-09-15 2020-09-15 Outpatient R [facility] [id number] Univers 07:00:00 07:00:00 QUINTIN rucker [facility] 2020-09-06 2020-09-06 Telephone [place] 1.2.671.651 [id number] Univers 00:00:00 00:00:00 [facility] 350.1.13.10 it y of [place] 4.2.7.2.686 [place] as Professio [phone] [address] 2020-08-31 2020-08-31 [facility] 1.2.840.114 [id number] Univers 00:00:00 00:00:00 Quintin Velez [address].1.13.[address] [place] [phone] [address] 2020-08-17 2020-08-17 [facility] 1.2.840.114 [id number] Univers 06:50:57 07:15:06 Visit [facility] 350.1.13.10 it y of [place] 4.2.7.2.686 [place] as Professio [phone] [address] 2020-08-17 2020-08-17 Outpatient Elis [facility] [id number] Univers 07:00:00 07:00:00 QUINTIN rucker [facility] 2020-07-18 2020-07-18 [facility] 1.2.840.114 [id number] Univers 06:52:06 07:28:40 Visit [facility] 350.1.13.10 it y of [place] 4.2.7.2.686 [place] as Professio [phone] [address] 2020-07-18 2020-07-18 Outpatient Elis [facility] [id number] Univers 07:00:00 07:00:00 QUINTIN rucker [facility] 2020-06-09 2020-06-09 [facility] 1.2.840.114 [id number] Univers 08:56:41 09:18:11 Visit Quintin Velez 350.1.13.[address] [place].2.[place] [phone] [address] 2020-06-09 2020-06-09 Outpatient [facility] [id number] Univers 09:15:00 09:15:00 QUINTIN rucker [facility] 2020-06-03 2020-06-03 [facility] 1.2.840.114 [id number] Univers 00:00:00 00:00:00 Quintin Velez [address]1.13.[address] [place].2.[place] [phone] [address] 2020-05-30 2020-05-30 Outpatient [facility] [id number] Univers 07:00:00 07:00:00 QUINTIN rucker [facility] 2020-05-09 2020-05-09 [facility] 1.2.840.114 [id number] Univers 09:51:26 10:07:49 Visit Quintin Velez 350.1.13.[address] [place].7.2.[place] [phone] [address] 2020-05-09 2020-05-09 Outpatient [facility] [id number] Univers 10:00:00 10:00:00 QUINTIN rucker [facility] 2020-04-04 2020-04-04 Outpatient [facility] [id number] Univers 07:30:00 07:30:00 QUINTIN rucker [facility] 2020-04-04 2020-04-04 [facility] 1.2.840.114 [id number] Univers 06:57:36 07:17:16 Visit Quintin Velez 350.1.13.[address] [place].2.[place] [phone] [address] 2020-03-13 2020-03-13 [facility] 1.2.840.114 [id number] Univers 00:00:00 00:00:00 [facility] 350.1.13.10 it y of [place] 4.2.7.2.686 [place] as Professio [phone] [address] 2020-03-03 2020-03-03 [facility] 1.2.840.114 [id number] Univers 07:25:18 07:48:13 Visit Quintin Velez 350.1.13.[address] [place].2.[place] [phone] [address] 2020-03-03 2020-03-03 Outpatient [facility] [id number] Univers 07:30:00 07:30:00 QUINTIN rucker [facility] 2020-03-03 2020-03-03 Letter Doctor PRICILLA 1.2.840.114 [id number] Univers 00:00:00 00:00:00 (Out) Unassigned, NATHAN 350.1.13.10 ity of [facility] 4.2.7.2.686 [place] as [phone] [address] 2020-02-02 2020-02-02 [facility] 1.2.840.114 [id number] Univers 08:52:46 09:21:09 Visit Quintin Velez 350.1.13.[address] [place].2.[place] [phone] [address] 2020-02-02 2020-02-02 Outpatient Elis [facility] [id number] Univers 09:15:00 09:15:00 QUINTIN rucker [facility] 2019-12-09 2019-12-09 [facility] 1.2.840.114 [id number] Univers 07:03:30 07:31:55 Visit [facility] 350.1.13.10 it y of [place] 4.2.7.2.686 [place] as Professio [phone] [address] 2019-12-09 2019-12-09 [facility] 1.2.840.114 [id number] Univers 00:00:00 00:00:00 [facility] 350.1.13.10 it y of [place] 4.2.7.2.686 [place] as Professio [phone] Or dical nal 044 [place] Office [facility] 2019-11-21 2019-11-21 [place], [place] [facility] 1.2.840.114 [id number] Univers 18:01:47 18:54:44 Care Unknown, Attending Health 350.1.13.10 ity of Surgical 4.2.7.2.686 [place] as Specialti [phone] Or dical es 370 [facility] 2019-11-12 2019-11-12 Telephone [facility] 1.2.021.520 [id number] Univers 00:00:00 00:00:00 [facility] 350.1.13.10 it y of [place] 4.2.7.2.686 [place] as Professio [phone] Or dical nal 044 [place] Office [facility] 2019-11-11 2019-11-11 [facility] 1.2.840.114 [id number] Univers 06:50:53 07:25:28 Visit [facility] 350.1.13.10 it y of [place] 4.2.7.2.686 [place] as Professio [phone] Or dical nal 044 [place] Office [facility] 2019-11-11 2019-11-11 [facility]phone [facility] 1.2.432.069 [id number] Univers 00:00:00 00:00:00 [facility] 350.1.13.10 it y of [place] 4.2.7.2.686 Dennis as Professio [phone] [facility] nal 044 [place] Office [facility] 2019-11-11 2019-11-11 Orders Doctor PRICILLA 1.2.840.114 [id number] Univers 00:00:00 00:00:00 Only Unassigned, NATHAN 350.1.13.10 ity of [place] [facility] 4.2.7.2.686 Dennis as [phone] [address] 2019-06-16 2019-06-16 Office [facility] 1.2.840.114 [id number] Univers 09:44:30 10:31:49 Visit [facility] 350.1.13.10 it y of [place] 4.2.7.2.686 Dennis as Moises [phone] Or [facility] [address] Office [facility] 2017-11-28 2017-11-28 Outpatient [facility] [id number] Memoria 15:15:00 15:15:00 00 maritza Rodriguez 2017-11-28 2017-11-28 Outpatient [facility] [id number] Memoria 15:15:00 15:15:00 00 maritza Rodriguez Results This patient has no known results.
[2023-03-24 09:56] LABS: Absolute Lymphocytes (CBC) 0.9 K/uL (0.7-4.9); Hematocrit 47.2 % (39.6-49.0); Lymphocytes % 6.9 % (15.3-44.8); MCV 89.2 fL (80-100); MPV 8.1 fL (7.6-11.3)
--- NOTE | 2023-03-24 09:56 | ER ---
Nurse's Notes [facility] Name: Ramiro Toledo Age: 63 yrs Sex: Male : 1960 Arrival Date: 03/24/2023 Time: 09:20 Bed 5 Private MD: Quintin Kessler S Diagnosis: Cerebral infarction, unspecified-left arm numbness;Essential (primary) hypertension Presentation: 03/24 09:22 Chief complaint: Patient states: Headache woke him up this morning at 0730, was having nj1 right arm numbness that went away, at 0800 left arm started feeling numb, co numbness to hand/fingers right now. States he had similar symptoms 2 years ago when he had a stroke and was given thrombolytic medication then. Went to bed feeling normal at 10pm last night. Only takes ASA and Plavix, no other anticoagulants per patient report. 09:22 Coronavirus screen: Vaccine status: Patient reports receiving the 2nd dose of the covid nj1 vaccine. Ebola Screen: Patient denies travel to an Ebola-affected area in the 21 days before illness onset. Initial Sepsis Screen: Does the patient meet any 2 criteria? No. Patient's initial sepsis screen is negative. Does the patient have a suspected source of infection? No. Patient's initial sepsis screen is negative. Risk Assessment: Do you want to hurt yourself or someone else? Patient reports no desire to harm self or others. Note No facial asymmetry noted. No weakness noted. Able to ambulate without difficulty from lobby to assigned room. Onset of symptoms was March 24, 2023 at 07:30. 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 - Social history:: Smoking status: Patient denies any tobacco usage or history of. Screenin:30 VAN Screening: Arm Drift: Patient shows no arm weakness. Patient is VAN negative. ko1 Visual Disturbance: No visual disturbance noted. Aphasia: No aphasia noted. Neglect: No neglect noted. [place] Swallow Protocol Exclusion Criteria: Exclusion Criteria Result: Proceed Brief Cognitive Screen What is your name? Normal, Where are you right now? Normal, What year is it? Normal. Oral Mechanism Examination Facial Symmetry: Normal, Motion: Normal, Lip Closure: Normal, Oral Mechanism Result: Normal. 3 oz Water Swallow Challenge: Pt able to drink all water without stopping, coughing, choking or throat clearing: Yes Result: PASS Notified: Raul Pandey MD. 09:37 [facility] ED Fall Risk Assessment (Adult) History of falling in the last 3 months, ko1 including since admission No falls in past 3 months (0 pts) Confusion or Disorientation No (0 pts) Intoxicated or Sedated No (0 pts) Impaired Gait No (0 pts) Mobility Assist Device Used No (0 pt) Altered Elimination No (0 pt) Score/Fall Risk Level 0 - 2 = Low Risk Oriented to surroundings, Maintained a safe environment, Educated pt \T\ family on fall prevention, incl call for assistance when getting out of bed, Assessed \T\ reinforced patient's understanding of fall precautions, Provided non-skid footwear, Hourly rounding (assess needs \T\ fall precautionary measures) done, Used ambulatory aids as needed (educated on \T\ assisted with), Used gait belt as appropriate. Abuse screen: Denies threats or abuse. Denies injuries from another. Nutritional screening: No deficits noted. Tuberculosis screening: No symptoms or risk factors identified. Assessment: 09:37 General: Appears in no apparent distress. Behavior is calm, cooperative, appropriate ko1 for age. Pain: Denies pain. Neuro: Reports numbness in left hand. Cardiovascular: No deficits noted. Respiratory: No deficits noted. GI: No deficits noted. : No deficits noted. EENT: No deficits noted. Derm: No deficits noted. Musculoskeletal: No deficits noted. 09:39 Reassessment: CODE STROKE CALLED, PT TO CT. hb Vital Signs: 09:22 BP 157 / 96; Pulse 87; Resp 20; Temp 98.5(O); Pulse Ox 98% ; Weight 68.04 kg (R); nj1 Height 5 ft. 7 in. ; Pain 05/06; 09:35 BP 157 / 96; Pulse 89; Resp 18; Pulse Ox 99% ; ko1 10:03 BP 176 / 94; Pulse 92; Resp 18; Pulse Ox 97% on R/A; ko1 10:24 BP 125 / 73; Pulse 69; Resp 18; Pulse Ox 99% ; bp 09:22 Body Mass Index 23.49 (68.04 kg, 170.18 cm) nj1 09:22 Pain Scale: Adult nj1 NIH Stroke Scale Scores: 09:30 NIHSS Score: 0 ko1 09:44 NIHSS Score: 1 mervat ED Course: 09:21 Patient arrived in ED. am2 09:21 Quintin Kessler MD is Private Physician. am2 09:22 Arm band placed on. nj1 09:24 Vika Pang, BAM is Primary Nurse. ko1 09:29 Raul Pandey MD is Attending Physician. mervat 09:30 EKG done, by ED staff, reviewed by Raul Pandey MD. mm9 09:30 Patient has correct armband on for positive identification. Bed in low position. Call mm9 light in reach. Side rails up X 1. Adult w/ patient. Warm blanket given. Client placed on continuous cardiac and pulse oximetry monitoring. NIBP monitoring applied. experimental worker on. Pulse ox on. NIBP on. 09:33 Inserted saline lock: 20 gauge in right antecubital area, using aseptic technique. ko1 Blood collected. 09:45 Triage completed. nj1 09:46 CRP Sent. mm9 09:46 Basic Metabolic Panel Sent. mm9 09:46 CBC with Diff Sent. mm9 09:46 LFT's Sent. mm9 09:46 Magnesium Sent. mm9 09:46 NT PRO-BNP Sent. mm9 09:46 PT-INR Sent. mm9 09:46 Troponin HS Sent. mm9 09:47 Initial lab(s) drawn, by ED staff, sent to lab. mm9 09:54 CT Stroke Brain w/o Contrast In Process Unspecified. EDMS 09:56 CT Head Angio In Process Unspecified. EDMS 09:56 CT Neck Angio In Process Unspecified. EDMS 09:[address] Pandey with Shayna Brower Rn from the [facility]. 10:00 CRP Sent. ko1 10:00 Basic Metabolic Panel Sent. ko1 10:00 LFT's Sent. ko1 10:00 Magnesium Sent. ko1 10:00 NT PRO-BNP Sent. ko1 10:00 PT-INR Sent. ko1 10:00 Troponin HS Sent. ko1 10:00 connected the neuro construction code administrator for [facility] with Dr. Pandey for patient transfer eb consultation. 10:14 XRAY Chest (1 view) In Process Unspecified. EDMS 10:50 administrative approval given by Polly Brower Rn/ patient has been accepted to [facility] room 7517/ Dr. Santana Graham has accepted the patient in transfer/ report to be called to the transfer center at [phone]. 11:06 No provider procedures requiring assistance completed. Patient transferred, IV remains ko1 in place. Administered Medications: 09:59 Drug: NS 0.9% IV 1000 ml Route: IV; Rate: 1 bolus; Site: right antecubital; ko1 09:59 Drug: foLIC Acid IVPB 1 mg Route: IVPB; Site: right antecubital; ko1 10:05 Drug: TNK FOR STROKE - Tenecteplase IV 0.25 mg/kg {Co-Signature: ko1 (Bird, bp Vika KUHN).} Route: IV; Rate: per protocol; Site: right antecubital; 10:24 Drug: Famotidine IVP 20 mg Route: IVP; Site: right antecubital; bp 10:44 Drug: Ondansetron IVP 4 mg Route: IVP; Site: right antecubital; ko1 Medication: 11:06 VIS not applicable for this client. ko1 Outcome: 09:56 ER care complete, transfer ordered by MD. crowell 11:20 Transferred by ground EMS [facility]. to [facility], Transfer ko1 form completed. X-rays sent w/ patient. 11:20 Condition: stable 11:20 Discharge instructions given to patient, EMS, Instructed on the need for transfer, Demonstrated understanding of instructions. 11:37 Patient left the ED. ko1 NIH Stroke Scale - NIH Stroke Score Date: 03/24/2023 Time: 09:30 Total Score = 0 10. Dysarthria (speech clarity - read or repeat words) - 0(Normal) 11. Extinction and Inattention (visual/tactile/auditory/spatial/personal) - 0(No abnormality) 1a. Level of Consciousness (LOC) - 0(Alert) 1b. Level of Consciousness (LOC) (Month \T\ Age) - 0(Both) 1c. LOC Commands (Open \T\ Closes Eyes/Street Light Lamp Cleaner) - 0(Both) 2. Best Gaze (Lateral Gaze Paresis) - 0(Normal) 3. Visual Field Loss - 0(No visual loss) 4. Facial Palsy - 0(Normal) 5a. Left Arm: Motor (10-second hold) - 0(No drift) 5b. Right Arm: Motor (10-second hold) - 0(No drift) 6a. Left Leg: Motor (5-second hold - always test supine) - 0(No drift) 6b. Right Leg: Motor (5-second hold - always test supine) - 0(No drift) 7. Limb Ataxia (finger/nose \T\ heel/solano - test with eyes open) - 0(Absent) 8. Sensory Loss (pinprick arms/legs/face) - 0(Normal) 9. Best Language: Aphasia (description/naming/reading) - 0(No aphasia) Initials: ko1 NIH Stroke Scale - NIH Stroke Score Date: 03/24/2023 Time: 09:44 Total Score = 1 10. Dysarthria (speech clarity - read or repeat words) - 0(Normal) 11. Extinction and Inattention (visual/tactile/auditory/spatial/personal) - 0(No abnormality) 1a. Level of Consciousness (LOC) - 0(Alert) 1b. Level of Consciousness (LOC) (Month \T\ Age) - 0(Both) 1c. LOC Commands (Open \T\ Closes Eyes/Street Light Lamp Cleaner) - 0(Both) 2. Best Gaze (Lateral Gaze Paresis) - 0(Normal) 3. Visual Field Loss - 0(No visual loss) 4. Facial Palsy - 0(Normal) 5a. Left Arm: Motor (10-second hold) - 0(No drift) 5b. Right Arm: Motor (10-second hold) - 0(No drift) 6a. Left Leg: Motor (5-second hold - always test supine) - 0(No drift) 6b. Right Leg: Motor (5-second hold - always test supine) - 0(No drift) 7. Limb Ataxia (finger/nose \T\ heel/solano - test with eyes open) - 0(Absent) 8. Sensory Loss (pinprick arms/legs/face) - 1(Mild to moderate loss) 9. Best Language: Aphasia (description/naming/reading) - 0(No aphasia) Initials: mervat Signatures: Dispatcher [employer] Raul Jacob MD MD cha Baxter, Heather RN RN hb Angie Matthews am2 Julius Willard RN RN Nikkie Duncan Kathy, RN RN ko1 Erinn Johnson mm9 Farnaz Whyte RN RN nj1 Vika Pang RN1 Corrections: (The following items were deleted from the chart) 11:21 09:40 Reassessment: CODE STROKE CALLED, PT TO CT hb hb
--- NOTE | 2023-03-24 09:56 | EDPHYS ---
Physician Documentation [facility] Name: Ramiro Toledo Age: 63 yrs Sex: Male : 1960 Arrival Date: 03/24/2023 Time: 09:20 Bed 5 Private MD: Quintin Kessler S ED Physician Raul Pandey HPI: 03/24 09:41 This 63 yrs old Male presents to ER via Unassigned with complaints of mervat Numbness Of Arm. 09:41 The patient or guardian complains of left arm numb, 8 am. The complaints affect the mervat anterior aspect of left shoulder, left bicep, posterior aspect of left shoulder and left tricep. Context: The problem was sustained at home, resulted from unknown cause. 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 - Social history:: Smoking status: Patient denies any tobacco usage or history of. ROS: 09:44 Constitutional: Negative for fever, chills, and weight loss, Eyes: Negative for injury, mervat pain, redness, and discharge, ENT: Negative for injury, pain, and discharge, Neck: Negative for injury, pain, and swelling, Cardiovascular: Negative for chest pain, palpitations, and edema, Respiratory: Negative for shortness of breath, cough, wheezing, and pleuritic chest pain, Abdomen/GI: Negative for abdominal pain, nausea, vomiting, diarrhea, and constipation, Back: Negative for injury and pain, : Negative for injury, bleeding, discharge, and swelling, MS/Extremity: Negative for injury and deformity, Skin: Negative for injury, rash, and discoloration, Psych: Negative for depression, anxiety, suicide ideation, homicidal ideation, and hallucinations, Allergy/Immunology: Negative for hives, rash, and allergies, Endocrine: Negative for neck swelling, polydipsia, polyuria, polyphagia, and marked weight changes, Hematologic/Lymphatic: Negative for swollen nodes, abnormal bleeding, and unusual bruising. 09:44 Neuro: Positive for numbness, of the anterior aspect of left shoulder, left bicep, posterior aspect of left shoulder and left tricep. Exam: 09:44 Constitutional: This is a well developed, well nourished patient who is awake, alert, mervat and in no acute distress. Head/Face: Normocephalic, atraumatic. Eyes: Pupils equal round and reactive to light, extra-ocular motions intact. Lids and lashes normal. Conjunctiva and sclera are non-icteric and not injected. Cornea within normal limits. Periorbital areas with no swelling, redness, or edema. ENT: Nares patent. No nasal discharge, no septal abnormalities noted. Tympanic membranes are normal and external auditory canals are clear. Oropharynx with no redness, swelling, or masses, exudates, or evidence of obstruction, uvula midline. Mucous membranes moist. Neck: Trachea midline, no thyromegaly or masses palpated, and no cervical lymphadenopathy. Supple, full range of motion without nuchal rigidity, or vertebral point tenderness. No Meningismus. Chest/axilla: Normal chest wall appearance and motion. Nontender with no deformity. No lesions are appreciated. Cardiovascular: Regular rate and rhythm with a normal S1 and S2. No gallops, murmurs, or rubs. Normal PMI, no JVD. No pulse deficits. Respiratory: Lungs have equal breath sounds bilaterally, clear to auscultation and percussion. No rales, rhonchi or wheezes noted. No increased work of breathing, no retractions or nasal flaring. Abdomen/GI: Soft, non-tender, with normal bowel sounds. No distension or tympany. No guarding or rebound. No evidence of tenderness throughout. Back: No spinal tenderness. No costovertebral tenderness. Full range of motion. Male : Normal genitalia with no discharge or lesions. Skin: Warm, dry with normal turgor. Normal color with no rashes, no lesions, and no evidence of cellulitis. MS/ Extremity: Pulses equal, no cyanosis. Neurovascular intact. Full, normal range of motion. Psych: Awake, alert, with orientation to person, place and time. Behavior, mood, and affect are within normal limits. 09:44 ECG was reviewed by the Attending Physician. 09:44 Neuro: Orientation: is normal, appropriate for stated age, no acute changes, Mentation: is normal, appropriate for stated age, Memory: is normal, appropriate for stated age, no acute changes, Cranial nerves: grossly normal, is grossly normal based on the patient's age, no acute changes, Cerebellar function: is grossly normal, is grossly normal based on the patient's age, no acute changes, Motor: is normal, is grossly normal based on the patient's age, no acute changes, moves all fours, strength is 5/5 in all extremities, Sensation: numbness, that is mild, of the left arm and left tricep and posterior aspect of left shoulder, Gait: is steady, appropriate for age, Babinski testing is normal, seizure activity, is not displayed by the patient. 09:48 Radiologist reports: non acute mervat Vital Signs: 09:22 BP 157 / 96; Pulse 87; Resp 20; Temp 98.5(O); Pulse Ox 98% ; Weight 68.04 kg (R); nj1 Height 5 ft. 7 in. ; Pain 7/10; 09:35 BP 157 / 96; Pulse 89; Resp 18; Pulse Ox 99% ; ko1 10:03 BP 176 / 94; Pulse 92; Resp 18; Pulse Ox 97% on R/A; ko1 10:24 BP 125 / 73; Pulse 69; Resp 18; Pulse Ox 99% ; bp 09:22 Body Mass Index 23.49 (68.04 kg, 170.18 cm) nj1 09:22 Pain Scale: Adult nj1 NIH Stroke Scale Scores: 09:30 NIHSS Score: 0 ko1 09:44 NIHSS Score: 1 mervat MDM: 09:30 Patient medically screened. mervat 09:49 Differential diagnosis: CVA, TIA. Data reviewed: vital signs, nurses notes, lab test mervat result(s), EKG, radiologic studies, CT scan, plain films. Consideration of Admission/Observation Patient was admitted/placed on observation. Escalation of care including admission/observation considered. Management of patient was discussed with the following: Power Bender Operator: neuro [facility]. I considered the following discharge prescriptions or medication management in the emergency department Medications were administered in the Emergency Department. See MAR. Test considered but Not performed: MRI: no mri brain. Care significantly affected by the following chronic conditions: cad,cva x2, on asa plavix. 03/24 09:41 Order name: Basic Metabolic Panel; Complete Time: 10:19 [facility] 03/24 09:41 Order name: CBC with Diff; Complete Time: 10:19 [facility] 03/24 09:41 Order name: LFT's; Complete Time: 10:19 03/24 09:41 Order name: Magnesium; Complete Time: 10:19 03/24 09:41 Order name: NT PRO-BNP; Complete Time: 10:19 03/24 09:41 Order name: PT-INR; Complete Time: 10:19 03/24 09:41 Order name: Troponin HS; Complete Time: 10:19 03/24 09:41 Order name: CRP; Complete Time: 10:19 03/24 09:41 Order name: XRAY Chest (1 view) 03/24 09:41 Order name: CT Stroke Brain w/o Contrast; Complete Time: 10:19 03/24 09:41 Order name: CT Head Angio; Complete Time: 10:03/24 09:41 Order name: CT Neck Angio; Complete Time: 10:03/24 09:41 Order name: EKG; Complete Time: 09:42 03/24 09:41 Order name: Cardiac monitoring; Complete Time: 09:46 03/24 09:41 Order name: EKG - Nurse/Tech; Complete Time: 09:46 03/24 09:41 Order name: IV Saline Lock; Complete Time: 09:46 03/24 09:41 Order name: Labs collected and sent; Complete Time: :46 03/24 09:41 Order name: O2 Per Protocol; Complete Time: :46 03/24 09:41 Order name: O2 Sat Monitoring; Complete Time: 09:46 03/24 10:20 Order name: Blood Pressure Recheck; Complete Time: 10:25 [facility] EC:44 Rate is 83 beats/min. Rhythm is regular. QRS [place] is Normal. AL interval is normal. QRS mervat interval is normal. QT interval is normal. No Q waves. T waves are Normal. No ST changes noted. Clinical impression: Normal ECG and No evidence of ischemia. Reviewed by me. Administered Medications: :59 Drug: NS 0.9% IV 1000 ml Route: IV; Rate: 1 bolus; Site: right antecubital; ko1 09:59 Drug: foLIC Acid IVPB 1 mg Route: IVPB; Site: right antecubital; ko1 10:05 Drug: TNK FOR STROKE - Tenecteplase IV 0.25 mg/kg {Co-Signature: ko1 (Bird, bp Vika KUHN).} Route: IV; Rate: per protocol; Site: right antecubital; 10:24 Drug: Famotidine IVP 20 mg Route: IVP; Site: right antecubital; bp 10:44 Drug: Ondansetron IVP 4 mg Route: IVP; Site: right antecubital; ko1 Disposition Summary: 03/24/23 09:56 Transfer Ordered Transfer Location: [facility] mervat Reason: Higher level of care mervat Condition: Fair mervat Problem: new mervat Symptoms: are unchanged mervat Accepting Physician: to [facility](03/24/23 11:37) ko1 Diagnosis - Essential (primary) hypertension mervat - Cerebral infarction, unspecified - left arm numbness(03/24/23 10:10) mervat Forms: - Medication Reconciliation Form mervat - SBAR form mervat NIH Stroke Scale - NIH Stroke Score Date: 03/24/2023 Time: 09:30 Total Score = 0 10. Dysarthria (speech clarity - read or repeat words) - 0(Normal) 11. Extinction and Inattention (visual/tactile/auditory/spatial/personal) - 0(No abnormality) 1a. Level of Consciousness (LOC) - 0(Alert) 1b. Level of Consciousness (LOC) (Month \T\ Age) - 0(Both) 1c. LOC Commands (Open \T\ Closes Eyes/Senior Safety Management Consultant) - 0(Both) 2. Best Gaze (Lateral Gaze Paresis) - 0(Normal) 3. Visual Field Loss - 0(No visual loss) 4. Facial Palsy - 0(Normal) 5a. Left Arm: Motor (10-second hold) - 0(No drift) 5b. Right Arm: Motor (10-second hold) - 0(No drift) 6a. Left Leg: Motor (5-second hold - always test supine) - 0(No drift) 6b. Right Leg: Motor (5-second hold - always test supine) - 0(No drift) 7. Limb Ataxia (finger/nose \T\ heel/solano - test with eyes open) - 0(Absent) 8. Sensory Loss (pinprick arms/legs/face) - 0(Normal) 9. Best Language: Aphasia (description/naming/reading) - 0(No aphasia) Initials: ko1 NIH Stroke Scale - NIH Stroke Score Date: 03/24/2023 Time: 09:44 Total Score = 1 10. Dysarthria (speech clarity - read or repeat words) - 0(Normal) 11. Extinction and Inattention (visual/tactile/auditory/spatial/personal) - 0(No abnormality) 1a. Level of Consciousness (LOC) - 0(Alert) 1b. Level of Consciousness (LOC) (Month \T\ Age) - 0(Both) 1c. LOC Commands (Open \T\ Closes Eyes/Senior Safety Management Consultant) - 0(Both) 2. Best Gaze (Lateral Gaze Paresis) - 0(Normal) 3. Visual Field Loss - 0(No visual loss) 4. Facial Palsy - 0(Normal) 5a. Left Arm: Motor (10-second hold) - 0(No drift) 5b. Right Arm: Motor (10-second hold) - 0(No drift) 6a. Left Leg: Motor (5-second hold - always test supine) - 0(No drift) 6b. Right Leg: Motor (5-second hold - always test supine) - 0(No drift) 7. Limb Ataxia (finger/nose \T\ heel/solano - test with eyes open) - 0(Absent) 8. Sensory Loss (pinprick arms/legs/face) - 1(Mild to moderate loss) 9. Best Language: Aphasia (description/naming/reading) - 0(No aphasia) Initials: mervat Signatures: Dispatcher [employer] Raul Jacob MD MD cha Peltier, Brian, RN RN bp Vika Pang RN RN ko1 Farnaz Whyte RN RN nj1 Vika Pang RN1 Corrections: (The following items were deleted from the chart) 10:10 09:56 to [facility] mervat mervat 10:10 09:56 Cerebral infarction, unspecified mervat mervat 11:37 10:10 to [facility] mervat ko1
[2023-03-24] MEDS ORDERED: TENECTEPLASE 50 MG/10 ML VIAL IV ONE (09:58)
[2023-03-24] MEDS ORDERED: FOLIC ACID 5 MG/ML VIAL ONE (09:59)
[2023-03-24] MEDS ORDERED: NA CHLORIDE 0.9% 1,000 ML ONE (09:59)
--- NOTE | 2023-03-24 10:03 | RAD REPORT ---
EXAM DESCRIPTION: CT - Ct Stroke Brain Wo Cont - 03/24/2023 9:52 am CLINICAL HISTORY: STROKE ALERT COMPARISON: <Comparisons> TECHNIQUE: All CT scans are performed using dose optimization technique as appropriate and may inclu de automated exposure control or mA/KV adjustment according to patient size. FINDINGS: No intracranial hemorrhage, hydrocephalus or extra-axial fluid collection.No areas of brai n edema or evidence of midline shift. The paranasal sinuses and mastoids are clear. The calvarium is intact. IMPRESSION: No acute intracranial abnormality. Conveyed to Dr. Pandey by Dr. Hall at 0930 on 03/24/23
[2023-03-24 10:04] LABS: Protime INR 0.9
--- NOTE | 2023-03-24 10:11 | RAD REPORT ---
EXAM DESCRIPTION: CT - Neck Angio - 03/24/2023 9:54 am CLINICAL HISTORY: cva COMPARISON: Head angio dated 03/24/2023; Head Brain Wo Cont dated 03/02/2021Neck Angio dated 02/28/2021; Soft Tissue Neck W/Contr dated 04/11/2016; SOFT TISSUE NECK W CONTRAST dated 11/30/2015 TECHNIQUE: CT angiography of the neck vessels was performed with maximum intensity reformatted image s. All CT scans are performed using dose optimization technique as appropriate and may include automated exposure control or mA/KV adjustment according to patient size. FINDINGS: A left aortic arch is identified with normal three vessel configuration of the great vesse ls. Moderate stenosis of the left proximal ICA secondary to calcified noncalcified plaque. The stenosis i s closer to the 60-69% range. The left common carotid artery is patent. The left external carotid art gino is mildly narrowed. Streak artifact obscures portions of the right ICA at the level of C2-C3. The right common carotid ar arnaldo is widely patent. The right proximal ICA has a moderate stenosis, though closer to 50%. Dominant right vertebral artery is widely patent. The nondominant left vertebral artery is occluded a long much of its course. It does minimally reconstitute at the upper cervical levels. This finding is chronic. CAROTID STENOSIS REFERENCE USING NASCET CRITERIA: Mild - <50% stenosis. Moderate - 50-69% stenosis. Severe - 70-94% stenosis. Near occlusion - 95-99% stenosis. Occluded - 100% stenosis. IMPRESSION: Moderate bilateral proximal ICA stenoses. Note that there is streak artifact obscuring a short-segment of the right ICA around C2-3. 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
[2023-03-24 10:13] LABS: ALT/SGPT 33 U/L (16-61); AST/SGOT 23 U/L (15-37); Albumin 4.4 g/dL (3.4-5.0); Alkaline Phosphatase 67 U/L (45-117); BUN Blood Urea Nitrogen 19 mg/dL (7-18); Bicarbonate 26 mEq/L (21-32); Bilirubin Direct 0.2 mg/dL (0-0.2); Bilirubin Indirect, Calculated 0.5 mg/dL (0.2-0.8); Bilirubin Total 0.7 mg/dL (0.2-1.0); Glomerular Filtration Rate 75 ml/min (=/>90); Glucose Level 93 mg/dL (74-106); Magnesium 1.8 mg/dL (1.6-2.4); NT PRO-BNP 26 pg/mL (<125); Potassium 4.4 mEq/L (3.5-5.1); Protein, Total 8.1 g/dL (6.4-8.2); Sodium Level 135 mEq/L (136-145); Troponin High Sensitivity 6.2 pg/mL (<58.9)
[2023-03-24 10:15] LABS: C-Reactive Protein < 2.90 mg/L (<3.00)
--- NOTE | 2023-03-24 10:16 | RAD REPORT ---
EXAM DESCRIPTION: CT - Head angio - 03/24/2023 9:54 am CLINICAL HISTORY: DIZZINESS COMPARISON: Head Brain Wo Cont dated 03/02/2021; Head angio dated 02/28/2021 TECHNIQUE: CT angiography of the head was performed with maximum intensity reformatted images. All CT scans are performed using dose optimization technique as appropriate and may include automated exposure control or mA/KV adjustment according to patient size. FINDINGS: Anterior circulation: No aneurysm or large vessel occlusion. No hemodynamically significant stenosis. No arteriovenous malf ormation identified. Posterior circulation: Chronically diminutive and possibly distally occluded left vertebral artery which is nondominant. Thi s finding is chronic. The right vertebral artery which is dominant is widely patent. No hemodynamical ly significant stenosis. No arteriovenous malformation identified. CAROTID STENOSIS REFERENCE USING NASCET CRITERIA: Mild - <50% stenosis. Moderate - 50-69% stenosis. Severe - 70-94% stenosis. Near occlusion - 95-99% stenosis. Occluded - 100% stenosis. IMPRESSION: No significant flow abnormality is detected. Diminutive/ possibly occluded left distal v ertebral artery is chronic.
--- NOTE | 2023-03-24 10:18 | RAD REPORT ---
EXAM DESCRIPTION: RAD - Chest Single View - 03/24/2023 10:13 am CLINICAL HISTORY: COUGH COMPARISON: <Comparisons> FINDINGS: Lines: None. Lungs: No evidence of edema or pneumonia. Pleural: No significant pleural effusions or pneumothorax. Cardiac: The heart size is within normal limits. Mediastinum: Within normal limits. Bones: No acute fractures. Other: None IMPRESSION: No acute cardiopulmonary disease.
[2023-03-24] MEDS ORDERED: ONDANSETRON 4 MG/2 ML VIAL ONE (10:48)
[2023-03-24 11:57] VITALS: TEMP 98.5
[2023-03-24 12:04] VITALS: BP 125/73; O2SAT 99
--- NOTE | 2023-03-27 07:16 | EKG ---
Test Date: 2023-03-24 Test Time: 09:27:38 [employer] Instructor: IVANA MEASUREMENT RESULTS: Intervals: Rate: 83 [place]: 152 QRSD: 94 QT: 344 QTc: 404 [place]: P: 77 [place]: 152 QRS: 76 T: 63 INTERPRETIVE STATEMENTS: Normal sinus rhythm Normal ECG Compared to ECG 03/02/2021 09:15:26 No significant changes Electronically Signed On 03-27-23 07:07:51 CDT by Kevin Hernandez
== END 2023-03-24 11:37 | disposition short-term general hospital (02) ==
LOC: ER 09:20
DX: I63.9 Cerebral infarction, unspecified (principal); I10 Essential (primary) hypertension; R29.701 NIHSS score 1; Z86.73 Personal history of transient ischemic attack (TIA), and cerebral infarction without residual deficits
CPT/HCPCS: 92977; 93005; 85025; 80048; 36415; 83735; 85610; 80076; 84484; 83880; 86140; 70496; 70498; 70450; 71045; 96375; 96374; 99285; Q9967; J3101; J2405; J7030